=== PATIENT | female | born 2000 | race Caucasian/White ===

== ENCOUNTER 2024-11-19 08:37 | Emergency (ER) | payer OTHER, SELFPAY ==
--- OUTSIDE RECORDS SUMMARY | 2024-11-19 08:40 | XMS_ITS | Data Portability ---
Author Organization [place] - [facility] [employer], [employer] PROJECT COORDIN[employer] [facility] Address [address] [place] [address] Assessment Encounter Date Assessment Date Assessment LastModified by Organization Details LastModified Time 08/30/2024 08/30/2024 ASSESSMENT: Patient is a good candidate for conservative care and the prognosis is for a favorable outcome that achieves the patients' goals. We discussed etiology, activity modifications, home care, and other treatment options. Initially, it is recommended that the patient receive in-office treatment 1 times per week for 8 weeks at which time a re-evaluation will be performed to determine an appropriate change in plan. Initially, treatment will focus on joint manipulation to restore range of motion and reduce pain. We will slowly progress to therapeutic exercises and activities to improve function, strength, and stability may also be used as warranted. If the patient is not responding as expected, more invasive procedures will be discussed along with a referral. All considerations above were discussed with the patient and questions answered to satisfaction. If the patient should have any additional questions, or should the condition evolve or worsen, the patient should not hesitate to contact our office. [email or web address] Not available 08/30/2024 18:44:21 Plan of Treatment Reminders Order Date Submit Date Provider Last Modified By Organization Details Last Modified Time Details Appointments None record ed. Lab None record ed. Referral None record ed. Procedures None record ed. Surgeries None record ed. Imaging None record ed. Medication Orders None record ed. Patient TargetsNo targets recorded. Patient InstructionsNo instructions recorded. Reason for Referral None Reported. Problems Name Problem SNOMED Code Status Onset Date Resolution Date Notes Provider Name and Address Organization Details Recorded Time Thoracic segmental dysfunction 180597380 Active 2024 Denis Bedolla [place] [address] [place], [address], [facility] 18:44:22 Low back pain 701729372 Active 2024 [place] [address], [place], [address], [facility] 18:44:22 Lumbar segmental dysfunction 258498883 Active 2024 [place] [address], [place], [address], [facility] 18:44:22 Somatic dysfunction of sacral spine 075353425 Active 2024 [facility] [place] [address], [place], [address], [facility] 18:44:22 Problem Notes None recorded. Procedures Surgical History Date Name Laterality Status Provider Name and Address Organization Details Recorded Time [address]5490: Spinal manipulation , 3 to 4 regions completed [place], [place] [address], [place], [address], [facility] 08/30/2024 18:45:28 Imaging Results None recorded. Procedure Notes None recorded. Medical Equipment None Reported. Medications Name Sig Start Date Stop Date Status Note LastModified by Organization Details LastModified Time sumatriptan 50 mg tablet Take 1 Tablet (50 mg) by mouth every 2 hours if needed for Migraine. Give at minimum 2 hours apart. Max Dose: 200mg (4 tabs) per 24hrs.* active Not Available Not Available No t Available doxylamine 10 mg-pyridoxine (vit B6) 10 mg tablet,delaye d release active Not Available Not Available No t Available Vitals None Recorded Social History None recorded. Functional Status None recorded. Mental Status None recorded. Family History Nothing Reported. Medical History No medical history recorded. Gynecological HistoryNo gynecological history recorded. Obstetrics History GPAL:G 0 P 0 0 0 0 Past Encounters Encounter ID Performer Location Encounter Start Date Encounter Closed Date Diagnosis/Indication Diagnosis SNOMED-CT Code Diagnosis ICD10 Code Diagnosis Note [id number] [place] [facility] [address] [place] [address] 08/30/2024 12:07:51 08/30/2024 18:54:35 Lumbar segmental dysfunction 968735531 M99.03 Low back pain 637082048 M54.50 Somatic dy sfunction of sacral spine 711555245 M99.04 Thoracic s egmental dysfunction 343800580 M99.02 Health Concerns Section Related Observation LastModified by Organization Detai ls LastModified Time None Recorded Concern Status LastModified by Organization Details LastModified Time None Recorded Advance Directives Directive None Recorded Payers Encounter Date Sequence Insurance Name Policy Number Policy Fong Covered Member ID Fong Member ID Guarantor Name 08/30/2024 1 [employer] [id number] Theodore Ferro [id number] [place] Ferro 08/30/2024 2 [employer] [id number] Singh Rao [id number] Angeles Ferro Notes Date Note Type Note Provider Name and Address Organization Details Recorded Time 08/30/2024 text/html HPI - Lumbar SpineReported bypatient.Location: bilateral Quality:aching Severity:not changing Timing:morning Aggravating Factors:standing Alleviating Factors:ice Patient presents for mid back pain. She was diagnosed with scoliosis 5 years ago. She is currently 17 weeks . Patient was seeing a chiropractor previously. Denis Keven Bedolla DC [address], [place], [address], [facility] [place] - [facility] 08/30/2024 18:47:29 OBGyn Episode No OBEpisode recorded.
--- OUTSIDE RECORDS SUMMARY | 2024-11-19 08:40 | XMS_ITS | Clinical Summary ---
Author Organization [facility] Address [address] [place] [id number] Care Team Providers Care Bag Machine Set Up Operator Name Role Phone NimaSir farrellfelipe Sanchez DO Primary Care Provider [phone] Allergies Active Allergy Reactions Criticality Noted Date Comments Milk Containing Products (Dairy) Headache 06/10/2024 Petrolatum,White *Unknown 09/27/2021 Lips peel, tongue turned white Medications vit 89-tmlv-ftufd-d bravo 27mg iron- 800 mcg-250 mg cap Take by mouth. Activ e ferrous sulfate 325 mg delayed release tabletIndicatio ns:Low ferritin Take one tablet by mouth every other day. 90 Tablet 1 5 Active doxylamine-pyri doxine, vit B6, (Diclegis) 10-10 mg TbECIndications :Nausea and vomiting in (HC) Take 1 Tablet by mouth 2 times daily if needed (nausea and vomiting). 60 Tablet 2 5 Active Breast Pump PurchaseIndicat ions:Lactating mother (HC) Electric breast pump for home use. Gestational age at delivery: TBD weeks. Reason for need: lactating mother. Length of need: 99 months (lifetime use) 1 Each 5 Active Active Problems Problem Noted Date Diagnosed Date Transfusion of blood product declined due to alevism reason 08/21/2024 06/14/2024 Overview (06/14/2024): Estimated Date of Delivery: 02/07/25 Patient's last menstrual period was 05/03/2024 (exact date). GBS: 28wk labs: Last Tdap: 2013 Last Flu vaccine: None OB Labs: ABORH Date Value Ref Range Status 06/10/2024 O Rh Negative Final ANTIBODY SCREEN Date Value Ref Range Status 06/10/2024 Negative Negative Final TREPONEMA PALLIDUM Date Value Ref Range Status 06/10/2024 Non-Reactive Non-Reactive Final RUBELLA AB (IGG), IMMUNE STATUS Date Value Ref Range Status 06/10/2024 3.44 Index Final Comment: Index Interpretation ----- <0.90 Not consistent with immunity 0.90-0.99 Equivocal > or = 1.00 Consistent with immunity HEPATITIS B SURFACE ANTIGEN Date Value Ref Range Status 06/10/2024 NON-REACTIVE NON-REACTIVE Final HEPATITIS C ANTIBODY Date Value Ref Range Status 06/10/2024 NON-REACTIVE NON-REACTIVE Final HIV AG/AB, 4TH GEN Date Value Ref Range Status 06/10/2024 NON-REACTIVE NON-REACTIVE Final VARICELLA ZOSTER VIRUS ANTIBODY (IGG) Date Value Ref Range Status 06/10/2024 1.19 S/CO Final Comment: Signal to Cut-off S/CO Interpretation --------- <1.00 Negative - Antibody not detected > or = 1.00 Positive - Antibody detected HEMOGLOBIN Date Value Ref Range Status 06/10/2024 12.6 11.7 - 15.5 g/dL Final PLATELET COUNT Date Value Ref Range Status 06/10/2024 213 140 - 400 Thousand/uL Final CHLAMYDIA PROBE Date Value Ref Range Status 06/10/2024 Negative Final N GONORRHOEAE PROBE Date Value Ref Range Status 06/10/2024 Negative Final Allergies Allergen Reactions Milk Containing Products (Dairy) Headache Petrolatum,White *Unknown Lips peel, tongue turned white OB History Para Term AB Living 1 0 0 0 0 0 SAB IAB Ectopic Multiple Live Births 0 0 0 0 0 # Outcome Date GA Lbr Ghassan/2nd Weight Sex Type Anes PTL Lv 1 Current Past Medical History: . Date Anemia Anxiety disorder Depression Migraine headache Dairy products seem to casue migraines Past Surgical History: . Laterality Date TYMPANOSTOMY Problems (from 06/10/24 to present) No problems associated with this episode. Isabella Ordaz RN ....06/14/2024 8:11 AM Pap smear for cervical cancer screening 03/05/20 Overview (03/05/2024): 02/2024 NIL Plan: PAP/HPV due 02/2027 Moderate episode of recurrent major depressive d isorder 10/15/2022 Generalized anxiety disorder 10/15/2022 Anxiety and depression 08/07/2018 Estimated Date of Delivery Comme nts Yes 02/07/2025 Based on last me nstrual period of 05/03/2024 (Exact Date) Encounters Date Type Department Care Team Description 11/19/2024 Nurse Triage [facility] Nurse Triage Pcp, No Questions 11/19/20[address] [address] Fani Loving, Dysuria 11/17/2024 3:15 PM CDT OB Encounter [address] [address] Fani Loving, Care (28 weeks 2 days/Still having frequent urination without pain or burning, wondering if baby is head down) 11/17/2024 Travel 11/12/2024 2:15 PM CDT Office Visit [facility] [address] [place] [address] Teto Choudhury MD Urinary Problem (urgency to go to the bathroom/pain comes and goes ) 11/12/2024 Travel 11/12/[address] [address] Nataliia Chavis, DO Lab 11/11/[address] [address] Fani Loving, Questions (Possible Kidney stone or UTI. ) 11/11/2024 Telephone [facility] [address] [place] [address] Nataliia Chavis, Error-please disregard 10/27/2024 2:50 PM CDT Office Visit [facility] [address] [place] [address] Fani Loving, ER Follow up (Possible kidney stone, pain has mostly resolved, having mild back/side pain still.) 10/27/2024 Travel 10/24/2024 12:07 PM CDT - 10/24/2024 1:18 PM CDT Hospital Encounter [facility] [address] [place] [address] Marck Warren MD Discharge Disposition: Home Self Care 10/24/2024 Telephone [facility] [address] [facility] [place] [address] Fani Loving, FOLLOW UP APPOINTMENT 10/24/2024 Hospital Encounter [facility] [address] [place] [address] 10/24/2024 Travel 10/24/2024 Nurse Triage [facility] [address] [place] [address] Nataliia Chavis, Error-please disregard 10/20/2024 2:25 PM CDT OB Encounter [facility] [address] [facility] [place] [address] Fani Loving, Care (24w2d; GTT today; lingering cough sx from one week ago. Has taken some Coricidan as was advised earlier in ) 10/20/2024 Travel 10/06/2024 1:45 PM MANAGER FREELANCE Ancillary Procedure [facility] [address] [place] [address] 10/05/2024 Travel 09/20/2024 4:00 PM MANAGER FREELANCE Ancillary Procedure [facility] [address] [facility] [place] [address] 09/20/2024 3:15 PM MANAGER FREELANCE OB Encounter [facility] [address] [place] [address] Fani Loving, DO Care (20 weeks, still feeling tired, has not started iron supplement, just received in the mail. ) 09/19/2024 Travel 09/16/2024 Orders Only [facility] [address] [place] [address] Fani Loving, DO <No scans attached> 09/14/2024 3:45 PM MANAGER FREELANCE Orders Only [facility] [address] [place] [address] Lab, [facility] 09/14/2024 Travel 09/09/2024 Travel 08/30/2024 Telephone [facility] [address] [place] [address] Fani Loving, DO Questions from Last 3 Months Immunizations Immunization Administration Dates Next Due DTaP 12/15/2006, 3,05/26/2002,03/31,02/02/2002 HIB PRP-T (ActHIB,Hiberix) 03/31/2002,02/02/2002 Hepatitis A (Peds) 03/18/2014 Hepatitis B (Peds) 03/31/2002,02/02/2002 Hepatitis B, Unspecified 12/14/2002 Hib Conjugate, Unspecified 03/06/2003,12/14/2002 Inactivated Polio Vaccine 03/31/2002,02/02/2002 Influenza A (H1N1), Live Intranasal 07/12/2009 MENINGOCOCCAL VACCINE 2 VIAL [id number] (MENVEO) 03/18/2014 MMR 12/15/2006,03/03/2003 Pneumococcal conj 7-Valent (Prevnar 7) 2,03/31/2002,02/02/2002 Pneumococcal, Unspecified 12/14/2002 Polio Virus, Unspecified 12/15/2006,06/03/2003 Tdap 11/17/2024,03/18/2014 Varicella Vaccine 12/15/2006,12/14/2002 Family History Medical History Relation Name Comments Good Health Brother Good Health Father Heart Disease Maternal Aunt 1 Heart valve replacement Unknown Maternal Aunt 2 Heart Disease Maternal Grandfather Arthritis Maternal Grandmother Anxiety disorder Mother Good Health Mother Anxiety disorder Paternal Aunt 1 Unknown Paternal Aunt 2 Good Health Paternal Grandfather Anxiety disorder Paternal Grandmother Depression Paternal Grandmother Mental illness Paternal Grandmother Unknown Paternal Uncle Relation Name Status Comments Brother Alive Father Alive Maternal Aunt 1 Alive Maternal Aunt 2 Alive Maternal Grandfather Alive Maternal Grandmother Alive Mother Alive Paternal Aunt 1 Alive Paternal Aunt 2 Alive Paternal Grandfather Alive Paternal Grandmother Alive Paternal Uncle Alive Social History Tobacco Use Types Packs/Day Years Used Date Smoking Tobacco: Never Smokeless Tobacco: Never Tobacco Cessation:Counseling Given: Not Answered Alcohol Use Standard Drinks/Week Comments Not Currently 0 (1 standard drink = 0.6 oz pur e alcohol) PHQ-2 Answer Date Recorded PHQ-2 TOTAL SCORE 2 02/23/2024 Social Connections Answer Date Recorded Do you often feel lonely or isolated from those around you? 0 02/23/2024 Financial Resource Strain Answer Date R ecorded Difficulty of Paying Living Expenses 3 02/23/2024 Difficulty of Paying Living Expenses Not on file 02/23/2024 Food Insecurity Answer Date Recorded Do you worry your food will run out before you are able to buy more? 1 02/23/2024 Transportation Needs Answer Date Record ed Does lack of transportation keep you from medica l appointments? 1 02/23/2024 Does lack of transportation keep you from work, meetings or getting things that you need? 1 02/23/2024 Housing Stability Answer Date Recorded What is your housing situation today? 1 02/23/2024 Utilities Answer Date Recorded Do you have trouble paying f or utilities (for example, heat, electricity, water, phone)? 1 02/23/2024 Estimated Date of Delivery Comme nts Yes 02/07/2025 Based on last me nstrual period of 05/03/2024 (Exact Date) Sex and Gender Information Value Date Recorded Sex Assigned at Not on file Legal Sex Female 4:27 PM MANAGER FREELANCE Gender Identity Not on file Sexual Orientation Not on file Obstetrics History Para Term AB IAB SAB Ectopic Multiple Livin g Live Births 1 Date Outcome GA Total Labor Labor/2nd/3rd Weight Sex Type Anes PTL Laura A1 A5 Name Clin Current Summary Episode Dates Number of Fetuses Estimated Date of Delivery 06/10/2024 - Present (11/19/2024) 02/07/2025 (set by Belen Padilla RN Student on 06/10/2024 based on Last Menstrual Period on 05/03/2024 (Exact Date)) Dating Summary Based On DEMARCUS GA Diff Last Menstrual Period on 05/03/2024 (Exact Date) 02/07/2025 Working Vitals Pregravid Weight Height TWG (As of 11/19/2024) Pregrav id BMI 1.565 m (5' 1.61) Date GA Fund Present FHR Mvmt BP Weight Edema Alb Glu Ket Dil/ Eff/Sta 5 24w6d Inpatient data not displayed here. See encounter summary. Notes Progress Notes - OB Encounte r - 11/17/2024 - GA:28w2d 11/17/2024 - 28w2d - Fani Loving DO Patient is here for routine care at 28w2d -specific issues: Maternal Rh neg status; blood type Rh neg per NIPT Declines blood products for alevism reasons Low ferritin, on PO iron Concerns today: still experiencing frequent urination. Has sensation of incomplete emptying. No burning, no hematuria. Wonders if she is experiencing urinary frequency due to positioning of fetus. No Contractions, bleeding, loss of fluid. No Headache, vision changes, edema, right upper quadrant pain. Baby is moving well. O: See flowsheet Bedside US: fetus in breech presentation with head on maternal R A/P: TDaP: today Discussed signs/symptoms of labor and when to call Reviewed preeclampsia symptoms Patient experiencing urinary frequency, no infection per review of UA last week. Encouraged her to continue to monitor, may likely be related to gravid uterus and growing fetus. Fani Loving DO .................... 11/17/2024 3:35 PM Progress Notes - OB Encounte r - 10/20/2024 - GA:24w2d 10/20/2024 - 24w2d - Fani Loving DO Patient is here for routine care at 24w2d -specific issues: Maternal Rh neg status; blood type Rh neg per NIPT Declines blood products for alevism reasons Low ferritin, on PO iron Concerns today: having some URI symptoms - lost voice, ear pain, cough. Took Coricidin HBP medication and had been taking Tylenol initially, but now not as much. Still feeling run down. Dad learned that he had history of jaundice at . No Contractions, bleeding, loss of fluid No Headache, vision changes, edema, right upper quadrant pain. Baby is moving well Objective: See flowsheet Gen: alert, pleasant, NAD Head: Normocephalic/atraumatic Eyes: no conjunctival injection, EOMI Ears: external ears normal, canals clear b/l, and TMs dalton with normal light reflex Lungs: CTA B/l, breathing comfortably on room air Heart: RRR, no M/G/R Abdomen: gravid uterus U+4 Assessment/Plan: care - Labs today: GTT, Hgb, Syphilis Discussed signs/symptoms of labor and when to call Reviewed preeclampsia symptoms RTC in 4 weeks, sooner if concerns. URI - Reviewed appropriate supportive cares for including PRN Tylenol, cetirizine, nasal saline or Flonase. Can continue Coricidin as well for symptom relief. If symptoms worsening, recommend follow up. Fani Loving DO .................... 10/20/2024 2:59 PM Progress Notes - OB Encounte r - 09/20/2024 - GA:20w0d 09/20/2024 - 20w0d - Fani Loving DO Patient is here for routine care at 20w0d -specific issues: Rh neg; blood type Rh neg as well Declines blood products for alevism reasons Low ferritin, on PO iron Concerns today: still feeling tired, hasn't started iron supplement yet. Continues to experience periodic nausea - finds that taking Diclegis HS is helpful in preventing AM nausea. No Contractions, bleeding, loss of fluid. No Headache, vision changes, edema, right upper quadrant pain. Baby is moving Discussed signs/symptoms of labor and when to call Reviewed preeclampsia symptoms RTC in 4 weeks, sooner if needed Fani Loving DO .................... 09/20/2024 3:29 PM GER FREELANCE Progress Notes - Orders Only - 09/16/2024 - GA:19w3d 09/16/2024 - 19w3d - Fani Loving DO Rx for PO iron sent to pharmacy for low ferritin. Fani Loving DO .................... 09/16/2024 2:28 PM GER FREELANCE Progress Notes - OB Encounte r - 08/20/2024 - GA:15w4d 08/20/2024 - 15w4d - Fani Loving DO Patient is here for routine care at 15w5d -specific issues: Rh neg status Declines blood products for alevism reasons Concerns today: Doing relatively well. Has had some episodes of vaginal itching that improved with increased hydration, but now having increased urination. No fevers, abdominal pain, or significant changes in vaginal discharge. Declines UA and T/G/C today, but will reach out in the future if she becomes more symptomatic prior to our next appointment. Patient shares that she is Confucianist and declines blood products. Would like to ensure this is noted in her chart. She is discerning whether or not she will receive Rhogam at 28 weeks & delivery. Discussed today. Will attempt to add on blood type to Sai screening. She is okay with medications for baby at , but would decline blood products for baby as well. No contractions, bleeding, loss of fluid. Discussed signs/symptoms of labor and when to call Reviewed preeclampsia symptoms RTC in 4 weeks or sooner if needed. Schedule anatomy scan at 20 weeks. Fani Loving DO .................... 08/21/2024 12:39 PM GER FREELANCE Progress Notes - OB Encounte r - 07/23/2024 - GA:11w4d 07/23/2024 - - Fani Loving DO FIRST OB VISIT HPI: Angeles Ferro is a 23 y.o. female at 11w4d with ya intrauterine here today for a initial OB exam. She is here with her , Theodore Estimated due date is Estimated Date of Delivery: 02/07/25 based on LMP. Nausea/Vomiting: yes, improved with vitamin B6 and doxyalamine Fatigue: yes Bleeding: no Taking vitamins: yes Options of cell-free DNA testing, serum AFP, SMA and CF carrier screeing were discussed. Patient is interested in pursuing testing with cfDNA at this time. AMA: no Previous : n/a No FHX of preeclampsia or eclampsia. MENSTRUAL HISTORY LMP:Patient's last menstrual period was 05/03/24. 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 No history of STIs OB History Para Term AB Living 1 SAB IAB Ectopic Multiple Live Births # Outcome Date GA Lbr Ghassan/2nd Weight Sex Type Anes PTL Lv 1 Current Past Medical History: . Date Anemia Anxiety disorder Depression Migraine headache Dairy products seem to casue migraines Past Surgical History: . Laterality Date TYMPANOSTOMY Family History Problem Relation Age of Onset Anxiety disorder Mother Good Health Mother Good Health Father Good Health Brother Heart Disease Maternal Aunt 50 Heart valve replacement Unknown Maternal Aunt Anxiety disorder Paternal Aunt Unknown Paternal Aunt Unknown Paternal Uncle Arthritis Maternal Grandmother Heart Disease Maternal Grandfather Depression Paternal Grandmother Anxiety disorder Paternal Grandmother Mental illness Paternal Grandmother Good Health Paternal Grandfather Social History Tobacco Use Smoking status: Never Smokeless tobacco: Never Substance Use Topics Alcohol use: Not Currently Current Outpatient Medications Medication Sig Adapalene (Differin) 0.3 % topical gel Apply topically to affected area(s) once daily. ascorbic acid, vitamin C, (Vitamin C) 1,000 mg tablet Take 1,000 mg by mouth once daily. dpjvmni-skwsclvcywikw-sxhojhzw (Excedrin Migraine) 250-250-65 mg Take 1 Tablet by mouth every 6 hours if needed for Headache. Max acetaminophen dose: 4000mg in 24 hrs. cholecalciferol, Vitamin D3, (Vitamin D-3) 5,000 unit tab tablet Take by mouth once daily. clindamycin 1% (CLEOCIN-T) 1 % lotion Apply topically to affected area(s) 2 times daily. doxylamine-pyridoxine, vit B6, (Diclegis) 10-10 mg TbEC Take 1 Tablet by mouth 2 times daily if needed (nausea and vomiting). ferrous sulfate (FeroSuL) 325 mg (65 mg iron) tablet Take 325 mg by mouth once daily with a meal. ketoconazole 2% topical (NIZORAL) cream Apply to areas around the nose twice daily for a month or until clear vit 46-iyie-ekvea-dha 27mg iron- 800 mcg-250 mg cap Take by mouth. pyridoxine, vitamin B6, (Vitamin B-6) 25 mg tablet Take 25 mg by mouth once daily. SUMAtriptan (IMITREX) 50 mg tablet Take 1 Tablet (50 mg) by mouth every 2 hours if needed for Migraine. Give at minimum 2hrs apart. Max Dose: 200mg per 24hrs. No current facility-administered medications for this visit. Medications have been reviewed by me and are current to the best of my knowledge and ability. ALLERGIES Milk containing products (dairy) and Petrolatum,white MENTAL HEALTH HISTORY History of psychiatric diagnosis: depression and anxiety, not currently requiring treatment Current mental health provider: No Currently taking any psychiatric medications? No REVIEW OF SYSTEMS Comprehensive ROS complete and negative other than noted in HPI and on OB Questionnaire. PHYSICAL EXAM BP 101/66 (Cuff Site: Left Arm, Position: Sitting, Cuff Size: Adult Regular) Pulse 72 Wt 52.5 kg (115 lb 12.8 oz) LMP 05/03/2024 (Exact Date) BMI 21.45 kg/m General: Pleasant female in no acute distress, alert and appropriate HEENT: Conjunctiva clear, nares patent, TMs normal, mucous membranes moist Neck: No lymphadenopathy or thyromegaly Heart: Regular rate and rhythm Lungs: Clear to auscultation bilaterally; breathing comfortably on room air Abdomen: Nontender. : patient declined Extremities: No edema Skin: No concerning lesions Psych: normal affect HR: visualized on bedside US Ultrasound #1: 8 weeks DEMARCUS: 02/07/25, based on LMP ASSESSMENT/PLAN Normal first visit. 1. Discussed orientation, general information, lifestyle, nutrition, exercise, warning signs, resources, lab testing, risk screening. Questions answered. 2. Typical remaining course reviewed. 3. Labor signs/warning signs reviewed. 4. Appropriate weight gain during and healthy eating/exercise reviewed at length. 5. Ultrasound for dating reviewed. 6. Reviewed labs. 7. discussed risks versus benefits of risk screening; patient elects to proceed with cfDNA (Sai) collection today 8. Followup in 4 weeks, sooner if needed Hx of scoliosis Anticipate consultation with anesthesia later in as patient anticipates she may want epidural during labor. 30 minutes spent in chart review, cyxj-zo-vkhs with patient, and documentation on day of encounter. GER FREELANCE Progress Notes - OB Encounte r - 06/10/2024 - GA:5w3d 06/10/2024 - 5w3d - Belen Padilla RN Student SUBJECTIVE: Angeles Ferro is a 23 y.o. female, , who presents for confirmation and ob education. Patient presents to the clinic alone. Had positive test at home. This was Planned, Desired. Patient was not on contraception. 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 MENSTRUAL HISTORY: Patient's last menstrual period was 05/03/2024 (exact date).: Cycle Regularity: Irregular. Stopped control (Nuva ring) in July 2023. Had a total of 6 periods since July 2023. Last period 05/03/24. Past Medical History: . Date Anemia Anxiety disorder Depression Migraine headache Dairy products seem to casue migraines OB History Para Term AB Living 1 SAB IAB Ectopic Multiple Live Births # Outcome Date GA Lbr Ghassan/2nd Weight Sex Type Anes PTL Lv 1 Current 5P'S SUBSTANCE ABUSE SCREEN FOR ALCOHOL, DRUGS AND TOBACCO: Did any of your parents have a problem with using alcohol or drugs? No Do any of your friends (peers) have problems with drug or alcohol use? No Does your partner have a problem with drug or alcohol use? No Before you knew you were , how often did you drink beer, wine, wine coolers or liquor or use any kind of drug? Sometimes In the past month, how often did you drink beer, wine, wine coolers or liquor or use any kind of drug? Rarely How much did you smoke, vape or use tobacco or nicotine in any form before you knew you were ? Don't Smoke, Vape or use Tobacco Genetic Screening Genetic Screening/Teratology Counseling- Includes patient, baby's father, or anyone in either family with: Patient's age 35 years or older as of estimated date of delivery: No Thalassemia (Icelandic, Taiwanese, Mediterranean, or background): MCV less than 80: No Neural tube defect (Meningomyelocele, Spina bifida, or Anencephaly): No Congenital heart defect: No Down syndrome: No Gustabo-Sachs (Ashkenazi Islam, Cajun, Puerto Rican Chilean): No Compa disease (Ashkenazi Islam): No Familial dysautonomia (Ashkenazi Islam): No Sickle cell disease or trait (): No Hemophilia or other blood disorders: No Muscular dystrophy: No Cystic fibrosis: No [place]'s chorea: No Intellectual disability and/or autism: No Other inherited genetic or chromosomal disorder: No Maternal metabolic disorder (eg. Type 1 diabetes, PKU): No Patient or baby's father had child with defects not listed above: No Recurrent loss, or a stillbirth: No Medications (including supplements, vitamins, herbs, or OTC drugs)/illicit/recreational drugs/alcohol since last menstrual period: Yes If yes, agent(s) and strength/dosage: 3 drinks since last period, Vit D3, Iron, Vit C, Excedrin x 1 CURRENT MEDICATIONS: Current Outpatient Medications Medication Sig Adapalene (Differin) 0.3 % topical gel Apply topically to affected area(s) once daily. ascorbic acid, vitamin C, (Vitamin C) 1,000 mg tablet Take 1,000 mg by mouth once daily. pqapmre-lemrmxhtjqvoa-mvbqnsvq (Excedrin Migraine) 250-250-65 mg Take 1 Tablet by mouth every 6 hours if needed for Headache. Max acetaminophen dose: 4000mg in 24 hrs. cholecalciferol, Vitamin D3, (Vitamin D-3) 5,000 unit tab tablet Take by mouth once daily. clindamycin 1% (CLEOCIN-T) 1 % lotion Apply topically to affected area(s) 2 times daily. ferrous sulfate (FeroSuL) 325 mg (65 mg iron) tablet Take 325 mg by mouth once daily with a meal. ketoconazole 2% topical (NIZORAL) cream Apply to areas around the nose twice daily for a month or until clear vit 28-nerr-bldat-dha 27mg iron- 800 mcg-250 mg cap Take by mouth. SUMAtriptan (IMITREX) 50 mg tablet Take 1 Tablet (50 mg) by mouth every 2 hours if needed for Migraine. Give at minimum 2hrs apart. Max Dose: 200mg per 24hrs. No current facility-administered medications for this visit. Medications have been reviewed by me and are current to the best of my knowledge and ability. ALLERGIES: Milk containing products (dairy) and Petrolatum,white OBJECTIVE: Ht 1.565 m (5' 1.61) Wt 51.8 kg (114 lb 3.2 oz) LMP 05/03/2024 (Exact Date) BMI 21.15 kg/m ,URINE (no units) Date Value 02/23/2024 Negative ASSESSMENT/PLAN: No diagnosis found. EDUCATION/PATIENT INSTRUCTIONS - Advised patient to start/continue vitamin. - Discussed risk of using alcohol, tobacco, other drugs in . - Discussed healthy lifestyle in . - Provided copy of [facility] book and book inserts, discussed liaf-hpu-ortrtzl medications, and follow up. - Encouraged patient to call clinic at [phone] with any vaginal bleeding, fluid leaking from vagina, severe abdominal pain, nausea with severe vomiting, fever higher than 100.4F, painful urination, headache not relieved by Tylenol, or other concerns - labs completed with today's visit. - Patient informed to schedule 1st trimester dating ultrasound between 7-10 weeks. - Initial OB appointment with FP/OB scheduled. PHQ-9, and COVID-19 vaccine discussion to be completed at this visit. 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 Belen Padilla, TRE Student .................... 06/10/2024 2:52 PM Last Filed Vital Signs Vital Sign Reading Time Taken Comments Blood Pressure 108/72 11/17/2024 3:26 PM CDT Pulse 78 11/17/2024 3:26 PM CDT Temperature 37.1 C (98.8 F) 10/27/2024 3:03 PM CDT Respiratory Rate 20 10/24/2024 12:31 PM CDT Oxygen Saturation 99% 11/12/2024 2:05 PM CDT Inhaled Oxygen Concentration - - Weight 60.8 kg (134 lb) 11/17/2024 3:26 PM CDT Height 156.5 cm (5' 1.61) 06/10/2024 2:03 PM CD T Body Mass Index 24.82 06/10/2024 2:03 PM CDT Plan of Treatment Upcoming Encounters Date Type Department Care Team (Late st Contact Info) Description 11/29/2024 3:15 PM CDT OB Encounter [facility] [address] [place] [address] Fani Loving, [address] [place] [address] 12/15/2024 3:40 PM CDT OB Encounter [facility] [address] [place] [address] Fani Loving DO [address] [facility] [place] [address] 12/29/2024 3:15 PM CDT OB Encounter [facility] [address] [facility] [address] Fani Loving, DO [address] [facility] [address] 01/12/2025 3:40 PM CDT OB Encounter [facility] [address] [place] [address] Fani Loving, DO [address] [place] [address] 01/19/2025 2:25 PM CDT OB Encounter [facility] [address] [facility] [address] Fani Loving, DO [address] [place] [address] 01/26/2025 2:25 PM CDT OB Encounter [facility] [address] [place] [address] Fani Loving, DO [address] [place] [address] 02/02/2025 2:25 PM CDT OB Encounter [facility] [address] [place] [address] Fani Loving, DO [address] [facility] [address] Health Maintenance Due Date Last Done Comments HPV series for age 9-26 (1 - 3-dose series) 2016 COVID-19 vaccine series (2023- season) 2024 07/27/2021, 12/18/2020, 11/27/2020 Depression screening for age 12+ 02/22/2025 02/23/2024, 02/25/2023, 12/19/2022, Additional history exists Influenza Vaccine (Season Ended) 2025 BMI (ht and wt on same day) for age 18+ 06/10/2025 06/10/2024, 02/23/2024, 08/19/2022, Additional history exists Chlamydia for age 16-24 06/10/2025 06/10/2024, 02/22 Pap test for age 21-65 02/22/2027 02/23/2024 Tetanus booster 11/17/2034 11/17/2024, 03/18/2014 Pneumococcal series for age 6-49 Aged Out 12/14/2002, 05/26/2002, 03/31/2002, Additional history exists No longer eligible based on patient's age to complete this topic HIV for age 15-65 Completed 06/10/2024 Hepatitis C screening for age 18-79 Completed 06/10/2024 Tdap Completed 11/17/2024, 03/18/2014 RSV vaccine for adults or (No Doses Required) Completed Procedures Procedure Name Priority Date/Time Associated Diagnosis Comments URINALYSIS MACROSCOPIC - [facility] ONLY POC DIP ([facility]) Routine 11/12/2024 2:17 PM CDT Urinary frequency URINALYSIS MICROSCOPIC Routine 11/12/2024 2:16 PM CDT Urinary frequency URINE CULTURE Routine 11/12/2024 2:16 PM CDT Urinary frequency URINALYSIS MACROSCOPIC - [facility] ONLY POC DIP ([facility]) Routine 10/27/2024 3:32 PM CDT Flank pain URINE CULTURE Routine 10/27/2024 3:31 PM CDT Flank pain URINE CULTURE Add On 10/24/2024 12:50 PM CDT URINALYSIS MICROSCOPIC STAT 10/24/2024 12:50 PM CDT UA W/ SEDIMENT EXAM REFLEXED PER CRITERIA STAT 10/24/2024 12:50 PM CDT TREPONEMA PALLIDUM Routine 10/20/2024 2: 39 PM CDT Encounter for care (HC) GLUCOSE TOLERANCE, GESTATIONAL SCREEN 1H Routine 10/20/2024 2:39 PM CDT Encounter for care (HC) HEMOGLOBIN Routine 10/20/2024 2:39 PM CDT Encounter for care (HC) US OB LIMITED ANY TRI TA Routine 10/06/2024 2:10 PM MANAGER FREELANCE Encounter for care (HC) US OB BASIC ANATOMY SCREEN SINGLE TA Routine 09/20/2024 4:24 PM MANAGER FREELANCE Encounter for supervision of other normal , first trimester (HC) VITAMIN D 25 (DEFICIENCY) Routine 09/14/2024 3:43 PM MANAGER FREELANCE Vitamin D deficiency FERRITIN Routine 09/14/2024 3:43 PM MANAGER FREELANCE Low ferritin HEMOGLOBIN Routine 09/14/2024 3:43 PM MANAGER FREELANCE Low ferritin GC CHLAMYDIA TRACH PROBE Routine 06/10/2024 3:50 PM CDT Encounter for supervision of other normal , first trimester (HC) HIV 1/2 ANTIGEN/ANTIBODY FOURTH GENERATION W/RFL ([facility]) Routine 06/10/2024 3:44 PM CDT Encounter for supervision of other normal , first trimester (HC) ANTI HCV Routine 06/10/2024 3:44 PM CDT Encounter for supervision of other normal , first trimester (HC) ATOMIC SPECTROSCOPIST THIN PREP PAP SCREEN IMAGED Routine 02/23/2024 8:43 AM CDT Screening for cervical cancer from Last 3 Months or Most Recently Relevant to Health Maintenance Results * (ABNORMAL) POCT Urinalysis Dipstick Only [[id number]] (11/12/2024 2:17 PM CDT) Only the most recent of2 resultswithin the time period is included. PH 7.0 5.0 - 8.0 [facility] SPECIFIC GRAVITY 1.020 1.001 - 1.035 [facility] GLUCOSE NEGATIVE NEGATIVE [facility] BILIRUBIN NEGATIVE NEGATIVE [facility] KETONES NEGATIVE NEGATIVE [facility] OCCULT BLOOD NEGATIVE NEGATIVE [facility] PROTEIN NEGATIVE NEGATIVE [facility] NITRITE NEGATIVE NEGATIVE [facility] LEUKOCYTE ESTERASE TRACE(A) NEGATIVE [facility] Urine URINE SPECIMEN / Unknown 11/12/2024 2:17 PM CDT 11/12/2024 2:17 PM CDT us Teto Choudhury MD URINE Final Result [facility] [address] [place] [address], [facility] [address] [place] [address] * URINALYSIS MICROSCOPIC [59228.1] - routine (11/12/2024 2:16 PM CDT) Only the most recent of2 resultswithin the time period is included. RBC 0-2 0-2, None Seen /HPF 11/12/2024 10:28 PM CDT [facility] WBC 0-2 0-2, 3-5, None Seen /HPF 11/12/2024 10:28 PM CDT [facility] BACTERIA None Seen None Seen, Rare, Few Bacteria/ HPF 11/12/2024 10:28 PM CDT [facility] EPITHELIAL CELLS None Seen None Seen, Few Epi/HPF 11/12/2024 10:28 PM CDT [facility] HYALINE CASTS 0-2 0-2, 3-5 /LPF 11/12/2024 10:28 PM CDT [facility] Urine URINE SPECIMEN / Unknown Non-Blood / Unknown 11/12/2024 2:16 PM CDT 11/12/2024 2:17 PM CDT Teto Choudhury MD URINE Final Result Performing Organization Address [facility] Co de Phone Number [facility] [address] [address], [place] * URINE CULTURE [98410.2] (11/12/2024 2:16 PM CDT) Only the most recent of3 resultswithin the time period is included. CULTURE <10,000 CFU/mL multiple organisms 11/14/2024 2:20 PM CDT [facility] Urine URINE SPECIMEN / Unknown Non-Blood / Unknown 11/12/2024 2:16 PM CDT 11/12/2024 2:17 PM CDT Teto Choudhury MD MICROBIOLOGY Final Result Performing Organization Address [facility] Co de Phone Number [facility] [address] [place] [address], [place] * (ABNORMAL) Urinalysis W Reflex Microscopic if Positive (10/24/2024 12:50 PM CDT) COLOR Yellow Yellow Color 10/24/2024 1:03 PM CDT [facility] CLARITY Slightly Cloudy(A) Clear Clarity 10/24/2024 1:03 PM CDT [facility] SPECIFIC GRAVITY,URINE 1.015 1.010, 1.015, 1.020, 1.025 10/24/2024 1:03 PM CDT [facility] PH,URINE >=9.0(A) 6.0, 7.0, 8.0, 5.5, 6.5, 7.5, 8.5 10/24/2024 1:03 PM CDT [facility] UROBILINOGEN, QUALITATIVE Normal Normal EU/dl 10/24/2024 1:03 PM CDT [facility] PROTEIN, URINE 30(A) Negative mg/dL 10/24/2024 1:03 PM CDT [facility] GLUCOSE, URINE Negative Negative mg/dL 10/24/2024 1:03 PM CDT [facility] KETONES,URINE Negative Negative mg/dL 10/24/2024 1:03 PM CDT [facility] BILIRUBIN,URI NE Negative Negative 10/24/2024 1:03 PM CDT [facility] OCCULT BLOOD,URINE Moderate(A) Negative 10/24/2024 1:03 PM CDT [facility] NITRITE Negative Negative 10/24/2024 1:03 PM CDT [facility] LEUKOCYTE ESTERASE Moderate(A) Negative 10/24/2024 1:03 PM CDT [facility] Urine URINE SPECIMEN / Unknown Non-Blood / Unknown 10/24/2024 12:50 PM CDT 10/24/2024 1:00 PM CDT us Marck Warren MD URINE Final Resu lt [facility] [address] [place] [address] * TREPONEMA PALLIDUM (10/20/2024 2:39 PM CDT) TREPONEMA PALLIDUM Non-Reacti ve Non-Reacti ve 10/20/2024 11:46 PM CDT [facility] Blood BLOOD SPECIMEN / Unknown [facility] / Unknown 10/20/2024 2:39 PM CDT 10/20/2024 2:39 PM CDT us Fani Loving DO SEND OUTS Final Resu lt [facility] [address] [place] [address], * HEMOGLOBIN (10/20/2024 2:39 PM CDT) Only the most recent of2 resultswithin the time period is included. HEMOGLOBIN 12.0 11.7 - 15.5 g/dL [facility] Blood BLOOD SPECIMEN / Unknown 10/20/2024 2:39 PM CDT 10/20/2024 2:40 PM CDT Fani Loving DO HEMATOLOGY Final Resu lt Performing Organization Address City/[facility]/ZIP Co de Phone Number [facility] [address] [place] [address], [place] [phone] [facility] [address] [place] [address] * GLUCOSE TOLERANCE, GESTATIONAL SCREEN 1H (10/20/2024 2:39 PM CDT) GLUCOSE, GESTATIONAL SCREEN (50G)-140 CUTOFF 77 <140 mg/dL [facility] Blood BLOOD SPECIMEN / Unknown 10/20/2024 2:39 PM CDT 10/20/2024 2:40 PM CDT Fani Loving DO CHEMISTRY Final Resu lt Performing Organization Address [facility] Co de Phone Number [facility] [address] [place] [address], [place] [phone] [facility] [address] [place] [address] * US OB LIMITED ANY TRI TA (10/06/2024 2:10 PM MANAGER FREELANCE) Anatomical Region Laterality Modality , 2or 3 TRIMESTER, 1ST TRIMESTER Ultrasound 10/07/2024 7:09 AM MANAGER FREELANCE Impressions 10/07/2024 7:09 AM MANAGER FREELANCE Normal face. Dictated by Rex Avila MD @ 10/07/2024 7:09:05 AM (Electronically Signed) Narrative 10/07/2024 7:09 AM MANAGER FREELANCE For Patients: As a result of the 21st Century Cures Act, medical imaging exams and procedure reports are released immediately into your electronic medical record. You may view this report before your referring provider. If you have questions, please contact your health care provider. INDICATION: Incomplete visualization of face, follow-up COMPARISON: 09/20/2024 TECHNIQUE: Real time dalton scale imaging of the fetus was performed. FINDINGS: Sonographic imaging demonstrates a single living intrauterine gestation. Fetus demonstrates a regular cardiac rate of 152 beats per minute. Fetus has a vertex position. The placenta lies posterior fundal without evidence of placenta previa. Amniotic fluid volume appears normal. Single deepest vertical pocket: 4.4 cm. face appears normal. Procedure Note Rex Avila MD - 10/07/2024 For Patients: As a result of the Cures Act, medical imagingexams and procedure reports are released immediately into your electronicmedical record. You may view this report before your referring provider.If you have questions, please contact your health care provider. INDICATION: Incomplete visualization of face, follow-up COMPARISON: 09/20/2024 TECHNIQUE: Real time dalton scale imaging of the fetus was performed. FINDINGS: Sonographic imaging demonstrates a single living intrauterine gestation.Fetus demonstrates a regular cardiac rate of 152 beats per minute. Fetushas a vertex position. The placenta lies posterior fundal without evidenceof placenta previa. Amniotic fluid volume appears normal. Single deepestvertical pocket: 4.4 cm. face appears normal. IMPRESSION: Normal face. Dictated by Rex Avila MD @ 10/07/2024 7:09:05 AM (Electronically Signed) us Fani Loving DO US Final Resu lt * US OB BASIC ANATOMY SCREEN SINGLE TA (09/20/2024 4:24 PM MANAGER FREELANCE) Anatomical Region Laterality Modality , 2or 3 TRIMESTER Ultrasound 09/21/2024 7:25 AM MANAGER FREELANCE Impressions 09/21/2024 7:25 AM MANAGER FREELANCE Concordance of clinical and sonographic dating. Incomplete visualization of the face. Remainder of the anatomic survey normal. Short-term follow-up recommended. Dictated by Rex Avila MD @ 09/21/2024 7:25:38 AM (Electronically Signed) Narrative 09/21/2024 7:25 AM MANAGER FREELANCE For Patients: As a result of the Cures Act, medical imaging exams and procedure reports are released immediately into your electronic medical record. You may view this report before your referring provider. If you have questions, please contact your health care provider. INDICATION: Evaluate anatomy. COMPARISON: none TECHNIQUE: Real time dalton scale imaging of the fetus was performed as well as color Doppler analysis of the umbilical vessels. FINDINGS: Sonographic imaging demonstrates a single living intrauterine gestation. Fetus demonstrates a regular cardiac rate of 146 beats per minute. Fetus has a vertex position. The placenta lies fundal posterior without evidence of placenta previa. Amniotic fluid volume appears normal. Single deepest vertical pocket: 3.9 cm. The cervix is closed and measures 3.1 cm in length. The composite ultrasound gestational age is calculated at 20 weeks 1 day with an estimated sonographic due date of 02/06/2025. The estimated weight is 334 grams which lies at the 53rd %. The following biometric measurements were obtained: Biparietal diameter: 4.7 cm/20 weeks 1 day 54th% Head circumference: 17.0 cm/19 weeks 5 days 25th% Abdominal circumference: 15.1 cm/20 weeks 3 days 57th% Femur length: 3.2 cm/20 weeks 0 days 41st% The HC/AC ratio measures: 1.12 range (1.09-1.26) On anatomic survey, there is a normal appearance of the cerebral ventricles, cavum septi pellucidi, cisterna magna and cerebellum. The nose, lips, and facial profile appear normal. Incomplete visualization of the face view. The cervical, thoracic and lumbar spine are well visualized and appear normal. There is a normal four-chamber heart view and the left and right ventricular outflow tracts appear normal. The diaphragm and stomach appear normal. The kidneys and bladder also appear normal. There is a normal three-vessel cord and cord insertion site. The four extremities appear normal. Procedure Note Rex Avila MD - 09/21/2024 For Patients: As a result of the Cures Act, medical imagingexams and procedure reports are released immediately into your electronicmedical record. You may view this report before your referring provider.If you have questions, please contact your health care provider. INDICATION: Evaluate anatomy. COMPARISON: none TECHNIQUE: Real time dalton scale imaging of the fetus was performed as well as colorDoppler analysis of the umbilical vessels. FINDINGS: Sonographic imaging demonstrates a single living intrauterine gestation.Fetus demonstrates a regular cardiac rate of 146 beats per minute. Fetushas a vertex position. The placenta lies fundal posterior without evidenceof placenta previa. Amniotic fluid volume appears normal. Single deepestvertical pocket: 3.9 cm. The cervix is closed and measures 3.1 cm inlength. The composite ultrasound gestational age is calculated at 20weeks 1 day with an estimated sonographic due date of 02/06/2025. Theestimated weight is 334 grams which lies at the 53rd %. The following biometric measurements were obtained: Biparietal diameter: 4.7 cm/20 weeks 1 day 54th% Head circumference: 17.0 cm/19 weeks 5 days 25th% Abdominal circumference: 15.1 cm/20 weeks 3 days 57th% Femur length: 3.2 cm/20 weeks 0 days 41st% The HC/AC ratio measures: 1.12 range (1.09-1.26) On anatomic survey, there is a normal appearance of the cerebralventricles, cavum septi pellucidi, cisterna magna and cerebellum. Thefetal nose, lips, and facial profile appear normal. Incompletevisualization of the face view. The cervical, thoracic and lumbar spineare well visualized and appear normal. There is a normal four-chamberheart view and the left and right ventricular outflow tracts appearnormal. The diaphragm and stomach appear normal. The kidneys andbladder also appear normal. There is a normal three-vessel cord and fetalcord insertion site. The four extremities appear normal. IMPRESSION: Concordance of clinical and sonographic dating. Incomplete visualization of the face. Remainder of the anatomicsurvey normal. Short-term follow-up recommended. Dictated by Rex Avila MD @ 09/21/2024 7:25:38 AM (Electronically Signed) us Fani Loving DO US Final Resu lt * VITAMIN D 25 (DEFICIENCY) (09/14/2024 3:43 PM MANAGER FREELANCE) VITAMIN D,25-OH,TOTAL,IA 39 30 - 100 ng/mL [facility] Comment: Vitamin D Status 25-OH Vitamin D: Deficiency: <20 ng/mL Insufficiency: 20 - 29 ng/mL Optimal: > or = 30 ng/mL For 25-OH Vitamin D testing on patients on D2-supplementation and patients for whom quantitation of D2 and D3 fractions is required, the QuestAssureD(TM) 25-OH VIT D, (D2,D3), LC/MS/MS is recommended: order code 58036 (patients >2yrs). See Note 1 Note 1 For additional information, please refer to http://education.[employer]/faq/WRH880 (This link is being provided for informational/ educational purposes only.) Blood BLOOD SPECIMEN / Unknown 09/14/2024 3:43 PM MANAGER FREELANCE 09/14/2024 3:44 PM MANAGER FREELANCE Narrative [facility] - 09/15/2024 4:33 AM MANAGER FREELANCE FASTING:NO FASTING: NO us Fani Loving DO SEND OUTS Final Resu lt [facility] [address] [place] [address], [place] [phone] [facility] [address] [facility] [place] [address] * FERRITIN (09/14/2024 3:43 PM MANAGER FREELANCE) FERRITIN 17 16 - 154 ng/mL [facility] Blood BLOOD SPECIMEN / Unknown 09/14/2024 3:43 PM MANAGER FREELANCE 09/14/2024 3:44 PM MANAGER FREELANCE Narrative [facility] - 09/15/2024 4:33 AM MANAGER FREELANCE FASTING:NO FASTING: NO us Fani Loving DO CHEMISTRY Final Resu lt [employer] [facility] [address] [facility] [place] [address], [place] [phone] [facility] [address] [place] [address] * ATOMIC SPECTROSCOPIST PROBE - GC CHLAMYDIA DNA PCR [[id number]] (06/10/2024 3:50 PM CDT) CHLAMYDIA PROBE Negative 2:54 PM CDT [facility] N GONORRHOEAE PROBE Negative 06/11/2024 2:54 PM CDT [facility] Other URINE SPECIMEN / Unknown Non-Blood / Unknown 06/10/2024 3:50 PM CDT 06/10/2024 3:50 PM CDT Fani Loving DO MICROBIOLOGY Final Resu lt [facility] [address] [place] [address], * HIV 1/2 ANTIGEN/ANTIBODY FOURTH GENERATION W/RFL ([facility]) (06/10/2024 3:44 PM CDT) Pathologist [facility] HIV AG/AB, 4TH GEN NON-REACT RHONDA NON-REACT RHONDA [facility] Comment: HIV-1 antigen and HIV-1/HIV-2 antibodies were not detected. There is no laboratory evidence of HIV infection. PLEASE NOTE: This information has been disclosed to you from records whose confidentiality may be protected by state law. If your state requires such protection, then the state law prohibits you from making any further disclosure of the information without the specific written consent of the person to whom it pertains, or as otherwise permitted by law. A general authorization for the release of medical or other information is NOT sufficient for this purpose. For additional information please refer to http://education.[employer].Base CRM/faq/JGR432 (This link is being provided for informational/ educational purposes only.) The performance of this assay has not been clinically validated in patients less than 2 years old. Blood BLOOD SPECIMEN / Unknown 06/10/2024 3:44 PM CDT 06/10/2024 3:45 PM CDT Fani Sherrie Fabienne DO SEND OUTS Final Resu lt Performing Organization Address [facility]/ZIP Co de Phone Number [employer] [facility] [address] [place] [address], [facility] [address] [place] [address] * ANTI HCV (06/10/2024 3:44 PM CDT) HEPATITIS C ANTIBODY NON-REACTI VE NON-REACT RHONDA [facility] Comment: HCV antibody was non-reactive. There is no laboratory evidence of HCV infection. In most cases, no further action is required. However, if recent HCV exposure is suspected, a test for HCV RNA (test code 52231) is suggested. For additional information please refer to http://education.POPVOX/faq/BYK41w7 (This link is being provided for informational/ educational purposes only.) Blood BLOOD SPECIMEN / Unknown 06/10/2024 3:44 PM CDT 06/10/2024 3:45 PM CDT Fani Loving DO SEND OUTS Final Resu lt Performing Organization Address [facility] Co de Phone Number [employer] [facility] [address] [place] [address], [place] [phone] [facility] [address] [place] [address] * ATOMIC SPECTROSCOPIST THIN PREP PAP SCREEN IMAGED [[id number]] (02/23/2024 8:43 AM CDT) Case Report Gynecologic Cytology Report Case: [id number] Authorizing Provider: Nataliia Chavis DO Collected: 02/23/2024 0843 Ordering Location: [facility] Received: 02/23/2024 0917 Clinic First Screen: Shruthi Coleman Specimen: ATOMIC SPECTROSCOPIST ThinPrep Vial Screening, Cervical 03/05/2024 11:44 AM CDT [facility]-C ENTRAL LABORATORY INTERPRETATION/ RESULT NEGATIVE FOR INTRAEPITHELIAL LESION OR MALIGNANCY (NIL) (none) 03/05/2024 11:44 AM CDT [facility]-C ENTRAL LABORATORY at 1144 CDT SPECIMEN ADEQUACY Satisfactory for evaluation Endocervical component present Scant cellularity 03/05/2024 11:44 AM CDT [facility] [employer] LABORATORY-C ENTRAL LABORATORY Date of LMP 12/18/2023 03/05/2024 11:44 AM CDT [facility] [employer] LABORATORY-C ENTRAL LABORATORY Last Pap Date N/A 03/05/2024 11:44 AM CDT [facility] Last Pap Result First Pap/Unknown 11:44 AM CDT [facility] EN[facility]AL LAB[facility] Abnormal Pap or [place] Bx in last 5 years No 03/05/2024 11:44 AM CDT [facility] ENTRAL LABORATORY Menstrual Status Irregular Periods 03/05/2024 11:44 AM CDT [facility] ENTRAL LABORATORY [place] Bx Done Today No 03/05/2024 11:44 AM CDT [facility] ENTRAL LABORATORY Additional Information None given 03/05/2024 11:44 AM CDT [facility] [employer] [facility] ENTRAL LABORATORY Comment: Cytology is screened at [facility], Central Laboratory - [address] [address] and [facility] Laboratory - [address] [place] [address] and [facility] - [address] [place] [address] Interpreted at [facility], Central Laboratory - [address] [address] Automated Review Successful 03/05/2024 11:44 AM CDT [facility] ENTRAL LABORATORY Comment:Specimen processed s uccessfully by automated solar project coordination specialist device, ThinPrep Imaging System, [employer] Note The pap test is a screening technique, not a diagnostic procedure. It is used primarily to screen for squamous cancers and precursor lesions. Published studies have shown that it is subject to both false negative and false positive results. The pap test should not be used as the sole means to diagnose or exclude pre-malignant and malignant lesions. 03/05/2024 11:44 AM CDT [facility] [employer] LABORATORY-C ENTRAL LABORATORY Other (Cervical) Non-Blood / Unknown 02/23/2024 8:43 AM CDT 02/23/2024 9:17 AM CDT Nataliia Chavis DO PATHOLOGY/CYTOLOGY Final Resu lt [facility] LABORATORY-CENTRAL LABORATORY [address] [place] [address], [place] from Last 3 Months or Most Recently Relevant to Health Maintenance Insurance SHARED SERVICES [facility] SHARED SERVICES Care Teams Bag Machine Set Up Operator Relationship Specialty Start Date End Date Nataliia Chavis DO [address] [place], [place] [id number] PCP - General Family Practice 08/19/22
[2024-11-19 08:42] VITALS: BP 119/80; PULSE 82; RESP 16; TEMP 36.7; O2SAT 100; BMI 24.4
[2024-11-19 08:57] LABS: Appearance Urine Slightly Cloudy (Clear); Bilirubin Urine Negative (Negative); Blood Urine 2+ (Negative); Color Urine Yellow (Yellow); Glucose Urine Negative (Negative); Ketones Urine Negative (Negative); Leukocyte Esterase Urine Negative (Negative); Nitrite Urine Negative (Negative); Protein Urine 3+ (Negative); Specific Gravity Urine 1.025 (1.000-1.030); Urobilinogen Urine 0.2 (0.2-1.0)
--- NOTE | 2024-11-19 09:00 | ED.PREGNANCY ---
HPI - General Time Seen by Provider: 09:00 Date Seen: 11/19/24 Chief complaint: Urogenital Problems, Female Stated complaint: burning with urination () Time Seen by Provider: 11/19/24 08:48 Source: patient and RN notes reviewed Mode of arrival: ambulatory Limitations: no limitations History of Present Illness HPI Narrative: This 23-year-old female is coming in with dysuria since last night. She has had urgency symptoms, felt that times like she might have incontinence but has not happened. She notes about a week ago she was feeling more urgency but no dysuria. She has had no fevers, no nausea or vomiting. She is feeling a little left flank pain now. She notes about a month ago they may be thought she might of had a kidney stone. She did not have any imaging or further evaluation for this. She is currently about 28 weeks , is feeling the baby move, no contractions, no abnormal vaginal discharge. She sees Dr. Loving at [facility] for OB. Related Data Home Medications ?Medication ?Instructions ?Recorded ?Confirmed doxylamine 10 mg-pyridoxine (vit tab PO 11/19/24 B6) 10 mg tablet,delayed release ferrous sulfate 324 mg (65 mg 324 mg PO Q1D 11/19/24 11/19/24 iron) tablet,delayed release vit no.95-ferrous 1 tab PO DAILY 11/19/24 11/19/24 fumarate 28 mg-folic acid 800 mcg tablet () Allergies Allergy/AdvReac Type Severity Reaction Status Date / Time No Known Drug Allergies Allergy Verified 11/19/24 08:46 Review of Systems Narrative: As per HPI. PFSH PFS Social History Smoking Status: Never smoker How often do you have a drink containing alcohol: never AUDIT-C Alcohol total score: 0 Non-prescribed substance use: denies use Exam Const: Vital Signs, click to edit/add: Vital Signs - 24 hr 11/19/24 08:42 11/19/24 10:44 11/19/24 12:45 Temperature 98.1 F Pulse Rate 77 68 Pulse Rate [Pulse Oximeter] 82 Respiratory Rate 16 16 12 Blood Pressure 119/80 106/74 Blood Pressure [Ri ght Upper Arm] 119/80 Pulse Oximetry 100 100 99 Oxygen Delivery Me thod Room Air This 23-year-old female is alert, interactive, no apparent distress. Ambulatory into the ED of her own accord. She is afebrile. Sclera clear, symmetric facial function, speech is normal. Lungs are clear, good air entry, no wheezing or crackles, no tachypnea, no accessory muscle use. CV regular rate and rhythm, no murmur, normal S1-S2, no S3-S4. No CVA tenderness. Abdomen is gravid, uterus is nontender. She has no abdominal tenderness on examination. Documenting provider has reviewed patient's vital signs: yes Course Course ED Course: Nursing staff appropriately collected urinalysis on arrival. There are bacteria, some microscopic hematuria. Negative nitrite, negative leukocyte esterase. There are only 0-2 white blood cells, few squamous epithelial cells. There certainly could be infection but do need to consider kidney stones. This urine will obviously be cultured. Will initiate an IV, start with some IV Rocephin. Will look with ultrasound to look at the urinary system. Will confirm top tones as well while here. Reevaluation(s) Time of Reevaluation #1: 10:13 Reevaluation #1: heart tones 130s. Time of Reevaluation #2: 10:33 Reevaluation #2: Have reviewed ultrasound report with patient. She notes the pain on her left side is intensifying. She took 1 500 mg Tylenol about 7:30 a.m. this morning. Will give her 1000 mg oral Tylenol now. If that is not helping with her pain, will move to some narcotic coverage. She is in agreement with this plan. Have paged OB on-call through [facility] [place]. Time of Reevaluation #3: 13:47 Reevaluation #3: Patient was requesting more Tylenol, reviewed with her that she is at her dosing maximum for the time being. She is declining narcotics at this point, she is getting some back massage which seems to be helping some of her symptoms. She will let me know if she changes her mind. We are still awaiting bed placement at [facility]. Consultations Consultation #1: Did speak with Dr. Stover from [facility] whom is on for OB call. We did review case, she requests that I talked to Urology which is certainly appropriate. Reviewed with her that typically urology will not talk to us directly any longer out of the ED. I will try to page Urology. I will keep her updated. Did subsequently ask for urology to be paged the [facility], they were told that Urology will not consult with us. They will be paging the hospitalist. 11:03 a.m.: Did speak with hospitalist Dr. Sierra. He has asked that we talked to OB as well, they will be paging Dr. Varghese and I will update OB on this patient. There are no emergent obstetrical issues at this time. Patient need urology for potential/probable stenting. I am unable to talk to Urology, they will be consulted once patient is up there. Will discuss with this patient whether she prefers ambulance versus private vehicle for transfer. 11:54 a.m.: Did speak with Dr. Jackson perinatology from [facility]. Did update him of patient's situation, no concerning obstetrical complication at this time. Patient is not presumably infected but we have covered with Rocephin at this time. We are waiting urology consultation which will have to happen once she is at the facility. Time: 10:37 Vital Signs Vital signs: Initial Vital Signs Temperature 98.1 F 11/19/24 08:42 Temperature Source Temporal Artery Scan 11/19/24 08:42 Pulse Rate 82 11/19/24 08:42 Respiratory Rate 16 11/19/24 08:42 Blood Pressure 119/80 11/19/24 08:42 Blood Pressure Mean 93 11/19/24 08:42 Blood Pressure Position Sitting 11/19/24 08:42 Pulse Oximetry 100 11/19/24 08:42 Oxygen Delivery Method Room Air 11/19/24 08:42 Vital Signs Temperature 98.1 F 11/19/24 08:42 Pulse Rate 82 11/19/24 08:42 Respiratory Rate 16 11/19/24 08:42 Blood Pressure 119/80 11/19/24 08:42 Pulse Oximetry 100 11/19/24 08:42 Oxygen Delivery Method Room Air 11/19/24 08:42 Temperature 98.1 F 11/19/24 08:42 Pulse Rate 68 11/19/24 12:45 Respiratory Rate 12 11/19/24 12:45 Blood Pressure 106/74 11/19/24 12:45 Pulse Oximetry 99 11/19/24 12:45 Oxygen Delivery Method Room Air 11/19/24 08:42 Medications Administered Medications: Discontinued Medications Generic Name Dose Route Start Last Admin Trade Name Freq PRN Reason Stop Dose Admin Acetaminophen 1,000 mg 11/19/24 10:34 11/19/24 10:42 Acetaminophen 500 Mg Tablet PO 11/19/24 10:35 1,000 mg ONCE ONE Administration Ceftriaxone Sodium 1 gm/ 100 mls @ 200 mls/hr 11/19/24 09:33 11/19/24 10:20 Sodium Chloride IVPB 11/19/24 09:34 Infused ONCE ONE Infusion MDM - OB/Uterine Contractions Lab Data Attestation: I reviewed the patient's lab results. Labs: Lab Results 11/19/24 11/19/24 Range/Units 08:40 09:30 WBC 9.97 (4.50-11.00) K/uL RBC 3.60 L (4.00-5.20) m/uL Hgb 11.3 L (12.0-16.0) gm/dL Hct 33.1 (33.0-51.0) % MCV 92 (80-100) fL MCH 31 (26-34) pg MCHC 34 (32-36) gm/dL RDW Coeff of Rufino 13.1 (11.5-15.5) % Plt Count 135 L (140-440) K/uL Neut % (Auto) 74.2 H (42.0-72.0) % Lymph % (Auto) 18.0 L (20-44) % [place] % (Auto) 5.0 (0.0-11.0) % Eos % (Auto) 0.6 (0.0-7.0) % Baso % (Auto) 0.2 (0.0-3.0) % Neut # (Auto) 7.40 H (1.7-7.0) K/uL Lymph # (Auto) 1.80 (0.90-2.90) K/uL [place] # (Auto) 0.50 (0.00-0.90) K/UL Eos # (Auto) 0.06 (0.00-0.50) K/uL Baso # (Auto) 0.02 (0.00-0.30) K/uL Abs Immat Gran (auto) 0.20 (0.00-0.30) K/uL Imm/Tot Granulo (auto) 2.0 % Sodium 136 (135-149) mmol/L Potassium 3.8 (3.6-5.1) mmol/L Chloride 105 (96-114) mmol/L Carbon Dioxide 24 (20-32) mmol/L Anion Gap 7 (7-15) mEq/L BUN 16 (5-24) mg/dL Creatinine 0.5 (0.5-1.5) mg/dL Estimated Creat Clear 139.58 Estimated GFR 136 ml/min Glucose 92 (60-115) mg/dL Calcium 9.3 (8.4-10.6) mg/dL Urine Color Yellow (Yellow) Urine Appearance Slightly Cloudy A (Clear) Urine pH 7.0 (5.0-8.5) Ur Specific [place] 1.025 (1.000-1.030) Urine Protein 3+ A (Negative) Urine Glucose (UA) Negative (Negative) Urine Ketones Negative (Negative) Urine Blood 2+ A (Negative) Urine Nitrite Negative (Negative) Urine Bilirubin Negative (Negative) Urine Urobilinogen 0.2 (0.2-1.0) Ur Leukocyte Esterase Negative (Negative) Urine RBC 10-25 A (0-2) Urine WBC 0-2 (0-5) Ur Squamous Epith Cells Few (None-Few) Urine Bacteria Moderate A (None) Imaging Data US - abdomen: Attestation: I have reviewed the pertinent imaging results. Radiologist's impression: Patient: RONY ARTEAGA Facility:?[facility] Patient ID:?[id number] Site Patient ID:?[id number]. Site :?[id number] Study:?US-Abdomen Bilateral RENAL AND BLADDER-11/19/2024 10:12:39 AM Ordering Physician:Jamee Patel Final Report: Indication: UTI and flank pain. Twenty-eight weeks Technique: Sonography of the kidneys and bladder was performed. Imaging was provided by grayscale. Color Doppler was also performed. Comparison: None Findings: Right kidney: 11.1 x 4.4 x 4.9 centimeters. Cortex 1.5 centimeters. These measurements are within normal limits. No hydronephrosis, calculus or mass. Left kidney: 14.7 x 5.6 x 6.2 centimeters. Cortex 2 centimeters. These measurements are normal. There is moderate left hydronephrosis. No mass. Left hydroureter is also noted. A proximal stone is noted measuring 5 millimeters and a distal stone near the UVJ is identified measuring 6-7 millimeters which is likely the primary cause of the hydronephrosis and hydroureter. In the bladder, no left ureteral jet was observed. A right ureteral jet was observed Impression: 1. Left hydronephrosis and left hydroureter. This is moderate. There are 2 stones identified. A 5 millimeter stone proximally which is not obstructive in a 6-7 millimeter stone at the left ureterovesical junction which is likely the cause of the obstruction. 2. The right kidney appears normal. 3. In the bladder, a right ureteral jet was observed. There is no left ureteral jet. Dictated by Michi Ugalde MD @ 11/19/2024 10:22:00 AM (Electronic Signature) Discharge Plan Discharge Clinical Impression: Renal colic on left side, Hydronephrosis with renal and ureteral calculus obstruction Patient Disposition: Xfer [facility] Discharge Location: [facility] Condition: Stable Additional Instructions: Your room at [facility] is [place] [address]. Address: [address] [place] [address] Drop off at Door #1 (by [employer]) Park at [address] and either cross street or take skyway (takes longer). Go Past [facility] to [facility]. Third Floor, [place] [address] is your unit. Nurse phone number: [phone] Visiting hours end at 8pm. Prescriptions: No Action doxylamine-pyridoxine (vit B6) 10-10 mg tablet,delayed release (DR/EC) PO ferrous sulfate 324 mg (65 mg iron) tablet,delayed release (DR/EC) 324 mg PO Q1D PNV cmb#95-ferrous fumarate-FA [] 28 mg iron- 800 mcg tablet 1 tab PO DAILY Stand Alone Forms: Winning P[employer] Info Instructions
[2024-11-19 09:11] LABS: Bacteria Urine Moderate; Squamous Epithelial Cell Urine Few (None-Few); WBC Urine 0-2 (0-5)
--- NOTE | 2024-11-19 09:25 | CRLHL7_ITS ---
For Patients: As a result of the Century Cures Act, medical imaging exams and procedure reports are released immediately into your electronic medical record. You may view this report before your referring provider. If you have questions, please contact your health care provider. Indication: UTI and flank pain. Twenty-eight weeks Technique: Sonography of the kidneys and bladder was performed. Imaging was provided by grayscale. Color Doppler was also performed. Comparison: None Findings: Right kidney: 11.1 x 4.4 x 4.9 centimeters. Cortex 1.5 centimeters. These measurements are within normal limits. No hydronephrosis, calculus or mass. Left kidney: 14.7 x 5.6 x 6.2 centimeters. Cortex 2 centimeters. These measurements are normal. There is moderate left hydronephrosis. No mass. Left hydroureter is also noted. A proximal stone is noted measuring 5 millimeters and a distal stone near the UVJ is identified measuring 6-7 millimeters which is likely the primary cause of the hydronephrosis and hydroureter. In the bladder, no left ureteral jet was observed. A right ureteral jet was observed Impression: 1. Left hydronephrosis and left hydroureter. This is moderate. There are 2 stones identified. A 5 millimeter stone proximally which is not obstructive in a 6-7 millimeter stone at the left ureterovesical junction which is likely the cause of the obstruction. 2. The right kidney appears normal. 3. In the bladder, a right ureteral jet was observed. There is no left ureteral jet. Dictated by Michi Uglade MD @ 11/19/2024 10:22:00 AM (Electronically Signed)
[2024-11-19 09:40] LABS: Basophils Absolute Auto 0.02 K/uL (0.00-0.30); Basophils Percent Auto 0.2 % (0.0-3.0); Eosinophils Absolute Auto 0.06 K/uL (0.00-0.50); Eosinophils Percent Auto 0.6 % (0.0-7.0); Hematocrit 33.1 % (33.0-51.0); Hemoglobin* 11.3 gm/dL (12.0-16.0); Mean Corpuscular HGB Conc 34 gm/dL (32-36); Mean Corpuscular Hemoglobin 31 pg (26-34); Mean Corpuscular Volume 92 fL (80-100); Neutrophils Percent Auto 74.2 % (42.0-72.0); Platelet Count* 135 K/uL (140-440); RDW Coefficient of Variation % 13.1 % (11.5-15.5); White Blood Count* 9.97 K/uL (4.50-11.00)
[2024-11-19] MEDS: cefTRIAXone 1 GM in 0.9 % SODIUM CHLORIDE Mini-bag 100 ML IVPB (09:41)
--- OUTSIDE RECORDS SUMMARY | 2024-11-19 09:43 | XMS_ITS | Clinical Summary ---
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 Name Role Phone NimaSir farrellfelipe Sanchez DO Primary Care Provider [phone] Allergies Active Allergy Reactions Criticality Noted Date Comments Milk Containing Products (Dairy) Headache 06/10/2024 Petrolatum,White *Unknown 09/27/2021 Lips peel, tongue turned white Medications vit 70-cvjf-tdsac-d bravo 27mg iron- 800 mcg-250 mg cap [...] Transfusion of blood product declined due to moravian reason 08/21/2024 06/14/2024 Overview (06/14/2024): Estimated Date [...] Department Care Team Description 11/19/2024 Nurse Triage [facility] Nurse Triage Pcp, No Questions 11/19/2024 Nurse [address] [address] Fani Loving, Dysuria 11/17/2024 3:15 PM CDT OB Encounter [address] [address] Fani Loivng, Care (28 weeks 2 days/Still having frequent urination without pain or burning, wondering if baby is head down) 11/17/2024 Travel 11/12/2024 2:15 PM CDT Office Visit [facility] [address] [place] [address] Teto Choudhury MD Urinary Problem (urgency to go to the bathroom/pain comes and goes ) 11/12/2024 Travel 11/12/[address] [address] Nataliia Chavis, DO Lab 11/11/[address] [address] Fani Loving, Questions (Possible Kidney stone or UTI. ) 11/11/2024 Telephone [facility] [address] [place] [address] Nataliia Chavis, Error-please disregard 10/27/2024 2:50 PM CDT Office Visit [facility] [address] [place] [address] Fani Loving, ER Follow up (Possible kidney stone, pain has mostly resolved, having mild back/side pain still.) 10/27/2024 Travel 10/24/2024 12:07 PM CDT - 10/24/2024 1:18 PM CDT Hospital Encounter [facility] [address] [place] [address] Marck Warren MD Discharge Disposition: Home Self Care 10/24/2024 Telephone [facility] [address] [facility] [place] [address] Fani Loving, FOLLOW UP APPOINTMENT 10/24/[address] [facility] [address] [place] [address] 10/24/2024 Travel 10/24/2024 Nurse Triage [facility] [address] [place] [address] Nataliia Chavis, Error-please disregard 10/20/2024 2:25 PM CDT OB Encounter [facility] [address] [place] [address] Fani Loving, Care (24w2d; GTT today; lingering cough sx from one week ago. Has taken some Coricidan as was advised earlier in ) 10/20/2024 Travel 10/06/2024 1:45 PM NIGHT FILLER Ancillary Procedure [facility] [address] [place] [address] 10/05/2024 Travel 09/20/2024 4:00 PM NIGHT FILLER Ancillary Procedure [facility] [address] [place] [address] 09/20/2024 3:15 PM NIGHT FILLER OB Encounter [facility] [address] [place] [address] Fani Loving, DO Care (20 weeks, still feeling tired, has not started iron supplement, just received in the mail. ) 09/19/2024 Travel 09/16/2024 Orders Only [facility] [address] [place] [address] [address] Fani Loving, DO <No scans attached> 09/14/2024 3:45 PM NIGHT FILLER Orders Only [facility] [address] [place] [address] Lab, [facility] 09/14/2024 Travel 09/09/2024 Travel 08/30/2024 Telephone [facility] [address] [place] [address] Fani Loving, DO Questions from Last 3 [...] on file Legal Sex Female 4:27 PM NIGHT FILLER Gender Identity Not on file Sexual Orientation Not on file Obstetrics History Para Term AB IAB SAB Ectopic Multiple Livin g Live Births 1 Date Outcome GA Total Labor Labor/2nd/3rd Weight Sex Type Anes PTL Laura A1 A5 Name Clin Current Summary Episode Dates Number of Fetuses Estimated Date of Delivery 06/10/2024 - Present (11/19/2024) 02/07/2025 (set by Belen Padlila RN Student on 06/10/2024 based on Last [...] neg per NIPT Declines blood products for moravian reasons Low ferritin, on PO iron Concerns [...] neg per NIPT Declines blood products for moravian reasons Low ferritin, on PO iron Concerns [...] neg as well Declines blood products for moravian reasons Low ferritin, on PO iron Concerns [...] Fani Loving DO .................... 09/20/2024 3:29 PM T FILLER Progress Notes - Orders Only - 09/16/2024 - GA:19w3d 09/16/2024 - 19w3d - Fani Loving DO Rx for PO iron sent to pharmacy for low ferritin. Fani Loving DO .................... 09/16/2024 2:28 PM T FILLER Progress Notes - OB Encounte r - 08/20/2024 - GA:15w4d 08/20/2024 - 15w4d - Fani Loving DO Patient is here for routine care at 15w5d -specific issues: Rh neg status Declines blood products for moravian reasons Concerns today: Doing relatively well. Has had some episodes of vaginal itching that improved with increased hydration, but now having increased urination. No fevers, abdominal pain, or significant changes in vaginal discharge. Declines UA and T/G/C today, but will reach out in the future if she becomes more symptomatic prior to our next appointment. Patient shares that she is Gnosticist and declines blood products. Would like to [...] Fani Loving DO .................... 08/21/2024 12:39 PM T FILLER Progress Notes - OB Encounte r - [...] HISTORY LMP:Patient's last menstrual period was 05/03/24. 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 [...] Take 1,000 mg by mouth once daily. ecbzbbb-vgudujterynmg-vewmxakg (Excedrin Migraine) 250-250-65 mg Take 1 Tablet [...] for a month or until clear vit 50-bycb-atkbn-dha 27mg iron- 800 mcg-250 mg cap Take [...] labor. 30 minutes spent in chart review, kzvk-ib-hijd with patient, and documentation on day of encounter. T FILLER Progress Notes - OB Encounte r - [...] of estimated date of delivery: No Thalassemia (Lithuanian, Maltese, Mediterranean, or background): MCV less than 80: No Neural tube defect (Meningomyelocele, Spina bifida, or Anencephaly): No Congenital heart defect: No Down syndrome: No Gustabo-Sachs (Ashkenazi Congregation, Cajun, Lithuanian South African): No Compa disease (Ashkenazi Congregation): No Familial dysautonomia (Ashkenazi Congregation): No Sickle cell disease or trait (): No Hemophilia or other blood disorders: No Muscular dystrophy: No Cystic fibrosis: No [place]'s chorea: No Intellectual disability and/or autism: No [...] Take 1,000 mg by mouth once daily. qtqcfpk-higoefqbtemfd-tzatembg (Excedrin Migraine) 250-250-65 mg Take 1 Tablet [...] for a month or until clear vit 76-oizj-pfjoe-dha 27mg iron- 800 mcg-250 mg cap Take [...] of Beginnings book and book inserts, discussed tjjm-ojp-djmmybd medications, and follow up. - Encouraged patient to call clinic at [phone] with any vaginal bleeding, fluid leaking from [...] Description 11/29/2024 3:15 PM CDT OB Encounter [facility] [address] [place] [place] [address] Fani Loving, [address] [place] [address] 12/15/2024 3:40 PM CDT OB Encounter [facility] [address] [place] [address] Fani Loving DO [address] [place] [address] 12/29/2024 3:15 PM CDT OB Encounter [facility] [address] [facility] [address] Fani Loving, DO [address] [facility] [address] 01/12/2025 3:40 PM CDT OB Encounter [facility] [address] [place] [address] Fani Loving, DO [address] [place] [address] 01/19/2025 2:25 PM CDT OB Encounter [facility] [address] [facility] [address] Fani Loving, DO [address] [place] [address] 01/26/2025 2:25 PM CDT OB Encounter [facility] [address] [place] [address] Fani Loving, DO [address] [place] [address] 02/02/2025 2:25 PM CDT OB Encounter [facility] [address] [place] [address] Fani Loving, DO [address] [facility] [address] Health Maintenance Due Date Last Done Comments [...] ANY TRI TA Routine 10/06/2024 2:10 PM NIGHT FILLER Encounter for care (HC) US OB BASIC ANATOMY SCREEN SINGLE TA Routine 09/20/2024 4:24 PM NIGHT FILLER Encounter for supervision of other normal , first trimester (HC) VITAMIN D 25 (DEFICIENCY) Routine 09/14/2024 3:43 PM NIGHT FILLER Vitamin D deficiency FERRITIN Routine 09/14/2024 3:43 PM NIGHT FILLER Low ferritin HEMOGLOBIN Routine 09/14/2024 3:43 PM NIGHT FILLER Low ferritin GC CHLAMYDIA TRACH PROBE Routine 06/10/2024 3:50 PM CDT Encounter for supervision of other normal , first trimester (HC) HIV 1/2 ANTIGEN/ANTIBODY FOURTH GENERATION W/RFL ([facility]) Routine 06/10/2024 3:44 PM CDT Encounter for supervision of other normal , first trimester (HC) ANTI HCV Routine 06/10/2024 3:44 PM CDT Encounter for supervision of other normal , first trimester (HC) STR[employer] TRADES WORKER THIN PREP PAP SCREEN IMAGED Routine 02/23/2024 8:43 AM CDT Screening for cervical cancer from Last 3 Months or Most Recently Relevant to Health Maintenance Results * (ABNORMAL) POCT Urinalysis Dipstick Only [[id number]] (11/12/2024 2:17 PM CDT) Only the most recent of2 resultswithin the time period is included. PH 7.0 5.0 - 8.0 [facility] SPECIFIC GRAVITY 1.020 1.001 - 1.035 [facility] GLUCOSE NEGATIVE NEGATIVE [facility] BILIRUBIN NEGATIVE NEGATIVE [facility] KETONES NEGATIVE NEGATIVE [facility] OCCULT BLOOD NEGATIVE NEGATIVE [facility] PROTEIN NEGATIVE NEGATIVE [facility] NITRITE NEGATIVE NEGATIVE [facility] LEUKOCYTE ESTERASE TRACE(A) NEGATIVE [facility] Urine URINE SPECIMEN / Unknown 11/12/2024 2:17 PM CDT 11/12/2024 2:17 PM CDT us Teto Choudhury MD URINE Final Result [facility] [address] [place] [address], [facility] [address] [place] [address] * URINALYSIS MICROSCOPIC [39814.1] - routine (11/12/2024 2:16 PM CDT) Only the most recent of2 resultswithin the time period is included. RBC 0-2 0-2, None Seen /HPF 11/12/2024 10:28 PM CDT [facility] WBC 0-2 0-2, 3-5, None Seen /HPF 11/12/2024 10:28 PM CDT [facility] BACTERIA None Seen None Seen, Rare, Few Bacteria/ HPF 11/12/2024 10:28 PM CDT [facility] EPITHELIAL CELLS None Seen None Seen, Few Epi/HPF 11/12/2024 10:28 PM CDT [facility] HYALINE CASTS 0-2 0-2, 3-5 /LPF 11/12/2024 10:28 PM CDT [facility] Urine URINE SPECIMEN / Unknown Non-Blood / Unknown 11/12/2024 2:16 PM CDT 11/12/2024 2:17 PM CDT Teto Choudhury MD URINE Final Result Performing Organization Address [facility] Co de Phone Number [facility] [address] [address], [place] * URINE CULTURE [18818.2] (11/12/2024 2:16 PM CDT) Only the most recent of3 resultswithin the time period is included. CULTURE <10,000 CFU/mL multiple organisms 11/14/2024 2:20 PM CDT [facility] Urine URINE SPECIMEN / Unknown Non-Blood / Unknown 11/12/2024 2:16 PM CDT 11/12/2024 2:17 PM CDT Teto Choudhury MD MICROBIOLOGY Final Result Performing Organization Address [facility] Co de Phone Number [facility] [address] [place] [address], [place] * (ABNORMAL) Urinalysis W Reflex Microscopic if Positive (10/24/2024 12:50 PM CDT) COLOR Yellow Yellow Color 10/24/2024 1:03 PM CDT [facility] CLARITY Slightly Cloudy(A) Clear Clarity 10/24/2024 1:03 PM CDT [facility] SPECIFIC GRAVITY,URINE 1.015 1.010, 1.015, 1.020, 1.025 10/24/2024 1:03 PM CDT [facility] PH,URINE >=9.0(A) 6.0, 7.0, 8.0, 5.5, 6.5, 7.5, 8.5 10/24/2024 1:03 PM CDT [facility] UROBILINOGEN, QUALITATIVE Normal Normal EU/dl 10/24/2024 1:03 PM CDT [facility] PROTEIN, URINE 30(A) Negative mg/dL 10/24/2024 1:03 PM CDT [facility] GLUCOSE, URINE Negative Negative mg/dL 10/24/2024 1:03 PM CDT [facility] KETONES,URINE Negative Negative mg/dL 10/24/2024 1:03 PM CDT [facility] BILIRUBIN,URI NE Negative Negative 10/24/2024 1:03 PM CDT [facility] OCCULT BLOOD,URINE Moderate(A) Negative 10/24/2024 1:03 PM CDT [facility] NITRITE Negative Negative 10/24/2024 1:03 PM CDT [facility] LEUKOCYTE ESTERASE Moderate(A) Negative 10/24/2024 1:03 PM CDT [facility] Urine URINE SPECIMEN / Unknown Non-Blood / Unknown 10/24/2024 12:50 PM CDT 10/24/2024 1:00 PM CDT us Marck Warren MD URINE Final Resu lt [facility] [address] [place] [address] * TREPONEMA PALLIDUM (10/20/2024 2:39 PM CDT) TREPONEMA PALLIDUM Non-Reacti ve Non-Reacti ve 10/20/2024 11:46 PM CDT [facility] Blood BLOOD SPECIMEN / Unknown [facility] / Unknown 10/20/2024 2:39 PM CDT 10/20/2024 2:39 PM CDT us Fani Loving DO SEND OUTS Final Resu lt [facility] [address] [place] [address], * HEMOGLOBIN (10/20/2024 2:39 PM CDT) Only the most recent of2 resultswithin the time period is included. HEMOGLOBIN 12.0 11.7 - 15.5 g/dL [facility] Blood BLOOD SPECIMEN / Unknown 10/20/2024 2:39 PM CDT 10/20/2024 2:40 PM CDT Fani Loving DO HEMATOLOGY Final Resu lt Performing Organization Address City/[facility]/ZIP Co de Phone Number [facility] [address] [place] [address], [place] [phone] [facility] [address] [place] [address] * GLUCOSE TOLERANCE, GESTATIONAL SCREEN 1H (10/20/2024 2:39 PM CDT) GLUCOSE, GESTATIONAL SCREEN (50G)-140 CUTOFF 77 <140 mg/dL [facility] Blood BLOOD SPECIMEN / Unknown 10/20/2024 2:39 PM CDT 10/20/2024 2:40 PM CDT Fani Loving DO CHEMISTRY Final Resu lt Performing Organization Address [facility] Co de Phone Number [facility] [address] [place] [address], [place] [phone] [facility] [address] [place] [address] * US OB LIMITED ANY TRI TA (10/06/2024 2:10 PM NIGHT FILLER) Anatomical Region Laterality Modality , 2or 3 TRIMESTER, 1ST TRIMESTER Ultrasound 10/07/2024 7:09 AM NIGHT FILLER Impressions 10/07/2024 7:09 AM NIGHT FILLER Normal face. Dictated by Rex Avila MD @ 10/07/2024 7:09:05 AM (Electronically Signed) Narrative 10/07/2024 7:09 AM NIGHT FILLER For Patients: As a result of the [...] ANATOMY SCREEN SINGLE TA (09/20/2024 4:24 PM NIGHT FILLER) Anatomical Region Laterality Modality , 2or 3 TRIMESTER Ultrasound 09/21/2024 7:25 AM NIGHT FILLER Impressions 09/21/2024 7:25 AM NIGHT FILLER Concordance of clinical and sonographic dating. Incomplete visualization of the face. Remainder of the anatomic survey normal. Short-term follow-up recommended. Dictated by Rex Avila MD @ 09/21/2024 7:25:38 AM (Electronically Signed) Narrative 09/21/2024 7:25 AM NIGHT FILLER For Patients: As a result of the [...] four extremities appear normal. Procedure Note Rex Avlia MD - 09/21/2024 For Patients: As a [...] VITAMIN D 25 (DEFICIENCY) (09/14/2024 3:43 PM NIGHT FILLER) VITAMIN D,25-OH,TOTAL,IA 39 30 - 100 ng/mL [facility] Comment: Vitamin D Status 25-OH Vitamin D: Deficiency: <20 ng/mL Insufficiency: 20 - 29 ng/mL Optimal: > or = 30 ng/mL For 25-OH Vitamin D testing on patients on D2-supplementation and patients for whom quantitation of D2 and D3 fractions is required, the Quest[facility]ure[facility](TM) 25-OH VIT D, (D2,D3), LC/MS/MS is recommended: order code 18197 (patients >2yrs). See Note 1 Note 1 For additional information, please refer to http://education.RunRev/faq/CBJ142 (This link is being provided for informational/ educational purposes only.) Blood BLOOD SPECIMEN / Unknown 09/14/2024 3:43 PM NIGHT FILLER 09/14/2024 3:44 PM NIGHT FILLER Narrative [facility] - 09/15/2024 4:33 AM NIGHT FILLER FASTING:NO FASTING: NO us Fani Loving DO SEND OUTS Final Resu lt [facility] [address] [place] [address], [place] [phone] [facility] [address] [place] [address] * FERRITIN (09/14/2024 3:43 PM NIGHT FILLER) FERRITIN 17 16 - 154 ng/mL [facility] Blood BLOOD SPECIMEN / Unknown 09/14/2024 3:43 PM NIGHT FILLER 09/14/2024 3:44 PM NIGHT FILLER Narrative [facility] - 09/15/2024 4:33 AM NIGHT FILLER FASTING:NO FASTING: NO us Fani oLving DO CHEMISTRY Final Resu lt [facility] [address] [facility] [address], [place] [phone] [facility] [address] [place] [address] * STRUCTURAL STEEL TRADES WORKER PROBE - GC CHLAMYDIA DNA PCR [[id number]] (06/10/2024 3:50 PM CDT) CHLAMYDIA PROBE Negative 2:54 PM CDT [facility] N GONORRHOEAE PROBE Negative 06/11/2024 2:54 PM CDT [facility] Other URINE SPECIMEN / Unknown Non-Blood / Unknown 06/10/2024 3:50 PM CDT 06/10/2024 3:50 PM CDT Fani Loving DO MICROBIOLOGY Final Resu lt [facility] [address] [place] [address], * HIV 1/2 ANTIGEN/ANTIBODY FOURTH GENERATION W/RFL ([facility]) (06/10/2024 3:44 PM CDT) Pathologist [facility] HIV AG/AB, 4TH GEN NON-REACT RHONDA NON-REACT RHONDA [facility] Comment: HIV-1 antigen and HIV-1/HIV-2 antibodies [...] purpose. For additional information please refer to http://education.Payveris.Manyeta/faq/HVW207 (This link is being provided for informational/ educational purposes only.) The performance of this assay has not been clinically validated in patients less than 2 years old. Blood BLOOD SPECIMEN / Unknown 06/10/2024 3:44 PM CDT 06/10/2024 3:45 PM CDT Fani Sherrie Fabienne DO SEND OUTS Final Resu lt Performing Organization Address [facility]/ZIP Co de Phone Number [facility] [address] [place] [address], [facility] [address] [place] [address] * ANTI HCV (06/10/2024 3:44 PM CDT) HEPATITIS C ANTIBODY NON-REACTI VE NON-REACT RHONDA [facility] Comment: HCV antibody was non-reactive. There is no laboratory evidence of HCV infection. In most cases, no further action is required. However, if recent HCV exposure is suspected, a test for HCV RNA (test code 38754) is suggested. For additional information please refer to http://education.NextHop Technologies/faq/XYK75w0 (This link is being provided for informational/ educational purposes only.) Blood BLOOD SPECIMEN / Unknown 06/10/2024 3:44 PM CDT 06/10/2024 3:45 PM CDT Fani Loving DO SEND OUTS Final Resu lt Performing Organization Address [facility] Co de Phone Number [facility] [address] [place] [address], [place] [phone] [facility] [address] [place] [address] * STRUCTURAL 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 TRADES 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 THIN PREP PAP SCREEN IMAGED [[id number]] (02/23/2024 8:43 AM CDT) Case Report Gynecologic Cytology Report Case: [id number] Authorizing Provider: Nataliia Chavis DO Collected: 02/23/2024 0843 Ordering Location: [facility] Received: 02/23/2024 0917 Clinic First Screen: Shruthi Coleman Specimen: STRUCTURAL STEEL TRADES WORKER ThinPrep Vial Screening, Cervical 03/05/2024 11:44 AM CDT [facility]C ENTRAL LABORATORY INTERPRETATION/ RESULT NEGATIVE FOR INTRAEPITHELIAL LESION OR MALIGNANCY (NIL) (none) 03/05/2024 11:44 AM CDT [facility] ENTRAL LABORATORY at 1144 CDT SPECIMEN ADEQUACY Satisfactory for evaluation Endocervical component present Scant cellularity 03/05/2024 11:44 AM CDT [facility] LAB[facility]-C ENTRAL LABORATORY Date of LMP 12/18/2023 03/05/2024 11:44 AM CDT [facility] LAB[facility]-C ENTRAL LABORATORY Last Pap Date N/A 03/05/2024 11:44 AM CDT [facility] Last Pap Result First Pap/Unknown 11:44 AM CDT [facility] Abnormal Pap or Sullivan Bx in last 5 years No 03/05/2024 11:44 AM CDT [facility] Menstrual Status Irregular Periods 03/05/2024 11:44 AM CDT [facility] Sullivan Bx Done Today No 03/05/2024 11:44 AM CDT [facility] EN[facility] LAB[facility] Additional Information None given 03/05/2024 11:44 AM CDT [facility] ENTRAL LAB[facility]ATORY Comment: Cytology is screened at [facility], Central Laboratory - [address] [address] and [facility] Laboratory - [address] [place] [address] and [facility] - [address] [place] [address] Interpreted at [facility], Central Laboratory - [address] [address] Automated Review Successful 03/05/2024 11:44 AM CDT [facility] ENTRAL LAB[facility]ATORY Comment:Specimen processed s uccessfully by automated tank car repairer device, ThinPrep Imaging System, [employer] Note The pap test is a [...] and malignant lesions. 03/05/2024 11:44 AM CDT [facility] LABORATORY-C ENTRAL LABORATORY Other (Cervical) Non-Blood / Unknown 02/23/2024 8:43 AM CDT 02/23/2024 9:17 AM CDT Nataliia Chavis DO PATHOLOGY/CYTOLOGY Final Resu lt [facility]-CENTRAL LABORATORY [address] [place] [address], [place] from Last 3 Months or Most Recently Relevant to Health Maintenance Insurance SHARED SERVICES [facility] SHARED SERVICES Care Teams Fiber Glass Worker Relationship Specialty Start Date End Date Nataliia Chavis DO [address] [place], [place] [id number] PCP - General Family Practice 08/19/22
[2024-11-19 09:47] LABS: Slide Review Reflex No
[2024-11-19 09:53] LABS: Chloride* 105 mmol/L (96-114); Potassium* 3.8 mmol/L (3.6-5.1); Sodium* 136 mmol/L (135-149)
[2024-11-19 09:56] LABS: Anion Gap 7 mEq/L (7-15); Blood Urea Nitrogen* 16 mg/dL (5-24); Calcium* 9.3 mg/dL (8.4-10.6); Carbon Dioxide* 24 mmol/L (20-32); Creatinine* 0.5 mg/dL (0.5-1.5); Est. Creatinine Clearance* 139.58; Estimated Glomerular Filt Rate 136 ml/min; Glucose* 92 mg/dL (60-115)
[2024-11-19] MEDS: ACETAMINOPHEN 500 MG TABLET 1000 MG PO (10:42)
[2024-11-19 10:44] VITALS: BP 119/80; PULSE 77; RESP 16; O2SAT 100
[2024-11-19 12:45] VITALS: BP 106/74; PULSE 68; RESP 12; O2SAT 99
== END 2024-11-19 14:18 | disposition short-term general hospital (02) ==
PROVIDERS: Emergency Provider Family Medicine; PCP Family Medicine
DX: N23 Unspecified renal colic (principal); N13.2 Hydronephrosis with renal and ureteral calculous obstruction; Z3A.28 28 weeks gestation of pregnancy
CPT/HCPCS: 36415; 76770; 80048; 81001; 85025; 87086; 96365; 99285; A9270; J0696

== ENCOUNTER 2025-02-09 02:35 | Inpatient (IN) | payer OTHER, SELFPAY ==
[2025-02-09] VITALS (91 sets, daily range): BP systolic 90–167; BP diastolic 51–116; PULSE 51–150; RESP 16–20; TEMP 36.5–38.6; O2SAT 93–100; BMI 27.6
[2025-02-09 01:45] LABS: Amnisure Rom* Negative
--- OUTSIDE RECORDS SUMMARY | 2025-02-09 01:52 | XMS_ITS | Continuity of Care Document ---
Author Organization [place] [facility] Address [address] [place] [address] Assessment Encounter Date Assessment Date Assessment LastModified by Organization Details LastModified Time 01/31/2025 01/31/2025 ASSESSMENT: Patient is a good candidate for [...] should not hesitate to contact our office. ecram Not available 01/31/2025 14:57:52 Plan of Treatment Reminders Order Date Submit [...] Organization Details Recorded Time Thoracic segmental dysfunction 689761938 Active 2024 Denis Bedolla DC [address], [place], [address], [place] [facility] 18:44:22 Low back pain 463121429 Active 2024 Denis Bedolla [place] [address], [place], [address], [place] [facility] 5 18:44:22 Lumbar segmental dysfunction 184999134 Active 2024 Denis Bedolla [place] [address], [place], [address], [place] [facility] 18:44:22 Somatic dysfunction of sacral spine 308490167 Active 2024 Denis Bedolla [place] [address], [place], [address], [place] [facility] 5 18:44:22 Thoracic spondylosis 407504737 Active 2024 Kingsley Macias DC [address] [place] [address], [place], [address], [place] [facility] 5 11:33:42 Pain in thoracic spine 762035035 Active 2024 Kingsley Macias DC [address] [place] [address], [place], [address], [place] [facility] 5 11:33:42 Muscle spasm of thoracic back 2133235587329 06 Active 2024 Kingsley Macias DC [address] [place] [address], [place], [address], [place] [facility] 5 11:33:42 Problem Notes None recorded. Procedures Surgical History Date Name Laterality Status Provider Name and Address Organization Details Recorded Time 5 75125: Spinal manipulation , 3 to 4 regions completed Kingsley Macias DC [address], [place], [place], [address], [place] [facility] 02/07/2025 12:01:36 5 [address]64: Spinal manipulation , 3 to 4 regions completed Kingsley Macias, FILI [address], [place], [address], [facility] 02/04/2025 09:38:51 5 [address]4946: Spinal manipulation , 3 to 4 regions completed Kingsley Dipesh Seferino [place] [address], [place], [address], [facility] 01/31/2025 14:57:52 5 45583: Spinal manipulation , 3 to 4 regions completed Kingsley Macias DC [address], [place], [address], [facility] 01/28/2025 09:40:11 5 33295: Spinal manipulation , 3 to 4 regions completed Kingsley Macias DC [address], [place], [address], [facility] 01/24/2025 12:10:02 5 54022: Spinal manipulation , 3 to 4 regions completed Kingsley Macias DC [address], [place], [address], [facility] 01/22/2025 20:11:53 5 37569: Spinal manipulation , 3 to 4 regions completed Kingsley Macias DC [address], [place], [address], [facility] 01/14/2025 11:32:36 5 65151: Spinal manipulation , 3 to 4 regions completed Denis Bedolla [place] [address], [place], [address], [facility] 08/30/2024 18:45:28 Imaging Results None recorded. Procedure [...] per 24hrs.* active Not Available Not Available Not Available clotrimazole 1 % vaginal cream INSERT 1 APPLICATORF UL (APPROXIMAT ESTHER 5 GRAMS) VAGINALLY AT BEDTIME FOR 7 DAYS active Not Available Not Available N ot Available tramadol 50 mg tablet TAKE 0.5-1 TABLETS (25MG-50MG) BY MOUTH EVERY 6 HOURS IF NEEDED FOR PAIN.ONLY USE WHEN PAIN IS SEVERE AND TYLENOL HAS REACHED MAX AMOUNT IN 24 HOURS.PLEAS E USE WITH CAUTION DURING . CALLED YOUR OB FOR FURTHER RECOMMENDAT IONS active Not Available Not Available No t Available tamsulosin 0.4 mg capsule TAKE 1 CAPSULE BY MOUTH ONCE DAILY AFTER A MEAL active Not Available Not Available No t Available cephalexin 500 mg capsule TAKE 1 CAPSULE BY MOUTH 4 TIMES DAILY FOR 3 DAYS active Not Available Not Available N ot Available doxylamine 10 mg-pyridoxin e (vit B6) 10 mg tablet,delay ed release TAKE 1 TABLET BY MOUTH TWICE DAILY NEEDED FOR NAUSEA AND VOMITING active Not Available Not Available No t Available ferrous sulfate 324 mg (65 mg iron) tablet,delay ed release TAKE 1 TABLET BY MOUTH EVERY OTHER DAY active Not Available Not Available No t [...] SNOMED-CT Code Diagnosis ICD10 Code Diagnosis Note [id number] Kingsley Macias DC [facility] [address] [facility] [place] [address] 01/14/2025 11:26:32 01/14/2025 12:21:44 Lumbar segmental dysfunction 991303770 M99.03 Low back pain 896192011 M54.50 Somatic dy sfunction of sacral spine 574235167 M99.04 Thoracic s egmental dysfunction 312248630 M99.02 Pain in th oracic spine 732898171 M54.6 Thoracic spondylosis 387 256776 M47.814 Muscle spa sm of thoracic back 6506018941 15257 M62.830 [id number] Kingsley Macias DC [facility] & [address] [facility] [place] [address] 01/21/2025 11:36:07 01/25/2025 17:06:57 Lumbar segmental dysfunction 815805248 M99.03 Low back pain 410122191 M54.50 Somatic dy sfunction of sacral spine 078624745 M99.04 Thoracic s egmental dysfunction 115628059 M99.02 Pain in th oracic spine 852926452 M54.6 Thoracic spondylosis 387 961875 M47.814 Muscle spa sm of thoracic back 1006825419 11832 M62.830 [id number] Kingsley Macias DC [facility] [address] [place] [address] 01/24/2025 11:32:47 01/25/2025 17:13:44 Lumbar segmental dysfunction 551535054 M99.03 Low back pain 233586835 M54.50 Somatic dy sfunction of sacral spine 021773432 M99.04 Thoracic s egmental dysfunction 088815861 M99.02 Pain in th oracic spine 737394627 M54.6 Thoracic spondylosis 387 802520 M47.814 Muscle spa sm of thoracic back 1818756556 28632 M62.830 [id number] Kingsley Macias DC [address] [place] [address] 01/28/2025 09:32:31 01/28/2025 10:19:23 Lumbar segmental dysfunction 617088848 M99.03 Low back pain 672115634 M54.50 Somatic dy sfunction of sacral spine 152185599 M99.04 Thoracic s egmental dysfunction 050798220 M99.02 Pain in th oracic spine 743054200 M54.6 Thoracic spondylosis 387 507138 M47.814 Muscle spa sm of thoracic back 1996813421 66873 M62.830 [id number] Kingsley Macias DC [facility] [address] [place] [address] 01/31/2025 11:36:58 01/31/2025 15:02:13 Lumbar segmental dysfunction 294694949 M99.03 Low back pain 064671525 M54.50 Somatic dy sfunction of sacral spine 331393996 M99.04 Thoracic s egmental dysfunction 695388534 M99.02 Pain in th oracic spine 986406642 M54.6 Thoracic spondylosis 387 168587 M47.814 Muscle spa sm of thoracic back 5381420790 03216 M62.830 Health Concerns Section Related Observation LastModified by Organization Detai ls LastModified Time None Recorded Concern Status LastModified by Organization Details LastModified Time None Recorded Payers Encounter Date Sequence Insurance Name Policy Number Policy Fong Covered Member ID Fong Member ID Guarantor Name 01/31/2025 1 [employer] [id number] Theodore Ferro [id number] Angeles Ferro 01/31/2025 2 [employer] [id number] Singh Rao [id number] Angeles Ferro Notes Date Note Type Note Provider Name and Address Organization Details Recorded Time 01/31/2025 text/html HPI - Lumbar SpineReported bypatient.Location: bilateral Quality:aching Severity:not changing Timing:morning Aggravating Factors:standing Alleviating Factors:ice Patient presents for mid back pain. She was diagnosed with scoliosis 5 years ago. She is currently 17 weeks . Patient was seeing a chiropractor previously. Kingsley Macias DC [address] [place] [address], [place], [address], [facility] [place] [facility] 01/31/2025 14:58:39 OBGyn Episode No OBEpisode recorded.
--- OUTSIDE RECORDS SUMMARY | 2025-02-09 01:52 | XMS_ITS | Clinical Summary ---
Author Organization [facility] Address [address] [place] [id number] Care Team Providers Care Helmet Hat Sweatband Puncher Name Role Phone Nataliia Chavis DO Primary Care Provider [phone] Allergies Active Allergy Reactions Criticality Noted Date Comments Petrolatum,White *Unknown 09/27/2021 Lips peel, tongue turned white Medications vit 28-vjwh-xzcxf- dha 27mg iron- 800 mcg-250 mg cap Take by mouth. Activ e ferrous sulfate 325 mg delayed release tabletIndicati ons:Low ferritin Take one tablet by mouth every other day. 90 Tablet 1 5 Active doxylamine-pyr idoxine, vit B6, (Diclegis) 10-10 mg TbECIndication s:Nausea and vomiting in (HC) Take 1 Tablet by mouth 2 times daily if needed (nausea and vomiting). 60 Tablet 2 5 Active Breast Pump PurchaseIndica tions:Lactatin g mother (HC) Electric breast pump for home use. Gestational age at delivery: TBD weeks. Reason for need: lactating mother. Length of need: 99 months (lifetime use) 1 Each 5 Active acetaminophen 325 mg tabletIndicati ons:Kidney stone,28 weeks gestation of (HC) Take 2 Tablets (650 mg) by mouth every 4 hours if needed for Pain (For pain.). Max acetaminophen dose: 4000mg in 24 hrs. 5 Active traMADoL 50 mg tabletIndicati ons:Kidney stone Take 0.5-1 Tablets (25-50 mg) by mouth every 6 hours if needed for Pain. Only use when pain is severe and Tylenol has reached max amount in 24 hours. Please use with caution during . Called your OB for further recommendations. 10 Tablet 5 Active tamsulosin 0.4 mg capsuleIndicat ions:Left ureteral stone Take 1 Capsule (0.4 mg) by mouth once daily after a meal. 14 Capsule 1 5 Active Active Problems Problem Noted Date Diagnosed Date Kidney stone 11/19/2024 Transfusion of blood product declined due to rastafari reason 08/21/2024 06/14/2024 Overview (02/01/2025): Estimated Date of Delivery: 02/07/25 Patient's last menstrual period was 05/03/2024 (exact date). Maternal Rh neg status; blood type Rh neg per NIPT Declines blood products for rastafari reasons Low ferritin, on PO iron L ureteral stone, on PO tamsulosin Hx scoliosis (T10-11, 8 degrees and L2-3, 16 degrees) GBS: Vaginal/Rectal OB Strep B PCR Date Value Ref Range Status 01/19/2025 Negative Final 28wk labs: HEMOGLOBIN Date Value Ref Range Status 11/19/2024 11.0 (L) 12.0 - 16.0 g/dL Final HEMOGLOBIN Date Value Ref Range Status 01/19/2025 12.6 11.7 - 15.5 g/dL Final Last Tdap: 11/17/24 Last Flu vaccine: 2008 OB Labs: ABORH Date Value Ref Range [...] Pap smear for cervical cancer screening 03/05/20 24 Overview (03/05/2024): 02/2024 NIL Plan: PAP/HPV due 02/2027 Moderate episode of recurrent major depressive d isorder 10/15/2022 Generalized anxiety disorder 10/15/2022 Anxiety and depression 08/07/2018 Estimated Date of Delivery Comme nts Yes 02/07/2025 Based on last me nstrual period of 05/03/2024 (Exact Date) Encounters Date Type Department Care Team Description 02/08/2025 Travel 02/02/2025 2:25 PM CDT OB Encounter [facility] [address] [facility] [address] Fani Loving, DO Care (39w2d) 02/01/2025 Travel 01/26/2025 2:25 PM CDT OB Encounter [facility] [address] [place] [address] Fani Loving, DO Care (38+2) 01/25/2025 Travel 01/19/2025 2:25 PM CDT OB Encounter [facility] [address] [place] [address] Fani Loving, DO Care (37w2d ) 01/18/2025 Travel 01/12/2025 3:40 PM CDT OB Encounter [facility] [address] [place] [address] Fani Loving, DO Care (36 weeks 2 days) 01/12/2025 Travel 01/07/2025 Travel 12/30/2024 12:49 PM CDT - 12/30/2024 11:59 PM CDT Hospital Encounter [facility] [address] [place] [address] Fani Loving, DO Fundal height low for dates in third trimester (HC) 12/30/2024 Travel 12/29/2024 3:15 PM CDT OB Encounter [facility] [address] [place] [address] Fani Loving, DO Care (34 weeks 2 days;/would like to test kidneys due to prior stone that has not passed. also having some on/off vaginal itching.) 12/28/2024 Travel 12/15/2024 3:40 PM CDT OB Encounter [facility] [address] [place] [address] Fani Loving, DO Care (32weeks) 12/15/2024 Travel 11/29/2024 3:15 PM CDT OB Encounter [facility] [address] [place] [address] Fani Loving DO Care (30 weeks) 11/29/2024 Orders Only [facility] [address] [place] [address] Fani Loving, DO <No scans attached> 11/29/2024 Travel 11/24/2024 E-Cons[address] [facility] [address] [facility] [address] [place] [address] Maryan Johnson, PharmD 11/23/2024 Patient Outreach [facility] Care Management - Advanced Care Team [address] [place] [address] Libia Jules Medication Management (COMPREHENSIVE MEDICATION REVIEW - PROVIDER REFERRAL - not covered) 11/22/2024 11:15 AM CDT Office Visit [facility] [address] [place] [address] Fani Loving, Hospital F/U (ANW-kidney stones) 11/22/2024 Travel 11/19/2024 3:33 PM CDT - 11/20/2024 4:15 PM CDT Hospital Encounter [facility] [address] [place] [address] [facility] Of Francisco Zazueta MD Kidney stone (Primary Dx); 28 weeks gestation of (HC); Bacteriuria during (HC) Discharge Disposition: Home Self Care 11/19/2024 Nurse Triage [facility] Nurse Triage Pcp, No Questions 11/19/2024 Nurse Triage [facility] [address] [place] [address] Fani Loving, Dysuria 11/17/2024 3:15 PM CDT OB Encounter [facility] [address] [facility] [place] [address] Fani Loving DO Care (28 weeks 2 days/Still having frequent urination without pain or burning, wondering if baby is head down) 11/17/2024 Travel 11/12/2024 2:15 PM CDT Office Visit [facility] [address] [place] [address] Teto Choudhury MD Urinary Problem (urgency to go to the bathroom/pain comes and goes ) 11/12/2024 Travel 11/12/2024 Telephone [facility] [address] [place] [address] Nataliia Chavis, DO Lab 11/11/2024 Telephone [facility] [address] [place] [address] Fani Loving, Questions (Possible Kidney stone or UTI. 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 Gender Identity Not on file Sexual Orientation Not on file Obstetrics History Para Term AB IAB SAB Ectopic Multiple Livin g Live Births 1 Date Outcome GA Total Labor Labor/2nd/3rd Weight Sex Type Anes PTL Laura A1 A5 Name Clin Current Summary Episode Dates Number of Fetuses Estimated Date of Delivery 06/10/2024 - Present (02/09/2025) 02/07/2025 (set by Belen Padilla, TRE Student on 06/10/2024 based on Last Menstrual Period on 05/03/2024 (Exact Date)) Dating Summary Based On DEMARCUS GA Diff Last Menstrual Period on 05/03/2024 (Exact Date) 02/07/2025 Working Ultrasound on 07/02/2024 02/09/2025 -2d GA:8w2d Vitals Pregravid Weight Height TWG (As of 02/09/2025) Pregrav id BMI 1.565 m (5' 1.61) Date GA Fund Present FHR Mvmt BP Weight Edema Alb Glu Ket Dil/ Eff/Sta 5 24w6d Inpatient data not displayed here. See encounter summary. 5 28w5d Inpatient data not displayed here. See encounter summary. 5 34w3d Inpatient data not displayed here. See encounter summary. Notes Progress Notes - OB Encounte r - 02/02/2025 - GA:39w2d 02/02/2025 - 39w2d - Fani Loving DO Patient is here for routine care at 39w2d -specific issues: Maternal Rh neg status; blood type Rh neg per NIPT Declines blood products for rastafari reasons Low ferritin, on PO iron L ureteral stone, previously on PO tamsulosin Hx scoliosis (T10-11, 8 degrees and L2-3, 16 degrees) Concerns today: none. Has had some occasional cramping, but still no contractions. Trying to walk more to induced labor. No Contractions, bleeding, loss of fluid. No Headache, vision changes, edema, right upper quadrant pain. Baby is moving well. O: see flowsheet 1. care, first in third trimester (HC) (Primary) Discussed signs/symptoms of labor and when to call Reviewed preeclampsia symptoms Will discuss IOL (elective at 40w vs post-dates at 41 weeks) at our next visit in 1 week. Fani Loving DO .................... 02/02/2025 12:47 PM [facility] GA:38w2d 01/26/2025 - 38w2d - Fani Loving DO Patient is here for routine care at 38w2d -specific issues: Maternal Rh neg status; blood type Rh neg per NIPT Declines blood products for rastafari reasons Low ferritin, on PO iron L ureteral stone, on PO tamsulosin Hx scoliosis (T10-11, 8 degrees and L2-3, 16 degrees) Concerns today: none. Noticing some cramping, particularly at night, that feels similar to period cramps. Otherwise, no Contractions, bleeding, loss of fluid. No Headache, vision changes, edema, right upper quadrant pain. Baby is moving well. Discussed signs/symptoms of term labor and when to call Reviewed preeclampsia symptoms RTC in 1 week, sooner if concerns. Fani Loving DO .................... 01/26/2025 2:54 PM [facility] - GA:37w2d 01/19/2025 - 37w2d - Fani Loving DO Patient is here for routine care at 37w2d -specific issues: Maternal Rh neg status; blood type Rh neg per NIPT Declines blood products for rastafari reasons Low ferritin, on PO iron L ureteral stone, on PO tamsulosin Hx scoliosis (T10-11, 8 degrees and L2-3, 16 degrees) Concerns today: has noticed off and on RUQ pain since last night. No itching, nausea, or vomiting. Doesn't get worse or change with eating. Had headache last week that lasted for about 2 days but improved with meds. No vision changes or swelling. No Contractions, bleeding, loss of fluid. No longer having vaginal itching. Baby is moving well. 1. care, first in third trimester (HC) (Primary) Discussed signs/symptoms of labor and when to call Reviewed preeclampsia symptoms - VAGINAL/RECTAL OB STREP PCR; Future - CBC W PLT NO DIFF; Future - AST (SGOT); Future - ALT (SGPT); Future - CREATININE; Future - PROTEIN/CREAT RATIO,URINE; Future 2. RUQ pain Given RUQ pain, discussed eval with labs as below. Patient was agreeable. - CBC W PLT NO DIFF; Future - AST (SGOT); Future - ALT (SGPT); Future - CREATININE; Future - PROTEIN/CREAT RATIO,URINE; Future RTC in 1 week, sooner if concerns. Fani Loving DO .................... 01/19/2025 2:38 PM Progress Notes - OB Encounte r - 01/12/2025 - GA:36w2d 01/12/2025 - 36w2d - Fani Loving DO Patient is here for routine care at 36w2d -specific issues: Maternal Rh neg status; blood type Rh neg per NIPT Declines blood products for rastafari reasons Low ferritin, on PO iron L ureteral stone, on PO tamsulosin Hx scoliosis (T10-11, 8 degrees and L2-3, 16 degrees) Concerns today: has noticed some low back pain, different from kidney stone pain. Thinks it's -related. Has noticed some residual vaginal itching. Treated for vaginal yeast infection after our last visit 2 weeks ago, finished course last Friday. Still has occasional itching but better than it was. Has had a few episodes of period-like cramps, then would go away. This has been on and off throughout the last week. No Contractions, bleeding, loss of fluid. No Headache, vision changes, edema, right upper quadrant pain. Baby is moving well. Growth US at 34w due to low fundal height showed baby at 78%ile. O: See flowsheet A/P: 1. care, first in third trimester (HC) (Primary) Discussed signs/symptoms of labor and when to call Reviewed preeclampsia symptoms RTC in 1 week. Plan on GBS at that visit. 2. Vaginal itching Improved from prior, but still occasionally present. Plan to recheck at visit next week if still bothersome or sooner if needed based on worsening symptoms. Fani Loving DO .................... 01/12/2025 4:12 PM Progress Notes - OB Encounte r - 12/29/2024 - GA:34w2d 12/29/2024 - 34w2d - Fani Loving DO Patient is here for routine care at 34w2d -specific issues: Maternal Rh neg status; blood type Rh neg per NIPT Declines blood products for rastafari reasons Low ferritin, on PO iron L ureteral stone, on PO tamsulosin Hx scoliosis (T10-11, 8 degrees and L2-3, 16 degrees) Concerns today: noticing vaginal itching on and off. No discharge that she has noticed. Still has not passed kidney stone as far as she is aware. Has stopped straining urine as she has had no pain, not even needing to take Tylenol. Wonders if we should check kidney function today. Urinating normally, frequently. Urine is generally clear, no blood. Has had some mild cramp sensations that went away on their own. No contractions, bleeding, or loss of fluid. No Headache, vision changes, dizziness. Sometimes has swelling in ankles at the end of the day. Noticing swelling in fingers a little bit. Baby is moving well. Noticing worsening heartburn. Feels nauseous with this. Takes Tums and has been taking Unisom as well. O: See flowsheet A/P: 1. care, first in third trimester (HC) (Primary) Discussed signs/symptoms of labor and when to call Reviewed preeclampsia symptoms RTC in 2 weeks for routine OB visit. Will collect GBS swab at that time. 2. Calculus of kidney affecting in third trimester (HC) Noted; continuing to monitor for closely for changes 3. Vaginal itching Patient collected self-swab today - TRICHOMONAS, IMELDA, AND BACTERIAL VAGINOSIS BY BREANN; Future - TRICHOMONAS, IMELDA, AND BACTERIAL VAGINOSIS BY BREANN 4. Fundal height low for dates in third trimester (HC) Fundal height 31 today. Reviewed possible etiologies. Plan to obtain growth US to further evaluate as fundal height measurements have been inconsistent thus far, but generally on low side. - US OB FOLLOW UP ANY TRI SINGLE TA; Future Fani Loving DO .................... 12/29/2024 3:33 PM Progress Notes - OB Encounte r - 12/15/2024 - GA:32w2d 12/15/2024 - 32w2d - Fani Loving DO Patient is here for routine care at 32w2d -specific issues: Maternal Rh neg status; blood type Rh neg per NIPT Declines blood products for rastafari reasons Low ferritin, on PO iron L ureteral stone, on PO tamsulosin Hx scoliosis (T10-11, 8 degrees and L2-3, 16 degrees) Concerns today: feeling fatigued. Still has abdominal pain described as stretching on L side that did not improve with use of belly band. Worse on days when she is more active. Has not passed stone. Did have one day of light urethral blood noted, but nothing persistent. No pain. Hasn't even needed to take tylenol since her last visit. No Contractions, bleeding, loss of fluid No Headache, vision changes, edema, right upper quadrant pain. Baby is moving well 1. care, first in third trimester (HC) (Primary) Fetus in transverse position today with head to maternal R. Discussed possible referral for ECV discussion if this persists by 36, 37 weeks. Can try Spinning Babies techniques. Discussed signs/symptoms of labor and when to call Reviewed preeclampsia symptoms RTC in 2 weeks, sooner if concerns. Fani Loving DO .................... 12/15/2024 4:33 PM Progress Notes - OB Encounte r - 11/29/2024 - GA:30w0d 11/29/2024 - 30w0d - Fani Loving DO Patient is here for routine care at 30w0d -specific issues: Maternal Rh neg status; blood type Rh neg per NIPT Declines blood products for rastafari reasons Low ferritin, on PO iron L ureteral stone, on PO tamsulosin Hx scoliosis Concerns today: hasn't had pain from ureteral stone since our last visit. Took tamsulosin for a few days, then stopped. Now planning to restart. Hasn't needed tramadol or even Tylenol. Has had some left-sided abdominal pain that feels like stretching. Usually occurs earlier in the week, then resolves. No Contractions, bleeding, loss of fluid No Headache, vision changes, edema, right upper quadrant pain. Baby is moving well Labs today: F/up Hgb in setting of anemia and creatinine secondary to presence of ureteral stone. Recommended continuing PO iron at this point. If Hgb continues to decrease, would pursue IV iron. TDaP: 11/17/24 Discussed signs/symptoms of labor and when to call Reviewed preeclampsia symptoms Fani Loving DO .................... 11/29/2024 3:35 PM Progress Notes - Hospital En counter - 11/20/2024 - GA:28w5d 11/20/2024 - wd - Peggy Hart RN Discharge Note Data: Patient has been discharged home with a family/friend. Family/friend's name /mom at 1615 via wheelchair accompanied by Family. Action: Written discharge/follow-up instructions were provided to patient. Prescriptions were written and sent with patient. Belongings and medications from home sent with patient. Home equipment: none Patient is being discharged with the following new lines and drains: None. Is patient being discharged with a wound, dressing, or incision site? No. DISCHARGE CONTACT INFORMATION Phone number to reach the patient within the next 72 hours after discharge?: (not recorded) May staff leave a detailed message at this number? : (not recorded) Response: Patient verbalized understanding of discharge instructions, reason for discharge, and necessary follow-up appointments. 11/20/2024 - 28w5maxine - Andra Durbin PA UROLOGY PROGRESS NOTE SUBJECTIVE: Did well overnight. Started to have mild increase in pain now this morning. Peeing frequently, scantly bloody from time to time. Smaller voids. AVSS. Creatinine 0.43--pending OBJECTIVE: BP 109/58 (Cuff Size: Adult Regular) Pulse 73 Temp 98.3 F (36.8 C) Resp 16 LMP 05/03/2024 (Exact Date) SpO2 98% Intake/Output Summary (Last 24 hours) at 11/20/2024 1119 Last data filed at 11/20/2024 0600 Gross per 24 hour Intake 2110.42 ml Output 400 ml Net 1710.42 ml General appearance shows no deformaties and good grooming. EYES: No icterus, EOM intact. HEAD, EARS, NOSE, MOUTH, AND THROAT: Atraumatic, normocephalic. NECK: Supple. CARDIAC: Perfusing well. RESPIRATORY: Breathing unlabored, no signs of respiratory distress. ABDOMEN: gravid SKIN/HAIR/NAILS: No visible rashes. NEUROLOGIC: No focal deficits. PSYCHIATRIC: Speech: Normal; Mood: Normal; Affect: Normal. Recent Labs 11/12/24 1417 10/27/24 1532 10/24/24 1250 COLOR -- -- Yellow CLARITY -- -- Slightly Cloudy A SPECGRAV 1.020 < > 1.015 PHURINE 7.0 < > >=9.0 A UROBILINOGEN -- -- Normal PROTEINUA NEGATIVE < > 30 A < > = values in this interval not displayed. Recent Labs 11/12/24 1417 GLUCOSEUA NEGATIVE KETONESUA NEGATIVE BILIURINE NEGATIVE BLOODUA NEGATIVE NITRITE NEGATIVE LEUKOCYTE TRACE A No results found for: PSASCREEN, PSANUM, PSADIAGNOSTI, PSATOTALDIAG, PSASCRDIAGLC HEMOGLOBIN (g/dL) Date Value 11/19/2024 11.0 (L) CREATININE (mg/dL) Date Value 11/19/2024 0.43 (L) 11/19/2024 0.43 (L) ASSESSMENT/PLAN: 23 year old female, 28w5d gestation of , admitted with left renal colic/abdominal pain due to probable 7 mm left UVJ stone with associated hydronephrosis Will check creatinine now. As long as stable, no need for repeat imaging at this time. Has been getting antibiotics here. Urine culture was at [facility]. Continue to strain urine. Good hydration. Okay for diet. We discussed potential intervention again today. Ideally can hold off. If she were to experience severe pain, worsening hydronephrosis, worsening creatinine then may need to place PCN. Pain control per primary. Recommend follow up labs next week with PCP/OB. Addendum 1 pm Creatinine back, 0.45 Okay to discharge from urology standpoint. Andra Durbin PA-C [place] [facility] Page the travel accommodation inspector urologist for ANW patient questions. 11/20/2024 - 28w5d - Karla Baez RN Nursing Shift Care Plan Summary Note Pain/Comfort:denies pain ASSESSMENT FINDINGS/INTERVENTIONS/EVALUATION for Active Problems during this hospitalization: Active Problems: Kidney stone Assessment/Interventions: VSS on RA, no c/o n/v/d, NS running, monitoring done mother and fetus doing well, voiding wnl, still straining urine no stones found Progress:coping Goals/Barriers: Patient Goals for Next Shift: monitoring and pain mgt Discharge Plan/Barriers to Discharge:tbd Karla Baez RN .................... 11/20/2024 5:31 AM 11/19/2024 - - Belen Peterson RN Nursing Shift Care Plan Summary Note Pain/Comfort:3/4 Left flank pain. ASSESSMENT FINDINGS/INTERVENTIONS/EVALUATION for Active Problems during this hospitalization: Active Problems: Obstructing Kidney Stones, Left Flank Pain Assessment/Interventions: 28W4D , A&Ox4, VSS on RA, Active BS, Voiding clear yellow/straw urine - strained - no apparent stones/sediment. BP 107/59 (Cuff Size: Adult Regular) Pulse 76 Temp 98.3 F (36.8 C) Resp 20 LMP 05/03/2024 (Exact Date) SpO2 98% Progress:stable, able to make needs known Additional Nursing Focus Areas (include assessment, interventions and evaluation details as appropriate): IND, Nutrition: Reg diet, NPO @ Midnight, and Skin: See Flowsheet Goals/Barriers: Patient Goals for Next Shift: observation Discharge Plan/Barriers to Discharge:pending Belen Petreson RN .................... 11/19/2024 6:52 PM 11/19/2024 - - Kim Rubin PharmD Pharmacist Admission Medication History Prior to admission medications were reviewed with: Patient's [facility] Medication history interview completed: by phone Concerns about patient compliance: None Concerns about accuracy of the list: None Pertinent information and/or recommendations: No changes, list is up to date Patient mentioned she takes her medications at night, orders were acted on. Will match that upon verification Pharmacist has collected and clarified current medication list and updated this in [facility], including prescription and vjgy-wqc-xiahcng medications, dietary and herbal supplements. This information may be limited by what the patient/family reports. Skyler Rubin PharmD 11/19/2024 CCM [employer] or SecureChat Prior to Admission medications Medication Sig Last Dose Breast Pump Purchase Electric breast pump for home use. Gestational age at delivery: TBD weeks. Reason for need: lactating mother. Length of need: 99 months (lifetime use) doxylamine-pyridoxine, vit B6, (Diclegis) 10-10 mg TbEC Take 1 Tablet by mouth 2 times daily if needed (nausea and vomiting). 11/07/2024 ferrous sulfate 325 mg delayed release tablet Take one tablet by mouth every other day. 11/17/2024 Evening vit 08-lgza-ojxon-dha 27mg iron- 800 mcg-250 mg cap Take by mouth. 11/18/2024 Evening Progress Notes - OB Encounte r - 11/17/2024 - GA:28w2d 11/17/2024 - - Fani Loving DO Patient is here for routine care at 28w2d -specific issues: Maternal Rh neg status; blood type Rh neg per NIPT Declines blood products for rastafari reasons Low ferritin, on PO iron Concerns [...] r - 10/20/2024 - GA:24w2d 10/20/2024 - - Fani Loving DO Patient is here for routine care at 24w2d -specific issues: Maternal Rh neg status; blood type Rh neg per NIPT Declines blood products for rastafari reasons Low ferritin, on PO iron Concerns [...] neg as well Declines blood products for rastafari reasons Low ferritin, on PO iron Concerns [...] Fani Loving DO .................... 09/20/2024 3:29 PM STRIAL RECRUITER Progress Notes - Orders Only - 09/16/2024 - GA:19w3d 09/16/2024 - 19w3d - Fani Loving DO Rx for PO iron sent to pharmacy for low ferritin. Fani Loving DO .................... 09/16/2024 2:28 PM STRIAL RECRUITER Progress Notes - OB Encounte r - 08/20/2024 - GA:15w4d 08/20/2024 - 15w4d - Fani Loving DO Patient is here for routine care at 15w5d -specific issues: Rh neg status Declines blood products for rastafari reasons Concerns today: Doing relatively well. Has had some episodes of vaginal itching that improved with increased hydration, but now having increased urination. No fevers, abdominal pain, or significant changes in vaginal discharge. Declines UA and T/G/C today, but will reach out in the future if she becomes more symptomatic prior to our next appointment. Patient shares that she is Pentecostalism and declines blood products. Would like to [...] Fani Loving DO .................... 08/21/2024 12:39 PM STRIAL RECRUITER Progress Notes - OB Encounte r - 07/23/2024 - GA:11w4d 07/23/2024 - - Fani Loving DO FIRST OB VISIT HPI: Rony Arteaga is a 23 y.o. female at 11w4d [...] HISTORY LMP:Patient's last menstrual period was 05/03/24. 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 [...] Take 1,000 mg by mouth once daily. lvfhrkg-eehtzzabstljr-qrlzhbae (Excedrin Migraine) 250-250-65 mg Take 1 Tablet [...] for a month or until clear vit 20-yfqt-fjcca-dha 27mg iron- 800 mcg-250 mg cap Take [...] labor. 30 minutes spent in chart review, dhjs-vv-bocm with patient, and documentation on day of encounter. STRIAL RECRUITER Progress Notes - OB Encounte r - 06/10/2024 - GA:5w3d 06/10/2024 - 5w3d - Belen Padilla RN SUBJECTIVE: Rony Arteaga is a 23 y.o. female, , who [...] of estimated date of delivery: No Thalassemia (Ghanaian, Arabic, Mediterranean, or background): MCV less than 80: No Neural tube defect (Meningomyelocele, Spina bifida, or Anencephaly): No Congenital heart defect: No Down syndrome: No Gustabo-Sachs (Ashkenazi Sikhism, Cajun, Kazakh [place]): No Compa disease (Ashkenazi Sikhism): No Familial dysautonomia (Ashkenazi Sikhism): No Sickle cell disease or trait (): No Hemophilia or other blood disorders: No Muscular dystrophy: No Cystic fibrosis: No Braxton's chorea: No Intellectual disability and/or autism: No [...] Take 1,000 mg by mouth once daily. sxyxbqr-nhirtwbsiooqj-dcucldec (Excedrin Migraine) 250-250-65 mg Take 1 Tablet [...] for a month or until clear vit 74-faew-lwriv-dha 27mg iron- 800 mcg-250 mg cap Take [...] of Beginnings book and book inserts, discussed hhcg-sql-kkylexj medications, and follow up. 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 Belen Padilla, TRE Student .................... 06/10/2024 2:52 PM Last Filed Vital Signs Vital Sign Reading Time Taken Comments Blood Pressure 113/74 02/02/2025 2:31 PM CDT Pulse 75 02/02/2025 2:31 PM CDT Temperature 36.8 C (98.2 F) 11/20/2024 3:34 PM CDT Respiratory Rate 16 11/20/2024 3:34 PM CDT Oxygen Saturation 99% 01/26/2025 2:28 PM CDT Inhaled Oxygen Concentration - - Weight 66.3 kg (146 lb 3.2 oz) 02/02/2025 2:31 P M CDT Height 156.5 cm (5' 1.61) 06/10/2024 2:03 PM CD T Body Mass Index 27.08 06/10/2024 2:03 PM CDT Plan of Treatment Upcoming Encounters Date Type Department Care Team (Late st Contact Info) Description 02/09/2025 11:15 AM CDT OB Encounter [facility] [address] [place] [address] Fani Loving, [address] [place] [address] Health Maintenance Due Date Last Done Comments HPV series for age 9-26 (1 - 3-dose series) 2016 COVID-19 vaccine series ( season) 2024 Depression screening for age 12+ 02/22/2025 02/23/2024, 02/25/2023, 12/19/2022, Additional history exists Influenza Vaccine (#1) 2025 BMI (ht and wt on same day) for age 18+ 06/10/2025 06/10/2024, 02/23/2024, 08/19/2022, Additional history exists Chlamydia for age 16-24 06/10/2025 06/10/2024, 02/22 Pap test for age 21-65 02/22/2027 02/23/2024 Tetanus booster 11/17/2034 11/17/2024, 03/18/2014 Hepatitis B series for 19+ Completed 12/14, 03/31/2002, 02/02/2002 Pneumococcal series for age 6-49 Aged Out 12/14/2002, 05/26/2002, 03/31/2002, Additional history exists No longer eligible based on patient's age to complete this topic HIV for age 15-65 Completed 06/10/2024 Hepatitis C screening for age 18-79 Completed 06/10/2024 RSV vaccine for adults or (No Doses Required) Completed Procedures Procedure Name Priority Date/Time Associated Diagnosis Comments VAGINAL/RECTAL OB STREP PCR Routine 01/19/2025 3:21 PM CDT care, first in third trimester (HC) CBC W PLT NO DIFF Routine 01/19/2025 3:1 6 PM CDT care, first in third trimester (HC) RUQ pain AST (SGOT) Routine 01/19/2025 3:16 PM CDT care, first in third trimester (HC) RUQ pain ALT (SGPT) Routine 01/19/2025 3:16 PM CDT care, first in third trimester (HC) RUQ pain CREATININE Routine 01/19/2025 3:16 PM CDT care, first in third trimester (HC) RUQ pain PROTEIN/CREAT RATIO,URINE Routine 01/19/2025 3:13 PM CDT care, first in third trimester (HC) RUQ pain US OB FOLLOW UP ANY TRI SINGLE TA Routine 12/30/2024 1:39 PM CDT Fundal height low for dates in third trimester (HC) TRICHOMONAS, IMELDA, AND BACTERIAL VAGINOSIS BY BERANN Routine 12/29/2024 4:17 PM CDT Vaginal itching HEMOGLOBIN Routine 11/29/2024 4:00 PM CDT Anemia during in third trimester (HC) CREATININE Routine 11/29/2024 4:00 PM CDT Left ureteral stone Calculus of kidney affecting in third trimester (HC) SCAN CORRESP-IMAGING 11/22/2024 3:33 PM CDT CREATININE Today 11/20/2024 12:21 PM CDT WHITE BLOOD COUNT Early AM 11/20/2024 5:1 1 AM CDT NONSTRESS TEST Routine 11/20/2024 12:43 AM CDT CREATININE ANA 11/19/2024 4:01 PM CDT BASIC METABOLIC PANEL Timed 11/19/2024 4:01 PM CDT CBC W PLT NO DIFF Today 11/19/2024 4:0 1 PM CDT URINALYSIS MACROSCOPIC - [facility] ONLY POC DIP ([facility]) Routine 11/12/2024 2:17 PM CDT Urinary frequency URINALYSIS MICROSCOPIC Routine 11/12/2024 2:16 PM CDT Urinary frequency URINE CULTURE Routine 11/12/2024 2:16 PM CDT Urinary frequency GC CHLAMYDIA TRACH PROBE Routine 06/10/2024 3:50 PM CDT Encounter for supervision of other normal , first trimester (HC) HIV 1/2 ANTIGEN/ANTIBODY FOURTH GENERATION W/RFL ([facility]) Routine 06/10/2024 3:44 PM CDT Encounter for supervision of other normal , first trimester (HC) ANTI HCV Routine 06/10/2024 3:44 PM CDT Encounter for supervision of other normal , first trimester (HC) SUPERVISOR BLAST FURNACE THIN PREP PAP SCREEN IMAGED Routine 02/23/2024 8:43 AM CDT Screening for cervical cancer from Last 3 Months or Most Recently Relevant to Health Maintenance Results * VAGINAL/RECTAL OB STREP PCR (01/19/2025 3:21 PM CDT) Pathologist [facility] Vaginal/Rectal OB Strep B PCR Negative 01/21/2025 10:22 AM CDT [facility] TRAL [facility]AT[facility] Other (Vaginal/Rectal) Non-Blood / Unknown 01/19/2025 3:21 PM CDT 01/19/2025 3:21 PM CDT us Fani Loving DO MICROBIOLOGY Final Resu lt [facility] [address] [place] [address], * CBC W PLT NO DIFF (01/19/2025 3:16 PM CDT) Only the most recent of2 resultswithin the time period is included. WHITE BLOOD CELL COUNT 10.5 3.8 - 10.8 Thousand/u L [facility] RED BLOOD CELL COUNT 4.05 3.80 - 5.10 Million/uL [facility] HEMOGLOBIN 12.6 11.7 - 15.5 g/dL [facility] HEMATOCRIT 37.2 35.0 - 45.0 % [facility] MCV 91.9 80.0 - 100.0 fL [facility] MCH 31.1 27.0 - 33.0 pg [facility] MCHC 33.9 32.0 - 36.0 g/dL [facility] Comment: For adults, a slight decrease in the calculated MCHC value (in the range of 30 to 32 g/dL) is most likely not clinically significant; however, it should be interpreted with caution in correlation with other red cell parameters and the patient's clinical condition. RDW 13.0 11.0 - 15.0 % [facility] PLATELET COUNT 149 140 - 400 Thousand/u L [facility] MPV 11.2 7.5 - 12.5 fL [facility] Blood BLOOD SPECIMEN / Unknown 01/19/2025 3:16 PM CDT 01/19/2025 3:17 PM CDT us Fani Loving DO HEMATOLOGY Final Resu lt Performing Organization Address City/[facility]/ZIP Co de Phone Number [employer] [facility] [address] [facility] [place] [address], [facility] [address] [place] [address] * (ABNORMAL) CREATININE (01/19/2025 3:16 PM CDT) Only the most recent of4 resultswithin the time period is included. CREATININE 0.40(L) 0.50 - 0.96 mg/dL [facility] EGFR 143 > OR = 60 mL/min/1.73 m2 [facility] Blood BLOOD SPECIMEN / Unknown 01/19/2025 3:16 PM CDT 01/19/2025 3:17 PM CDT us Fani Loving DO CHEMISTRY Final Resu lt [employer] [facility] [address] [facility] [address], [place] [phone] [facility] [address] [place] [address] * ALT (SGPT) (01/19/2025 3:16 PM CDT) Pathologist [facility] ALT 15 6 - 29 U/L [facility] Blood BLOOD SPECIMEN / Unknown 01/19/2025 3:16 PM CDT 01/19/2025 3:17 PM CDT Fani Sherrie Loving CHEMISTRY Final Resu lt Performing Organization Address City/[facility]/ZIP Co de Phone Number [facility] [address] [address], [place] [phone] [facility] [address] * AST (SGOT) (01/19/2025 3:16 PM CDT) Pathologist [facility] AST 20 10 - 30 U/L [facility] [employer] Blood BLOOD SPECIMEN / Unknown 01/19/2025 3:16 PM CDT 01/19/2025 3:17 PM CDT Fani Loving DO CHEMISTRY Final Resu lt Performing Organization Address [facility]/ZIP Co de Phone Number [employer] [address] [address], [place] [address] * PROTEIN/CREAT RATIO,URINE (01/19/2025 3:13 PM CDT) Pathologist [facility] PROTEIN QUANT,RAND URINE 6 1 - 14 mg/dL 01/19/2025 10:42 PM CDT [facility] CREAT,RANDOM URINE 48.2 28.0 - 217.0 mg/dL 01/19/2025 10:42 PM CDT [facility] PROT/CREAT RATIO,UR 0.1 <0.2 01/19/2025 10:42 PM CDT [facility] Urine URINE SPECIMEN / Unknown Non-Blood / Unknown 01/19/2025 3:13 PM CDT 01/19/2025 3:14 PM CDT us Fani Loving DO URINE Final Resu lt [facility]-C[facility]AL LAB[facility]ATORY [address] [place] [address], [place] * US OB FOLLOW UP ANY TRI SINGLE TA (12/30/2024 1:39 PM CDT) Anatomical Region Laterality Modality , 2or 3 TRIMESTER Ultrasound 12/31/2024 6:56 AM CDT Impressions 12/31/2024 6:56 AM CDT 1. Current ultrasound dating 35 weeks 2 days, DEMARCUS 02/01/2025 2. Given LMP 05/03/2024. Dating by LMP 34 weeks 3 days. 3. Estimated weight 2715 grams, 78th percentile. Dictated by Adriane Lara MD @ 12/31/2024 6:56:17 AM (Electronically Signed) Narrative 12/31/2024 6:56 AM CDT For Patients: As a result of the Cures Act, medical imaging exams and procedure reports are released immediately into your electronic medical record. You may view this report before your referring provider. If you have questions, please contact your health care provider. INDICATION: Evaluate growth. Fundal height less than dates. TECHNIQUE: Ultrasound OB pelvis transabdominal. Real-time dalton-scale imaging of the fetus was performed. Color Doppler and spectral Doppler analysis of the umbilical artery. COMPARISON: 10/06/2024 07/02/2024. FINDINGS: Sonographic imaging demonstrates a single living intrauterine gestation. Fetus demonstrates a regular cardiac rate of 144 beats per minute. Fetus has a cephalic orientation. The placenta lies posterior fundal without evidence of placenta previa. Amniotic fluid volume appears normal. Single deepest vertical pocket: 4.3 cm. Cervix not visualized. The composite ultrasound gestational age is calculated at 35 weeks 2 days with an estimated sonographic due date of 02/01/2025. The estimated weight is 2715 grams which lies at the 78%. The following biometric measurements were obtained: Biparietal diameter: 8.5 cm, 34 weeks 1 day, 39 percentile. Head circumference: 32.1 cm, 36 weeks 2 days, 62 percentile. Abdominal circumference: 32.8 cm, 36 weeks 5 days, 97th percentile. Femur length: 6.5 cm, 33 weeks 4 days, 20 percentile. Procedure Note Jose Lara MD - 12/31/2024 For Patients: As a result of the Century Cures Act, medical imagingexams and procedure reports are released immediately into your electronicmedical record. You may view this report before your referring provider.If you have questions, please contact your health care provider. INDICATION: Evaluate growth. Fundal height less than dates. TECHNIQUE: Ultrasound OB pelvis transabdominal. Real-time dalton-scale imaging of thefetus was performed. Color Doppler and spectral Doppler analysis of theumbilical artery. COMPARISON: 10/06/2024 07/02/2024. FINDINGS: Sonographic imaging demonstrates a single living intrauterine gestation.Fetus demonstrates a regular cardiac rate of 144 beats per minute. Fetushas a cephalic orientation. The placenta lies posterior fundal withoutevidence of placenta previa. Amniotic fluid volume appears normal. Singledeepest vertical pocket: 4.3 cm. Cervix not visualized. The composite ultrasound gestational age is calculated at 35 weeks 2 dayswith an estimated sonographic due date of 02/01/2025. The estimated fetalweight is 2715 grams which lies at the 78%. The following biometric measurements were obtained: Biparietal diameter: 8.5 cm, 34 weeks 1 day, 39 percentile. Head circumference: 32.1 cm, 36 weeks 2 days, 62 percentile. Abdominal circumference: 32.8 cm, 36 weeks 5 days, 97th percentile. Femur length: 6.5 cm, 33 weeks 4 days, 20 percentile. IMPRESSION: 1. Current ultrasound dating 35 weeks 2 days, DEMARCUS 02/01/2025 2. Given LMP 05/03/2024. Dating by LMP 34 weeks 3 days. 3. Estimated weight 2715 grams, 78th percentile. Dictated by Adriane Lara MD @ 12/31/2024 6:56:17 AM (Electronically Signed) us Fani Loving DO US Final Resu lt * (ABNORMAL) TRICHOMONAS, IMELDA, AND BACTERIAL VAGINOSIS BY BREANN (12/29/2024 4:17 PM CDT) IMELDA SPECIES Positive(A) Negative 12/31/19 12:37 PM CDT [facility] IMELDA GLABRATA Negative Negative 12/30/2024 12:37 PM CDT [facility] TRICHOMONAS VVA Negative Negative 12:37 PM CDT [facility] BACTERIAL VAGINOSIS Negative Negative 12/30/2024 12:37 PM CDT [facility] Other VAGINAL SWAB / Unknown Non-Blood / Unknown 12/29/2024 4:17 PM CDT 12/29/2024 4:17 PM CDT Fani Loving DO MICROBIOLOGY Final Resu lt Performing Organization Address City/[facility]/ZIP Co de Phone Number [facility] [address] [place] [address], [place] * HEMOGLOBIN (11/29/2024 4:00 PM CDT) HEMOGLOBIN 12.0 11.7 - 15.5 g/dL [facility] Blood BLOOD SPECIMEN / Unknown 11/29/2024 4:00 PM CDT 11/29/2024 4:00 PM CDT Fani Loving DO HEMATOLOGY Final Resu lt [employer] [facility] [address] [place] [address], [place] [phone] [facility] [address] [place] [address] * SCAN CORRESP-IMAGING (11/22/2024 3:33 PM CDT) Anatomical Region Laterality Modality Other Narrative 11/22/2024 3:33 PM CDT Ordered by an unspecified provider. Other Clinical Staff OTHER Final Resul t * WBC AM (11/20/2024 5:11 AM CDT) WHITE BLOOD COUNT 10.0 4.5 - 11.0 thou/cu mm 11/20/2024 5:26 AM CDT [facility] NRBC 0.0 % 11/20/2024 5:26 AM CDT [facility] ABS NRBC 0.0 thou /cu mm 11/20/2024 5:26 AM CDT [facility] Blood BLOOD SPECIMEN / Unknown Venipuncture / Unknown 11/20/2024 5:11 AM CDT 11/20/2024 5:18 AM CDT [place] [facility] [place]avy Zazueta MD HEMATOLOGY Final Result [facility] [address] [place] [address], [place] * NONSTRESS TEST (11/20/2024 12:43 AM CDT) Narrative Sanjiv Martin III, MD - 11/20/2024 12:43 AM CDT Sanjiv Martin III, MD 11/24/2024 2:56 PM HEART RATE TRACING INTERPRETATION Patient: Rony Arteaga : 2000 Date of test: 11/20/2024 Strip Time Segment: 2347 to 0018 KVNG/Acct: [id number] Admitting Physician: Tessa Ketanists [facility] Gestational Age: 28w5d DEMARCUS of 02/07/2025, by Last Menstrual Period Reason for Non-Stress test: kidney stones Is Patient Having Contractions?: No Movement: Present Baseline FHR: 135 Baseline Variability: Moderate Accelerations: Present Age Appropriate Accelerations: 15 X 15;2 in 20 Decelerations / Type: None Acoustic Stimulator: No Nonstress Test Interpretation: Reactive Result: Expected result Pt transferred from [place] to [facility] for urology evaluation. No surgical intervention recommended by Urology at this time. Conservative management. States that she is just taking Tylenol po for pain. Pt denies any uterine contractions. Denies any LOF or bleeding. Plan BID monitoring with a qd NST while at [facility]. Pt reassured with testing. . Regina Velázquez RN .................... 11/20/2024 12:42 AM us Sanjiv Martin III, MD OB PROCEDURE ORD Fi nal Result * (ABNORMAL) Basic metabolic panel TODAY (11/19/2024 4:01 PM CDT) SODIUM 138 136 - 145 mmol/L 11/19/2024 4:46 PM CDT [facility] TRAL LABORATORY POTASSIUM 3.6 3.5 - 5.1 mmol/L 11/19/2024 4:46 PM CDT [facility] CHLORIDE 104 98 - 107 mmol/L 11/19/2024 4:46 PM CDT [facility] CO2,TOTAL 19(L) 22 - 29 mmol/L 11/19/2024 4:46 PM CDT [facility] ANION GAP 15 5 - 18 11/19/2024 4:46 PM CDT [facility] GLUCOSE 75 70 - 99 mg/dL 11/19/2024 4:46 PM CDT [facility] CALCIUM 8.6(L) 8.8 - 10.4 mg/dL 11/19/2024 4:46 PM CDT [facility] Comment: Reference ranges for this test were updated on 06/15/2024 to reflect our healthy population more accurately. Reference range changes are not retroactively applied to results, but previous results using the same methodology can be interpreted in the context of the new reference range. BUN 11 6 - 20 mg/dL 11/19/2024 4:46 PM CDT [facility] CREATININE 0.43(L) 0.50 - 0.90 mg/dL 11/19/2024 4:46 PM CDT [facility] BUN/CREAT RATIO 26(H) 10 - 20 4:46 PM CDT [facility] eGFR >90 >90 mL/min/1. 73m2 11/19/2024 4:46 PM CDT [facility] Comment:As of 2021, eG FR is calculated by the CKD-EPI creatinine equation without race adjustment. eGFR can be influenced by muscle mass, exercise, and diet. The reported eGFR is an estimation only and is only applicable if the renal function is stable. Blood BLOOD SPECIMEN / Unknown Butterfly / Unknown 11/19/2024 4:01 PM CDT 11/19/2024 4:16 PM CDT Francisco Zazueta MD CHEMISTRY Final Result [facility]-C[facility]TRAL LABORATORY [address] [place] [address], [place] * (ABNORMAL) POCT Urinalysis Dipstick Only [[id number]] (11/12/2024 2:17 PM CDT) PH 7.0 5.0 - 8.0 [facility] SPECIFIC GRAVITY 1.020 1.001 - 1.035 [facility] GLUCOSE NEGATIVE NEGATIVE [facility] BILIRUBIN NEGATIVE NEGATIVE [facility] KETONES NEGATIVE NEGATIVE [facility] OCCULT BLOOD NEGATIVE NEGATIVE [facility] PROTEIN NEGATIVE NEGATIVE [facility] NITRITE NEGATIVE NEGATIVE [facility] LEUKOCYTE ESTERASE TRACE(A) NEGATIVE [facility] Urine URINE SPECIMEN / Unknown 11/12/2024 2:17 PM CDT 11/12/2024 2:17 PM CDT Teto Choudhury MD URINE Final Result Performing Organization Address City/[facility]/ZIP Co de Phone Number [facility] [address] [place] [address], [place] [phone] [facility] [address] [place] [address] * URINALYSIS MICROSCOPIC [64787.1] - routine (11/12/2024 2:16 PM CDT) RBC 0-2 0-2, None Seen /HPF 11/12/2024 10:28 PM CDT [facility] WBC 0-2 0-2, 3-5, None Seen /HPF 11/12/2024 10:28 PM CDT [facility] BACTERIA None Seen None Seen, Rare, Few Bacteria/ HPF 11/12/2024 10:28 PM CDT [facility] EPITHELIAL CELLS None Seen None Seen, Few Epi/HPF 11/12/2024 10:28 PM CDT [facility] HYALINE CASTS 0-2 0-2, 3-5 /LPF 11/12/2024 10:28 PM CDT [facility] Urine URINE SPECIMEN / Unknown Non-Blood / Unknown 11/12/2024 2:16 PM CDT 11/12/2024 2:17 PM CDT Teto Choudhury MD URINE Final Result Performing Organization Address City/[facility]/ZIP Co de Phone Number [facility] [address] [place] [address], [place] * URINE CULTURE [08373.2] (11/12/2024 2:16 PM CDT) CULTURE <10,000 CFU/mL multiple organisms 11/14/2024 2:20 PM CDT [facility] Urine URINE SPECIMEN / Unknown Non-Blood / Unknown 11/12/2024 2:16 PM CDT 11/12/2024 2:17 PM CDT Teto Choudhury MD MICROBIOLOGY Final Result [facility] [address] [place] [address], [place] * SUPERVISOR BLAST FURNACE PROBE - GC CHLAMYDIA DNA PCR [[id number]] (06/10/2024 3:50 PM CDT) CHLAMYDIA PROBE Negative 2:54 PM CDT [facility] N GONORRHOEAE PROBE Negative 06/11/2024 2:54 PM CDT [facility] Other URINE SPECIMEN / Unknown Non-Blood / Unknown 06/10/2024 3:50 PM CDT 06/10/2024 3:50 PM CDT us Fani Loving DO MICROBIOLOGY Final Resu lt [facility]AL LAB[facility]AT[facility] [address] [place] [address], [place] * HIV 1/2 ANTIGEN/ANTIBODY FOURTH GENERATION W/RFL ([employer]) (06/10/2024 3:44 PM CDT) HIV AG/AB, 4TH GEN NON-REACT RHONDA NON-REACT RHONDA [facility] Comment: HIV-1 antigen and HIV-1/HIV-2 antibodies were [...] purpose. For additional information please refer to http://education.RealMatch.SCI Marketview/faq/PWV213 (This link is being provided for informational/ educational purposes only.) The performance of this assay has not been clinically validated in patients less than 2 years old. Blood BLOOD SPECIMEN / Unknown 06/10/2024 3:44 PM CDT 06/10/2024 3:45 PM CDT us Fani Loving DO SEND OUTS Final Resu lt Performing Organization Address City/[facility]/ZIP Co de Phone Number [employer] [address] [address], [facility] [address] [place] [address] * ANTI HCV (06/10/2024 3:44 PM CDT) HEPATITIS C ANTIBODY NON-REACTI VE NON-REACT RHONDA [facility] Comment: HCV antibody was non-reactive. There is no laboratory evidence of HCV infection. In most cases, no further action is required. However, if recent HCV exposure is suspected, a test for HCV RNA (test code 02371) is suggested. For additional information please refer to http://education.Lumatic/faq/ZGO21j8 (This link is being provided for informational/ educational purposes only.) Blood BLOOD SPECIMEN / Unknown 06/10/2024 3:44 PM CDT 06/10/2024 3:45 PM CDT Fani Loving DO SEND OUTS Final Resu lt [employer] [facility] [address] [place] [address], [facility] [address] [place] [address] * SUPERVISOR BLAST FURNACE THIN PREP PAP SCREEN IMAGED [[id number]] (02/23/2024 8:43 AM CDT) Case Report Gynecologic Cytology Report Case: [id number] Authorizing Provider: Nataliia Chavis DO Collected: 02/23/2024 0843 Ordering Location: [facility] Received: 02/23/2024 0917 Clinic First Screen: Shruthi Coleman Specimen: SUPERVISOR BLAST FURNACE ThinPrep Vial Screening, Cervical 03/05/2024 11:44 AM CDT [facility] INTERPRETATION/ RESULT NEGATIVE FOR INTRAEPITHELIAL LESION OR MALIGNANCY (NIL) (none) 03/05/2024 11:44 AM CDT [facility] at 1144 CDT SPECIMEN ADEQUACY Satisfactory for evaluation Endocervical component present Scant cellularity 03/05/2024 11:44 AM CDT [facility] EN[facility] Date of LMP 12/18/2023 03/05/2024 11:44 AM CDT [facility] EN[facility] Last Pap Date N/A 03/05/2024 11:44 AM CDT [facility] EN[facility] LABOR[facility]ORY Last Pap Result First Pap/Unknown 11:44 AM CDT [facility] ENTRAL LABORATORY Abnormal Pap or [place] Bx in last 5 years No 03/05/2024 11:44 AM CDT [facility] EN[facility] LABOR[facility]ORY Menstrual Status Irregular Periods 03/05/2024 11:44 AM CDT [facility] [place] Bx Done Today No 03/05/2024 11:44 AM CDT [facility] ENTRNY LABORATORY Additional Information None given 03/05/2024 11:44 AM CDT [facility] ENTRAL LABORATORY Comment: Cytology is screened at [facility] - [address], [place] [address] and [facility] - [address] [place] [address] and [facility] - [address] [place] [address] Interpreted at [facility] - [address], [place] [address] Automated Review Successful 03/05/2024 11:44 AM CDT [facility] ENTRAL LABORATORY Comment:Specimen processed s uccessfully by automated factory hand device, ThinPrep Imaging System, [employer] Note The pap test is a [...] and malignant lesions. 03/05/2024 11:44 AM CDT [facility] ENTRAL LABORATORY Other (Cervical) Non-Blood / Unknown 02/23/2024 8:43 AM CDT 02/23/2024 9:17 AM CDT us Nataliia Chavis DO PATHOLOGY/CYTOLOGY Final Resu lt [facility]-CENTRAL LABORATORY [address] [place] [address], [place] from Last 3 Months or Most Recently Relevant to Health Maintenance Insurance [facility] Member Subscriber Plan / Payer (Ef fective 2024-Present) Name:Rony Arteaga Relation to Subscriber:Child Name:JOSEPÉREZ Date of :1978 Address: [address] [place] [address] Payer ID:[id number] (NAIC) Type:Not on file Address: [address] [employer] Advance Directives Documents on File Type Date Recorded Patient Housing Coordinator Expl anation Healthcare Directive 12/16/2024 025 * Full Code (Latest Code Status on File) Date Activated Date Inactivated Comments 11/19/2024 4:26 PM 11/20/2024 6:45 PM Question Answer Comments Code Status Discussion: Reviewed Preferences Care Teams Helmet Hat Sweatband Puncher Relationship Specialty Start Date End Date Nataliia Chavis DO [address] [place] [address] PCP - General Family Practice 08/19/22
--- OUTSIDE RECORDS SUMMARY | 2025-02-09 01:52 | XMS_ITS | Continuity of Care Document ---
Author Organization [place] [facility] Address [address] [facility] [address] [place] [address] Assessment Encounter Date Assessment Date Assessment LastModified by Organization Details LastModified Time 01/14/2025 01/14/2025 ASSESSMENT: Patient is a good candidate for [...] to contact our office. ecram Not available 01/14/2025 11:32:36 Plan of Treatment Reminders Order Date Submit [...] Organization Details Recorded Time Thoracic segmental dysfunction 493112786 Active 2024 Denis Bedolla DC [address] [facility], [place], [address], [facility] 18:44:22 Low back pain 883227331 Active 2024 Denis Bedolla [place] [address] [facility], [place], [address], [facility] 5 18:44:22 Lumbar segmental dysfunction 695391040 Active 2024 Denis Bedolla [place] [address] [facility], [place], [address], [facility] 18:44:22 Somatic dysfunction of sacral spine 411324835 Active 2024 Denis Bedolla [place] [address] [facility], [place], [address], [facility] 5 18:44:22 Thoracic spondylosis 410986607 Active 2024 Kingsley Macias DC [address] [place] [address], [place], [address], [place] [facility] 5 11:33:42 Pain in thoracic spine 230952212 Active 2024 Kingsley Macias DC [address] [place] [address], [place], [address], [place] [facility] 5 11:33:42 Muscle spasm of thoracic back 1648458943563 06 Active 2024 Kingsley Macias DC [address] [place] [address], [place], [address], [place] [facility] 5 11:33:42 Problem Notes None recorded. Procedures Surgical History Date Name Laterality Status Provider Name and Address Organization Details Recorded Time 5 94616: Spinal manipulation , 3 to 4 regions completed Kingsley Macias DC [address] [facility], [place], [place], [address], [facility] 02/07/2025 12:01:36 5 52718: Spinal manipulation , 3 to 4 regions completed Kingsley Macias, FILI [address] [facility], [place], [address], [facility] 02/04/2025 09:38:51 5 88032: Spinal manipulation , 3 to 4 regions completed Kingsley Dipesh Seferino [place] [address] [facility], [place], [address], [facility] 01/31/2025 14:57:52 5 22546: Spinal manipulation , 3 to 4 regions completed Kingsley Macias DC [address] [facility], [place], [address], [facility] 01/28/2025 09:40:11 5 93042: Spinal manipulation , 3 to 4 regions completed Kingsley Macias DC [address] [facility], [place], [address], [facility] 01/24/2025 12:10:02 5 58307: Spinal manipulation , 3 to 4 regions completed Kingsley Macias DC [address] [facility], [place], [address], [facility] 01/22/2025 20:11:53 5 45936: Spinal manipulation , 3 to 4 regions completed Kingsley Macias DC [address] [facility], [place], [address], [facility] 01/14/2025 11:32:36 5 02804: Spinal manipulation , 3 to 4 regions completed Denis Bedolla [place] [address] [facility], [place], [address], [facility] 08/30/2024 18:45:28 Imaging Results None recorded. [...] SNOMED-CT Code Diagnosis ICD10 Code Diagnosis Note [id number] Kingsley Macias DC [facility] [address] [place] [address] [place] [address] 01/14/2025 11:26:32 01/14/2025 12:21:44 Lumbar segmental dysfunction 747635086 M99.03 Low back pain 808199271 M54.50 Somatic dy sfunction of sacral spine 487842692 M99.04 Thoracic s egmental dysfunction 225065772 M99.02 Pain in th oracic spine 936465774 M54.6 Thoracic spondylosis 387 438758 M47.814 Muscle spa sm of thoracic back 8497547435 28366 M62.830 Health Concerns Section Related Observation LastModified by Organization Detai ls LastModified Time None Recorded Concern Status LastModified by Organization Details LastModified Time None Recorded Payers Encounter Date Sequence Insurance Name Policy Number Policy Fong Covered Member ID Fong Member ID Guarantor Name 01/14/2025 1 UMR [id number] Theodore Ferro [id number] Angeles Ferro 01/14/2025 2 UMR [id number] Singh Rao [id number] Angeles Ferro Notes Date Note Type Note Provider Name and Address Organization Details Recorded Time 01/14/2025 text/html HPI - Lumbar SpineReported bypatient.Location: bilateral Quality:aching Severity:not changing Timing:morning Aggravating Factors:standing Alleviating Factors:ice Patient presents for mid back pain. She was diagnosed with scoliosis 5 years ago. She is currently 17 weeks . Patient was seeing a chiropractor previously. Kingsley Macias, FILI [address] [place] [address], [place], [address], [facility] 01/14/2025 11:34:40 OBGyn Episode No OBEpisode recorded.
--- OUTSIDE RECORDS SUMMARY | 2025-02-09 01:53 | XMS_ITS | Continuity of Care Document ---
Author Organization [facility] Address [address] [facility] [address] [place] [address] Assessment Encounter Date Assessment Date Assessment LastModified by Organization Details LastModified Time 01/28/2025 01/28/2025 ASSESSMENT: Patient is a good candidate for [...] to contact our office. ecram Not available 01/28/2025 09:40:11 Plan of Treatment Reminders Order Date Submit [...] Organization Details Recorded Time Thoracic segmental dysfunction 221991370 Active 2024 Denis Bedolla DC [address] [facility], [place], [address], [facility] 18:44:22 Low back pain 034436328 Active 2024 Denis Bedolla [place] [address] [facility], [place], [address], [facility] 5 18:44:22 Lumbar segmental dysfunction 336269891 Active 2024 Denis Bedolla [place] [address] [facility], [place], [address], [facility] 18:44:22 Somatic dysfunction of sacral spine 087878448 Active 2024 Denis Bedolla [place] [address] [facility], [place], [address], [facility] 5 18:44:22 Thoracic spondylosis 826228070 Active 2024 Kingsley Macias DC [address] [place] [address], [place], [address], [facility] 5 11:33:42 Pain in thoracic spine 967591736 Active 2024 Kingsley Macias DC [address] [place] [address], [place], [address], [facility] 5 11:33:42 Muscle spasm of thoracic back 9841383773094 06 Active 2024 Kingsley Macias DC [address] [place] [address], [place], [address], [facility] 5 11:33:42 Problem Notes None recorded. Procedures Surgical History Date Name Laterality Status Provider Name and Address Organization Details Recorded Time 5 09927: Spinal manipulation , 3 to 4 regions completed Kingsley Macias DC [address] [facility], [place], [place], [address], [facility] 02/07/2025 12:01:36 5 51120: Spinal manipulation , 3 to 4 regions completed Kingsley Macias, FILI [address] [facility], [place], [address], [facility] 02/04/2025 09:38:51 5 21519: Spinal manipulation , 3 to 4 regions completed Kingsley Dipesh Seferino [place] [address] [facility], [place], [address], [facility] 01/31/2025 14:57:52 5 26470: Spinal manipulation , 3 to 4 regions completed Kingsley Macias DC [address] [facility], [place], [address], [facility] 01/28/2025 09:40:11 5 95221: Spinal manipulation , 3 to 4 regions completed Kingsley Macias DC [address] [facility], [place], [address], [facility] 01/24/2025 12:10:02 5 30950: Spinal manipulation , 3 to 4 regions completed Kingsley Macias DC [address] [facility], [place], [address], [facility] 01/22/2025 20:11:53 5 62313: Spinal manipulation , 3 to 4 regions completed Kingsley Macias DC [address] [facility], [place], [address], [facility] 01/14/2025 11:32:36 5 58672: Spinal manipulation , 3 to 4 regions completed Denis Bedolla [place] [address] [facility], [place], [address], [facility] 08/30/2024 18:45:28 Imaging Results None recorded. [...] SNOMED-CT Code Diagnosis ICD10 Code Diagnosis Note [id number] Kingsley Mac[facility] & [address] [facility] [place] [address] 01/14/2025 11:26:32 01/14/2025 12:21:44 Lumbar segmental dysfunction 766215647 M99.03 Low back pain 857307042 M54.50 Somatic dy sfunction of sacral spine 128900704 M99.04 Thoracic s egmental dysfunction 429149267 M99.02 Pain in th oracic spine 930129590 M54.6 Thoracic spondylosis 387 382965 M47.814 Muscle spa sm of thoracic back 9058957178 69323 M62.830 [id number] Kingsley Macias DC [facility] & [address] [facility] [place] [address] 01/21/2025 11:36:07 01/25/2025 17:06:57 Lumbar segmental dysfunction 859019335 M99.03 Low back pain 059970771 M54.50 Somatic dy sfunction of sacral spine 853434940 M99.04 Thoracic s egmental dysfunction 161624538 M99.02 Pain in th oracic spine 191474218 M54.6 Thoracic spondylosis 387 424647 M47.814 Muscle spa sm of thoracic back 3646463159 54857 M62.830 [id number] Kingsley Macias DC [facility] [address] [facility] [place] [address] 01/24/2025 11:32:47 01/25/2025 17:13:44 Lumbar segmental dysfunction 307489304 M99.03 Low back pain 076060533 M54.50 Somatic dy sfunction of sacral spine 341465724 M99.04 Thoracic s egmental dysfunction 778735847 M99.02 Pain in th oracic spine 211380843 M54.6 Thoracic spondylosis 387 251798 M47.814 Muscle spa sm of thoracic back 8874806856 78958 M62.830 [id number] Kingsley Macias DC [facility] & [address] [place] [address] 01/28/2025 09:32:31 01/28/2025 10:19:23 Lumbar segmental dysfunction 232454081 M99.03 Low back pain 752144502 M54.50 Somatic dy sfunction of sacral spine 167028966 M99.04 Thoracic s egmental dysfunction 594468065 M99.02 Pain in th oracic spine 175730922 M54.6 Thoracic spondylosis 387 667959 M47.814 Muscle spa sm of thoracic back 5436780624 67462 M62.830 Health Concerns Section Related Observation LastModified by Organization Detai ls LastModified Time None Recorded Concern Status LastModified by Organization Details LastModified Time None Recorded Payers Encounter Date Sequence Insurance Name Policy Number Policy Fong Covered Member ID Fong Member ID Guarantor Name 01/28/2025 1 UMR [id number] Theodore Ferro [id number] Angeles Ferro 01/28/2025 2 UMR [id number] Singh Rao [id number] Angeles Ferro Notes Date Note Type Note Provider Name and Address Organization Details Recorded Time 01/28/2025 text/html HPI - Lumbar SpineReported bypatient.Location: bilateral Quality:aching Severity:not changing Timing:morning Aggravating Factors:standing Alleviating Factors:ice Patient presents for mid back pain. She was diagnosed with scoliosis 5 years ago. She is currently 17 weeks . Patient was seeing a chiropractor previously. Kingsley Macias DC [address] [place] [address], [place], [address], [facility] 01/28/2025 09:54:52 OBGyn Episode No OBEpisode recorded.
--- OUTSIDE RECORDS SUMMARY | 2025-02-09 01:53 | XMS_ITS | Continuity of Care Document ---
Author Organization [facility] Address [address] [facility] [address] [place] [address] Assessment Encounter Date Assessment Date Assessment LastModified by Organization Details LastModified Time 02/04/2025 02/04/2025 ASSESSMENT: Patient is a good candidate for [...] to contact our office. ecram Not available 02/04/2025 09:38:51 Plan of Treatment Reminders Order Date Submit [...] Organization Details Recorded Time Thoracic segmental dysfunction 859585069 Active 2024 Denis Bedolla DC [address] [facility], [place], [address], [facility] 18:44:22 Low back pain 354736380 Active 2024 Denis Bedolla [place] [address] [facility], [place], [address], [facility] 5 18:44:22 Lumbar segmental dysfunction 305707852 Active 2024 Denis Bedolla [place] [address] [facility], [place], [address], [facility] 18:44:22 Somatic dysfunction of sacral spine 562400132 Active 2024 Denis Bedolla [place] [address] [facility], [place], [address], [facility] 5 18:44:22 Thoracic spondylosis 502775544 Active 2024 Kingsley Macias DC [address] [place] [address], [place], [address], [facility] 5 11:33:42 Pain in thoracic spine 786335746 Active 2024 Kingsley Macias DC [address] [place] [address], [place], [address], [facility] 5 11:33:42 Muscle spasm of thoracic back 8008673993866 06 Active 2024 Kingsley Macias DC [address] [place] [address], [place], [address], [facility] 5 11:33:42 Problem Notes None recorded. Procedures Surgical History Date Name Laterality Status Provider Name and Address Organization Details Recorded Time 5 47486: Spinal manipulation , 3 to 4 regions completed Kingsley Macias DC [address] [facility], [place], [place], [address], [facility] 02/07/2025 12:01:36 5 98557: Spinal manipulation , 3 to 4 regions completed Kingsley Macias, FILI [address] [facility], [place], [address], [facility] 02/04/2025 09:38:51 5 20924: Spinal manipulation , 3 to 4 regions completed Kingsley Dipesh Seferino [place] [address] [facility], [place], [address], [facility] 01/31/2025 14:57:52 5 70427: Spinal manipulation , 3 to 4 regions completed Kingsley Macias DC [address] [facility], [place], [address], [facility] 01/28/2025 09:40:11 5 17044: Spinal manipulation , 3 to 4 regions completed Kingsley Macias DC [address] [facility], [place], [address], [facility] 01/24/2025 12:10:02 5 28903: Spinal manipulation , 3 to 4 regions completed Kingsley Macias DC [address] [facility], [place], [address], [facility] 01/22/2025 20:11:53 5 85960: Spinal manipulation , 3 to 4 regions completed Kingsley Macias DC [address] [facility], [place], [address], [facility] 01/14/2025 11:32:36 5 18963: Spinal manipulation , 3 to 4 regions completed Denis Bedolla [place] [address] [facility], [place], [address], [facility] 08/30/2024 18:45:28 Imaging Results None recorded. Procedure [...] SNOMED-CT Code Diagnosis ICD10 Code Diagnosis Note [id number] Kingsley Macias DC [facility] & [address] [facility] [place] [address] 01/14/2025 11:26:32 01/14/2025 12:21:44 Lumbar segmental dysfunction 795521607 M99.03 Low back pain 874861424 M54.50 Somatic dy sfunction of sacral spine 446754063 M99.04 Thoracic s egmental dysfunction 086705855 M99.02 Pain in th oracic spine 990698704 M54.6 Thoracic spondylosis 387 274210 M47.814 Muscle spa sm of thoracic back 2901355615 53890 M62.830 [id number] Kingsley Macias DC [facility] & [address] [facility] [place] [address] 01/21/2025 11:36:07 01/25/2025 17:06:57 Lumbar segmental dysfunction 601014205 M99.03 Low back pain 472159391 M54.50 Somatic dy sfunction of sacral spine 895963229 M99.04 Thoracic s egmental dysfunction 962934966 M99.02 Pain in th oracic spine 531475625 M54.6 Thoracic spondylosis 387 475643 M47.814 Muscle spa sm of thoracic back 9512876728 45031 M62.830 [id number] Kingsley Macias DC [facility] & [address] [place] [address] 01/24/2025 11:32:47 01/25/2025 17:13:44 Lumbar segmental dysfunction 629501142 M99.03 Low back pain 106541344 M54.50 Somatic dy sfunction of sacral spine 079563683 M99.04 Thoracic s egmental dysfunction 019096068 M99.02 Pain in th oracic spine 050041560 M54.6 Thoracic spondylosis 387 904639 M47.814 Muscle spa sm of thoracic back 6752702881 42618 M62.830 [id number] Kingsley Macias DC [address] [place] [address] 01/28/2025 09:32:31 01/28/2025 10:19:23 Lumbar segmental dysfunction 977917970 M99.03 Low back pain 791478713 M54.50 Somatic dy sfunction of sacral spine 910713477 M99.04 Thoracic s egmental dysfunction 785031401 M99.02 Pain in th oracic spine 769199430 M54.6 Thoracic spondylosis 387 646077 M47.814 Muscle spa sm of thoracic back 8594529605 06114 M62.830 [id number] Kingsley Macias DC [facility] & [address] [place] [address] 01/31/2025 11:36:58 01/31/2025 15:02:13 Lumbar segmental dysfunction 412582253 M99.03 Low back pain 998974893 M54.50 Somatic dy sfunction of sacral spine 337192169 M99.04 Thoracic s egmental dysfunction 633786665 M99.02 Pain in th oracic spine 218541970 M54.6 Thoracic spondylosis 387 103081 M47.814 Muscle spa sm of thoracic back 3034026480 89079 M62.830 [id number] FILI Otto [facility] [address] [facility] [place] [address] 02/04/2025 09:38:04 02/04/2025 09:51:00 Lumbar segmental dysfunction 173976911 M99.03 Low back pain 489579358 M54.50 Somatic dy sfunction of sacral spine 409237165 M99.04 Thoracic s egmental dysfunction 316287669 M99.02 Pain in th oracic spine 954566337 M54.6 Thoracic spondylosis 387 458903 M47.814 Muscle spa sm of thoracic back 8473647714 77994 M62.830 Health Concerns Section Related Observation LastModified by Organization Detai ls LastModified Time None Recorded Concern Status LastModified by Organization Details LastModified Time None Recorded Payers Encounter Date Sequence Insurance Name Policy Number Policy Fong Covered Member ID Fong Member ID Guarantor Name 02/04/2025 1 UMR [id number] Theodore Ferro [id number] Angeles Ferro 02/04/2025 2 UMR [id number] Singh Rao [id number] Angeles Ferro Notes Date Note Type Note Provider Name and Address Organization Details Recorded Time 02/04/2025 text/html HPI - Lumbar SpineReported bypatient.Location: bilateral Quality:aching Severity:not changing Timing:morning Aggravating Factors:standing Alleviating Factors:ice Patient presents for mid back pain. She was diagnosed with scoliosis 5 years ago. She is currently 17 weeks . Patient was seeing a chiropractor previously. Kingsley Macias DC [address] [facility], [place], [address], [facility] 02/04/2025 09:41:13 OBGyn Episode No OBEpisode recorded.
--- OUTSIDE RECORDS SUMMARY | 2025-02-09 01:53 | XMS_ITS | Continuity of Care Document ---
Author Organization [place] [facility] Address [address] [facility] [address] [place] [address] Assessment Encounter Date Assessment Date Assessment LastModified by Organization Details LastModified Time 02/07/2025 02/07/2025 ASSESSMENT: Patient is a good candidate for [...] to contact our office. ecram Not available 02/07/2025 12:01:36 Plan of Treatment Reminders Order Date Submit [...] Organization Details Recorded Time Thoracic segmental dysfunction 471057257 Active 2024 Denis Bedolla DC [address] [facility], [place], [address], [place] [facility] 18:44:22 Low back pain 915595923 Active 2024 Denis Bedolla [place] [address] [facility], [place], [address], [place] [facility] 5 18:44:22 Lumbar segmental dysfunction 275560996 Active 2024 Denis Bedolla [place] [address] [facility], [place], [address], [place] [facility] 18:44:22 Somatic dysfunction of sacral spine 235149144 Active 2024 Deins Bedolla [place] [address] [facility], [place], [address], [place] [facility] 5 18:44:22 Thoracic spondylosis 796085424 Active 2024 Kingsley Macias DC [address] [place] [address], [place], [address], [place] [facility] 5 11:33:42 Pain in thoracic spine 519686862 Active 2024 Kingsley Macias DC [address] [place] [address], [place], [address], [place] [facility] 5 11:33:42 Muscle spasm of thoracic back 6647871708317 06 Active 2024 Kingsley Macias DC [address] [place] [address], [place], [address], [place] [facility] 5 11:33:42 Problem Notes None recorded. Procedures Surgical History Date Name Laterality Status Provider Name and Address Organization Details Recorded Time 5 80341: Spinal manipulation , 3 to 4 regions completed Kingsley Macias DC [address] [facility], [place], [place], [address], [place] [facility] 02/07/2025 12:01:36 5 21028: Spinal manipulation , 3 to 4 regions completed Kingsley Macias, FILI [address] [facility], [place], [address], [facility] 02/04/2025 09:38:51 5 31531: Spinal manipulation , 3 to 4 regions completed Kingsley Dipesh Seferino [place] [address] [facility], [place], [address], [facility] 01/31/2025 14:57:52 5 40633: Spinal manipulation , 3 to 4 regions completed Kingsley Macias DC [address] [facility], [place], [address], [facility] 01/28/2025 09:40:11 5 03681: Spinal manipulation , 3 to 4 regions completed Kingsley Macias DC [address] [facility], [place], [address], [facility] 01/24/2025 12:10:02 5 66549: Spinal manipulation , 3 to 4 regions completed Kingsley Macias DC [address] [facility], [place], [address], [facility] 01/22/2025 20:11:53 5 44960: Spinal manipulation , 3 to 4 regions completed Kingsley Macias DC [address] [facility], [place], [address], [facility] 01/14/2025 11:32:36 5 93869: Spinal manipulation , 3 to 4 regions completed Denis Bedolla [place] [address] [facility], [place], [address], [facility] 08/30/2024 18:45:28 Imaging Results None [...] SNOMED-CT Code Diagnosis ICD10 Code Diagnosis Note [id number] Kingsley Macias DC [facility] & [address] [facility] [place] [address] 01/14/2025 11:26:32 01/14/2025 12:21:44 Lumbar segmental dysfunction 739702768 M99.03 Low back pain 417977613 M54.50 Somatic dy sfunction of sacral spine 643596300 M99.04 Thoracic s egmental dysfunction 339153010 M99.02 Pain in th oracic spine 768046207 M54.6 Thoracic spondylosis 387 454383 M47.814 Muscle spa sm of thoracic back 2861162797 79188 M62.830 [id number] Kingsley Macias DC [facility] & [address] [facility] [place] [address] 01/21/2025 11:36:07 01/25/2025 17:06:57 Lumbar segmental dysfunction 890143801 M99.03 Low back pain 256960111 M54.50 Somatic dy sfunction of sacral spine 555511011 M99.04 Thoracic s egmental dysfunction 726363113 M99.02 Pain in th oracic spine 693189274 M54.6 Thoracic spondylosis 387 655102 M47.814 Muscle spa sm of thoracic back 0798925308 62089 M62.830 [id number] Kingsley Macias DC [facility] & [address] [place] [address] 01/24/2025 11:32:47 01/25/2025 17:13:44 Lumbar segmental dysfunction 519418766 M99.03 Low back pain 797183569 M54.50 Somatic dy sfunction of sacral spine 311261686 M99.04 Thoracic s egmental dysfunction 634208573 M99.02 Pain in th oracic spine 277824756 M54.6 Thoracic spondylosis 387 609235 M47.814 Muscle spa sm of thoracic back 9272844113 64965 M62.830 [id number] Kingsley Macias DC [address] [place] [address] 01/28/2025 09:32:31 01/28/2025 10:19:23 Lumbar segmental dysfunction 130543758 M99.03 Low back pain 587732532 M54.50 Somatic dy sfunction of sacral spine 336368107 M99.04 Thoracic s egmental dysfunction 425862124 M99.02 Pain in th oracic spine 510817988 M54.6 Thoracic spondylosis 387 238731 M47.814 Muscle spa sm of thoracic back 6773633995 18033 M62.830 [id number] Kingsley Macias DC [facility] & [address] [place] [address] 01/31/2025 11:36:58 01/31/2025 15:02:13 Lumbar segmental dysfunction 841936227 M99.03 Low back pain 924288856 M54.50 Somatic dy sfunction of sacral spine 115934827 M99.04 Thoracic s egmental dysfunction 848699917 M99.02 Pain in th oracic spine 278884111 M54.6 Thoracic spondylosis 387 215655 M47.814 Muscle spa sm of thoracic back 5109633888 90164 M62.830 [id number] Kingsley Macias DC [facility] & [address] [place] [address] 02/04/2025 09:38:04 02/04/2025 09:51:00 Lumbar segmental dysfunction 732416528 M99.03 Low back pain 694492396 M54.50 Somatic dy sfunction of sacral spine 199061751 M99.04 Thoracic s egmental dysfunction 478477579 M99.02 Pain in th oracic spine 404006634 M54.6 Thoracic spondylosis 387 042102 M47.814 Muscle spa sm of thoracic back 5720344735 56288 M62.830 Kingsley Macias DC [address] [place] [address] 02/07/2025 11:36:10 02/07/2025 12:02:38 Lumbar segmental dysfunction 895925328 M99.03 Low back pain 237548598 M54.50 Somatic dy sfunction of sacral spine 456834436 M99.04 Thoracic s egmental dysfunction 542765770 M99.02 Pain in th oracic spine 617868328 M54.6 Thoracic spondylosis 387 491812 M47.814 Muscle spa sm of thoracic back 5113352832 90220 M62.830 Health Concerns Section Related Observation LastModified by Organization Detai ls LastModified Time None Recorded Concern Status LastModified by Organization Details LastModified Time None Recorded Payers Encounter Date Sequence Insurance Name Policy Number Policy Fong Covered Member ID Fong Member ID Guarantor Name 02/07/2025 1 UMR [id number] Theodore Ferro [id number] [place] Ferro 02/07/2025 2 UMR [id number] Singh Rao [id number] [place] Ferro Notes Date Note Type Note Provider Name and Address Organization Details Recorded Time 02/07/2025 text/html HPI - Lumbar SpineReported bypatient.Location: bilateral Quality:aching Severity:not changing Timing:morning Aggravating Factors:standing Alleviating Factors:ice Patient presents for mid back pain. She was diagnosed with scoliosis 5 years ago. She is currently 17 weeks . Patient was seeing a chiropractor previously. Kingsley Macias DC [address] [place] [address], [place], [address], [facility] 02/07/2025 12:02:28 OBGyn Episode No OBEpisode recorded.
--- OUTSIDE RECORDS SUMMARY | 2025-02-09 01:53 | XMS_ITS | Data Portability ---
Author Organization [place] [facility] [employer] [facility] Address [address] [facility] [address] [place] [address] Assessment Encounter Date Assessment Date Assessment LastModified by Organization Details LastModified Time 01/24/2025 01/24/2025 ASSESSMENT: Patient is a good candidate for [...] to contact our office. ecram Not available 01/24/2025 12:10:02 01/28/2025 01/28/2025 ASSESSMENT: Patient is a good [...] our office. ecram Not available 01/28/2025 09:40:11 01/31/2025 01/31/2025 ASSESSMENT: Patient is a good [...] our office. ecram Not available 01/31/2025 14:57:52 02/04/2025 02/04/2025 ASSESSMENT: Patient is a good [...] our office. ecram Not available 02/04/2025 09:38:51 02/07/2025 02/07/2025 ASSESSMENT: Patient is a good [...] Organization Details Recorded Time Thoracic segmental dysfunction 494690940 Active [address], [place], [address], [facility] 18:44:22 Low back pain 290663964 Active 2024 [place], [place] [address], [place], [address], [facility] 18:44:22 Lumbar segmental dysfunction 924310792 Active 2024 [place], [place] [address], [place], [address], [facility] 18:44:22 Somatic dysfunction of sacral spine 242163559 Active 2024 Denis Bedolla, FILI [address], [place], [address], [facility] 18:44:22 Thoracic spondylosis 826130213 Active 2024 Kingsley Macias FILI [address], [place], [address], [facility] 11:33:42 Pain in thoracic spine 754531657 Active 2024 Kingsley Landon María Elenaalison FILI [address], [place], [address], [facility] 11:33:42 Muscle spasm of thoracic back 6963311263055 06 Active 2024 Kingsley Landon María ElenaalisonFILI [address], [place], [address], [facility] 11:33:42 Problem Notes None recorded. Procedures Surgical History Date Name Laterality Status Provider Name and Address Organization Details Recorded Time 04781: Spinal manipulation , 3 to 4 regions completed Kingsley Macias DC [address], [place], [address], [facility] 02/07/2025 12:01:36 5 71473: Spinal manipulation , 3 to 4 regions completed Kingsley Macias DC [address], [place], [address], [facility] 02/04/2025 09:38:51 5 87672: Spinal manipulation , 3 to 4 regions completed Kingsley Macias DC [address], [place], [address], [facility] 01/31/2025 14:57:52 5 07688: Spinal manipulation , 3 to 4 regions completed Kingsley Macias DC [address], [place], [address], [facility] 01/28/2025 09:40:11 5 99027: Spinal manipulation , 3 to 4 regions completed Kingsley Macias, [place] [address], [place], [address], [facility] 01/24/2025 12:10:02 5 87889: Spinal manipulation , 3 to 4 regions completed Kingsley Macias, [place] [address], [place], [address], [facility] 01/22/2025 20:11:53 5 85145: Spinal manipulation , 3 to 4 regions completed Kingsley Macias, [place] [address], [place], [address], [facility] 01/14/2025 11:32:36 5 94529: Spinal manipulation , 3 to 4 regions completed Denis Bedolla, [place] [address], [place], [address], [facility] 08/30/2024 18:45:28 Imaging Results None recorded. [...] SNOMED-CT Code Diagnosis ICD10 Code Diagnosis Note [id number] Denis Bedolla DC [facility] & [address] [place] [address] 08/30/2024 12:07:51 08/30/2024 18:54:35 Lumbar segmental dysfunction 385283030 M99.03 Low back pain 195129975 M54.50 Somatic dy sfunction of sacral spine 942172308 M99.04 Thoracic s egmental dysfunction 275402510 M99.02 [id number] Kingsley Macias DC [address] [place] [address] 01/14/2025 11:26:32 01/14/2025 12:21:44 Lumbar segmental dysfunction 585043293 M99.03 Low back pain 184703156 M54.50 Somatic dy sfunction of sacral spine 016737147 M99.04 Thoracic s egmental dysfunction 314147050 M99.02 Pain in th oracic spine 295537089 M54.6 Thoracic spondylosis 387 506136 M47.814 Muscle spa sm of thoracic back 5626255136 31614 M62.830 [id number] Kingsley Macias DC [facility] & [address] [facility] [address] 01/21/2025 11:36:07 01/25/2025 17:06:57 Lumbar segmental dysfunction 234753461 M99.03 Low back pain 406972064 M54.50 Somatic dy sfunction of sacral spine 044199000 M99.04 Thoracic s egmental dysfunction 392427284 M99.02 Pain in th oracic spine 854123451 M54.6 Thoracic spondylosis 387 574295 M47.814 Muscle spa sm of thoracic back 5582812254 91873 M62.830 [id number] Kingsley Macias DC [address] [place] [address] 01/24/2025 11:32:47 01/25/2025 17:13:44 Lumbar segmental dysfunction 803283656 M99.03 Low back pain 914420258 M54.50 Somatic dy sfunction of sacral spine 714224968 M99.04 Thoracic s egmental dysfunction 158622172 M99.02 Pain in th oracic spine 986147189 M54.6 Thoracic spondylosis 387 466826 M47.814 Muscle spa sm of thoracic back 4325786873 69292 M62.830 [id number] Kingsley Macias DC [address] [place] [address] 01/28/2025 09:32:31 01/28/2025 10:19:23 Lumbar segmental dysfunction 198272202 M99.03 Low back pain 308232114 M54.50 Somatic dy sfunction of sacral spine 948196515 M99.04 Thoracic s egmental dysfunction 602774689 M99.02 Pain in th oracic spine 206042354 M54.6 Thoracic spondylosis 387 148540 M47.814 Muscle spa sm of thoracic back 3035357390 00173 M62.830 [id number] Kingsley Macias DC [address] [place] [address] 01/31/2025 11:36:58 01/31/2025 15:02:13 Lumbar segmental dysfunction 147815428 M99.03 Low back pain 973938172 M54.50 Somatic dy sfunction of sacral spine 489181797 M99.04 Thoracic s egmental dysfunction 732787436 M99.02 Pain in th oracic spine 711187220 M54.6 Thoracic spondylosis 387 747402 M47.814 Muscle spa sm of thoracic back 9423520936 58171 M62.830 [id number] Kingsley Macias DC [facility] [address] [place] [address] 02/04/2025 09:38:04 02/04/2025 09:51:00 Lumbar segmental dysfunction 595508257 M99.03 Low back pain 171655994 M54.50 Somatic dy sfunction of sacral spine 495550241 M99.04 Thoracic s egmental dysfunction 862463335 M99.02 Pain in th oracic spine 697078961 M54.6 Thoracic spondylosis 387 323498 M47.814 Muscle spa sm of thoracic back 6897920706 62210 M62.830 Kingsley Macias DC [facility] [address] [place] [address] 02/07/2025 11:36:10 02/07/2025 12:02:38 Lumbar segmental dysfunction 522281476 M99.03 Low back pain 051879825 M54.50 Somatic dy sfunction of sacral spine 160116056 M99.04 Thoracic s egmental dysfunction 936640416 M99.02 Pain in th oracic spine 099481838 M54.6 Thoracic spondylosis 387 692915 M47.814 Muscle spa sm of thoracic back 0682476421 90641 M62.830 Health Concerns Section Related Observation LastModified by Organization Detai ls LastModified Time None Recorded Concern Status LastModified by Organization Details LastModified Time None Recorded Advance Directives Directive None Recorded Payers Insurance Date Sequence Insurance Name Policy Number Policy Fong Covered Member ID Fong Member ID Guarantor Name 02/05/2025 1 UMR [id number] Theodore Ferro [id number] [place] Ferro 02/05/2025 2 UMR [id number] Singh Rao [id number] [place] Ferro Notes Date Note Type Note Provider Name and Address Organization Details Recorded Time 01/24/2025 text/html HPI - Lumbar SpineReported bypatient.Location: bilateral Quality:aching Severity:not changing Timing:morning Aggravating Factors:standing Alleviating Factors:ice Patient presents for mid back pain. She was diagnosed with scoliosis 5 years ago. She is currently 17 weeks . Patient was seeing a chiropractor previously. Kingsley Dipesh Macias DC [address], [place], [address], [facility] 01/24/2025 12:10:57 01/28/2025 text/html HPI - Lumbar SpineReported bypatient.Location: bilateral Quality:aching Severity:not changing Timing:morning Aggravating Factors:standing Alleviating Factors:ice Patient presents for mid back pain. She was diagnosed with scoliosis 5 years ago. She is currently 17 weeks . Patient was seeing a chiropractor previously. Kingsley Dipesh Macias DC [address], [place], [address], [facility] 01/28/2025 09:54:52 01/31/2025 text/html HPI - Lumbar SpineReported bypatient.Location: bilateral Quality:aching Severity:not changing Timing:morning Aggravating Factors:standing Alleviating Factors:ice Patient presents for mid back pain. She was diagnosed with scoliosis 5 years ago. She is currently 17 weeks . Patient was seeing a chiropractor previously. Kingsley Macias DC [address], [place], [address], [facility] 01/31/2025 14:58:39 02/04/2025 text/html HPI - Lumbar SpineReported bypatient.Location: bilateral Quality:aching Severity:not changing Timing:morning Aggravating Factors:standing Alleviating Factors:ice Patient presents for mid back pain. She was diagnosed with scoliosis 5 years ago. She is currently 17 weeks . Patient was seeing a chiropractor previously. Kingsley Macias DC [address], [place], [address], [facility] 02/04/2025 09:41:13 02/07/2025 text/html HPI - Lumbar SpineReported bypatient.Location: bilateral Quality:aching Severity:not changing Timing:morning Aggravating Factors:standing Alleviating Factors:ice Patient presents for mid back pain. She was diagnosed with scoliosis 5 years ago. She is currently 17 weeks . Patient was seeing a chiropractor previously. Kingsley Macias DC [address], [place], [address], [facility] [place] [facility] 02/07/2025 12:02:28 OBGyn Episode No OBEpisode recorded.
--- OUTSIDE RECORDS SUMMARY | 2025-02-09 01:53 | XMS_ITS | Continuity of Care Document ---
Author Organization [place] [facility] Address [address] [facility] [address] [place] [address] Assessment Encounter Date Assessment Date Assessment LastModified [...] our office. ecram Not available 01/24/2025 12:10:02 Plan of Treatment Reminders Order Date Submit [...] Organization Details Recorded Time Thoracic segmental dysfunction 625231759 Active 2024 Denis Bedolla DC [address] [facility], [place], [address], [facility] 18:44:22 Low back pain 977165720 Active 2024 Denis Bedolla [place] [address] [facility], [place], [address], [place] [facility] 5 18:44:22 Lumbar segmental dysfunction 450769006 Active 2024 Denis Bedolla HI [address] [facility], [place], [address], [place] [facility] 18:44:22 Somatic dysfunction of sacral spine 417596855 Active 2024 Denis Bedolla HI [address] [facility], [place], [address], [place] [facility] 5 18:44:22 Thoracic spondylosis 941157029 Active 2024 Kingsley Macias DC [address] [place] [address], [place], [address], [place] [facility] 5 11:33:42 Pain in thoracic spine 493969138 Active 2024 Kingsley Macias DC [address] [place] [address], [place], [address], [place] [facility] 5 11:33:42 Muscle spasm of thoracic back 4477173390436 06 Active 2024 Kingsley Macias DC [address] [place] [address], [place], [address], [place] [facility] 5 11:33:42 Problem Notes None recorded. Procedures Surgical History Date Name Laterality Status Provider Name and Address Organization Details Recorded Time 5 90162: Spinal manipulation , 3 to 4 regions completed Kingsley Macias DC [address] [facility], [place], [place], [address], [place] [facility] 02/07/2025 12:01:36 5 15864: Spinal manipulation , 3 to 4 regions completed Kingsley Macias, FILI [address] [facility], [place], [address], [facility] 02/04/2025 09:38:51 5 73632: Spinal manipulation , 3 to 4 regions completed Kingsley Dipesh Seferino HI [address] [facility], [place], [address], [facility] 01/31/2025 14:57:52 5 50863: Spinal manipulation , 3 to 4 regions completed Kingsley Macias DC [address] [facility], [place], [address], [facility] 01/28/2025 09:40:11 5 69488: Spinal manipulation , 3 to 4 regions completed Kingsley Macias DC [address] [facility], [place], [address], [facility] 01/24/2025 12:10:02 5 94010: Spinal manipulation , 3 to 4 regions completed Kingsley Macias DC [address] [facility], [place], [address], [facility] 01/22/2025 20:11:53 5 25064: Spinal manipulation , 3 to 4 regions completed Kingsley Macias DC [address] [facility], [place], [address], [facility] 01/14/2025 11:32:36 5 60382: Spinal manipulation , 3 to 4 regions completed Denis Bedolla HI [address] [facility], [place], [address], [facility] 08/30/2024 18:45:28 Imaging Results None recorded. Procedure [...] SNOMED-CT Code Diagnosis ICD10 Code Diagnosis Note [id number] Kingsley Macias DC [facility] & [address] [facility] [place] [address] 01/14/2025 11:26:32 01/14/2025 12:21:44 Lumbar segmental dysfunction 566914724 M99.03 Low back pain 881822651 M54.50 Somatic dy sfunction of sacral spine 021939497 M99.04 Thoracic s egmental dysfunction 713383753 M99.02 Pain in th oracic spine 257070323 M54.6 Thoracic spondylosis 387 309458 M47.814 Muscle spa sm of thoracic back 5479504620 04120 M62.830 [id number] Kingsley Macias DC [facility] & [address] [facility] [place] [address] 01/21/2025 11:36:07 01/25/2025 17:06:57 Lumbar segmental dysfunction 318208773 M99.03 Low back pain 890038110 M54.50 Somatic dy sfunction of sacral spine 875036107 M99.04 Thoracic s egmental dysfunction 501242516 M99.02 Pain in th oracic spine 094802402 M54.6 Thoracic spondylosis 387 987386 M47.814 Muscle spa sm of thoracic back 5842276190 88548 M62.830 [id number] Kingsley Macias DC [facility] [address] [facility] [place] [address] 01/24/2025 11:32:47 01/25/2025 17:13:44 Lumbar segmental dysfunction 088778863 M99.03 Low back pain 380022525 M54.50 Somatic dy sfunction of sacral spine 121116091 M99.04 Thoracic s egmental dysfunction 224208105 M99.02 Pain in th oracic spine 831718060 M54.6 Thoracic spondylosis 387 773918 M47.814 Muscle spa sm of thoracic back 9554053994 17218 M62.830 Health Concerns Section Related Observation LastModified by Organization Detai ls LastModified Time None Recorded Concern Status LastModified by Organization Details LastModified Time None Recorded Payers Encounter Date Sequence Insurance Name Policy Number Policy Fong Covered Member ID Fong Member ID Guarantor Name 01/24/2025 1 UMR [id number] Theodroe Ferro [id number] Angeles Ferro 01/24/2025 2 UMR [id number] Singh Rao [id number] Angeles Ferro Notes Date Note Type Note Provider Name and Address Organization Details Recorded Time 01/24/2025 text/html HPI - Lumbar SpineReported bypatient.Location: bilateral Quality:aching Severity:not changing Timing:morning Aggravating Factors:standing Alleviating Factors:ice Patient presents for mid back pain. She was diagnosed with scoliosis 5 years ago. She is currently 17 weeks . Patient was seeing a chiropractor previously. Kingsley Macias DC [address] [facility], [address], [facility] 01/24/2025 12:10:57 OBGyn Episode No OBEpisode recorded.
--- OUTSIDE RECORDS SUMMARY | 2025-02-09 01:53 | XMS_ITS | Continuity of Care Document ---
Author Organization [place] [facility] Address [address] [facility] [address] [place] [address] Assessment Encounter Date Assessment Date Assessment LastModified by Organization Details LastModified Time 01/21/2025 01/21/2025 ASSESSMENT: Patient is a good candidate for [...] to contact our office. ecram Not available 01/22/2025 20:11:53 Plan of Treatment Reminders Order Date Submit [...] Organization Details Recorded Time Thoracic segmental dysfunction 418759513 Active 2024 Denis Bedolla DC [address] [facility], [place], [address], [facility] 18:44:22 Low back pain 558397648 Active 2024 Denis Bedolla [place] [address] [facility], [place], [address], [place] [facility] 5 18:44:22 Lumbar segmental dysfunction 954061764 Active 2024 Denis Bedolla [place] [address] [facility], [place], [address], [place] [facility] 18:44:22 Somatic dysfunction of sacral spine 800964502 Active 2024 Denis Bedolla [place] [address] [facility], [place], [address], [place] [facility] 5 18:44:22 Thoracic spondylosis 428155442 Active 2024 Kingsley Macias DC [address] [place] [address], [place], [address], [place] [facility] 5 11:33:42 Pain in thoracic spine 601088338 Active 2024 Kingsley Macias DC [address] [place] [address], [place], [address], [place] [facility] 5 11:33:42 Muscle spasm of thoracic back 0254110498138 06 Active 2024 Kingsley Macias DC [address] [place] [address], [place], [address], [place] [facility] 5 11:33:42 Problem Notes None recorded. Procedures Surgical History Date Name Laterality Status Provider Name and Address Organization Details Recorded Time 5 33601: Spinal manipulation , 3 to 4 regions completed Kingsley Macias DC [address] [facility], [place], [place], [address], [facility] 02/07/2025 12:01:36 5 31190: Spinal manipulation , 3 to 4 regions completed Kingsley Macias, FILI [address] [facility] [address], [place], [address], [facility] 02/04/2025 09:38:51 5 39815: Spinal manipulation , 3 to 4 regions completed Kingsley Dipesh Seferino [place] [address] [facility] [address], [place], [address], [facility] 01/31/2025 14:57:52 5 29837: Spinal manipulation , 3 to 4 regions completed Kingsley Macias DC [address] [facility] [address], [place], [address], [facility] 01/28/2025 09:40:11 5 60342: Spinal manipulation , 3 to 4 regions completed Kingsley Macias DC [address] [facility], [place], [address], [facility] 01/24/2025 12:10:02 5 76106: Spinal manipulation , 3 to 4 regions completed Kingsley Macias DC [address] [facility], [place], [address], [facility] 01/22/2025 20:11:53 5 20312: Spinal manipulation , 3 to 4 regions completed Kingsley Macias DC [address] [facility] [address], [place], [address], [facility] 01/14/2025 11:32:36 5 19208: Spinal manipulation , 3 to 4 regions completed Denis Bedolla OK [address] [facility], [place], [address], [facility] 08/30/2024 18:45:28 Imaging Results None recorded. [...] SNOMED-CT Code Diagnosis ICD10 Code Diagnosis Note [id number] Kingsley Macias DC [facility] & [address] [facility] [place] [address] 01/14/2025 11:26:32 01/14/2025 12:21:44 Lumbar segmental dysfunction 889846576 M99.03 Low back pain 526669482 M54.50 Somatic dy sfunction of sacral spine 159383662 M99.04 Thoracic s egmental dysfunction 291819641 M99.02 Pain in th oracic spine 280477580 M54.6 Thoracic spondylosis 387 014033 M47.814 Muscle spa sm of thoracic back 7205995082 17219 M62.830 [id number] Kingsley Macias DC [facility] & [address] [facility] [place] [address] 01/21/2025 11:36:07 01/25/2025 17:06:57 Lumbar segmental dysfunction 162736088 M99.03 Low back pain 513856429 M54.50 Somatic dy sfunction of sacral spine 047540931 M99.04 Thoracic s egmental dysfunction 341107050 M99.02 Pain in th oracic spine 957539453 M54.6 Thoracic spondylosis 387 735612 M47.814 Muscle spa sm of thoracic back 0934078300 57964 M62.830 Health Concerns Section Related Observation LastModified by Organization Detai ls LastModified Time None Recorded Concern Status LastModified by Organization Details LastModified Time None Recorded Payers Encounter Date Sequence Insurance Name Policy Number Policy Fong Covered Member ID Fong Member ID Guarantor Name 01/21/2025 1 UMR [id number] Theodore Ferro [id number] Angeles Ferro 01/21/2025 2 UMR [id number] Singh Rao [id number] Angeles Ferro Notes Date Note Type Note Provider Name and Address Organization Details Recorded Time 01/21/2025 text/html HPI - Lumbar SpineReported bypatient.Location: bilateral Quality:aching Severity:not changing Timing:morning Aggravating Factors:standing Alleviating Factors:ice Patient presents for mid back pain. She was diagnosed with scoliosis 5 years ago. She is currently 17 weeks . Patient was seeing a chiropractor previously. Kingsley Macias DC [address] [place] [address], [place], [address], [facility] - [facility] 01/22/2025 20:12:59 OBGyn Episode No OBEpisode recorded.
[2025-02-09 03:06] LABS: Hematocrit 38.9 % (33.0-51.0); Hemoglobin* 13.4 gm/dL (12.0-16.0); Immature Granulocytes Pct Auto 0.7 %; Mean Corpuscular HGB Conc 34 gm/dL (32-36); Mean Corpuscular Hemoglobin 31 pg (26-34); Mean Corpuscular Volume 90 fL (80-100); RDW Coefficient of Variation % 13.1 % (11.5-15.5); Red Blood Count 4.34 m/uL (4.00-5.20); White Blood Count* 15.43 K/uL (4.50-11.00)
[2025-02-09 03:08] LABS: Immature Granulocytes Abs Auto 0.10 K/uL (0.00-0.30); Lymphocytes Absolute Auto 2.70 K/uL (0.90-2.90); Slide Review Reflex No
[2025-02-09] MEDS: CALCIUM CARBONATE 500 MG CHEW PO (05:52)
[2025-02-09] MEDS: LACTATED RINGERS 1000 ML 1,000 ML 1200 ML IV (06:11)
--- NOTE | 2025-02-09 06:32 | PM.OBHPLI ---
OB - H&P: HPI Labor/Induction History of Present Illness Date Seen: 02/09/25 Chief Complaint: The patient is a 24 year old 1 para 0 at 40.2 weeks gestation by LMP c/w first trimester US, who presents with uterine contractions. Chief complaint: Maternity : 1 Para: 0 Date of last menstrual period: 05/03/24 Estimated date of delivery: 02/07/25 Gestational age based on last menstrual period: 40 Narrative: Angeles Ferro is a 24 year old at 40.2 weeks' gestation who presents from home with uterine contractions. Start radha at home on 02/08/25 around 20:30. Presented to Center shortly after 01:00 on 02/09/25. Has been radha regularly since then and coping well with labor. course notable for maternal Rh negative status. Fetus is Rh negative as well per NIPT and patient declined Rhogam. She declines blood products for taoism reasons. She has hx of low ferritin and was on PO iron during . She was admitted for symptomatic L ureteral stones at [facility] at 28 weeks' gestation. She has a 5 mm and 6-7 mm stone in L ureter per abdominal US on 11/19/24. Was on PO tamsulosin for a period of time following this, ultimately discontinued as patients renal colic improved. Stones have not yet passed but they are not currently symptomatic. She also has a hx of scoliosis (t10-11, 8 degrees & L2-3, 16 degrees). History of Present Dating criteria: based on LMP care: good care Labs Blood type: 0 (-) negative Rubella: immune RPR/VDLR: nonreactive GBS status: negative HBsAG: negative Meds Home Medications and Allergies Home Medications ?Medication ?Instructions ?Recorded ?Confirmed ?Type doxylamine 10 mg-pyridoxine (vit 1 tab PO DAILY 11/19/24 02/09/25 History B6) 10 mg tablet,delayed release ferrous sulfate 324 mg (65 mg 324 mg PO Q1D 11/19/24 02/09/25 History iron) tablet,delayed release vit no.95-ferrous 1 tab PO DAILY 11/19/24 02/09/25 History fumarate 28 mg-folic acid 800 mcg tablet () Allergies Allergy/AdvReac Type Severity Reaction Status Date / Time No Known Drug Allergies Allergy Verified 02/09/25 01:51 OB - H&P: Exam Physical Exam: Vital signs: Temp Pulse Resp BP Pulse Ox 98.1 F 73 16 103/69 98 02/09/25 05:12 02/09/25 05:12 02/09/25 05:12 02/09/25 05:12 02/09/25 05:12 Narrative: Gen: alert, pleasant, NAD. Appears uncomfortable during contractions. Heart: RRR, no murmurs Lungs: CTA b/l, breathing comfortably on room air Abd: gravid, nontender to palpation : deferred at this time. last check /+1 at 03:50 per RN Extremities: no pitting edema Fetus (Single): Heart Rate Baseline: 120 Monitor Accelerations: Present Monitor Decelerations: None OB - Results Labs Labs: Short CBC 02/09/25 Range/Units 03:01 WBC 15.43 H (4.50-11.00) K/uL Hgb 13.4 (12.0-16.0) gm/dL Hct 38.9 (33.0-51.0) % Plt Count 163 (140-440) K/uL OB - Problem Based A/P Additional Plan (1) 40 weeks gestation of : Status: Acute (2) Active labor at term: Status: Acute Plan Pt requesting epidural. Anesthesia at bedside following my visit with patient. Plan on AROM following epidural placement. Anticipate . Delivery/Labor/Induction Plan Plan: expectant management Induction method: AROM
[2025-02-09] MEDS: BUPIVACAINE 0.25% PF 10 ML 10 ML ML EPIDURAL (06:52)
[2025-02-09] MEDS: ROPIVACAINE 0.2% 100 ml 100 ML 12 MG EPIDURAL ×2 (06:54→14:12)
[2025-02-09] MEDS: PHENYLEPHRINE 100 MCG/ML SYRINGE IVP ×2 (07:09→07:35)
[2025-02-09] MEDS: ONDANSETRON 2 MG/ML inj 4 MG IV ×2 (07:44→13:12)
[2025-02-09] MEDS: LACTATED RINGERS 1000 ML 1,000 ML 125 ML IV (09:06)
[2025-02-09] MEDS: OXYTOCIN 30 unit/500 ML in NS 30 UNIT/500 ML BAG IVPB (09:20)
--- NOTE | 2025-02-09 11:49 | PM.OBPNL ---
Subjective Date Seen: 02/09/25 Narrative: Pt reporting increased pressure. Requesting exam. Objective Exam: Gen: alert, comfortable with epidural Resp: breathing comfortably on RA : blood show; 9 cm/90%/1+ Vital Signs: Last Vital Signs Temp 98.1 F 02/09/25 10:58 Pulse 86 02/09/25 11:36 Resp 16 02/09/25 07:00 BP 118/76 02/09/25 11:36 Pulse Ox 100 02/09/25 08:05 Pelvic Exam Dilation (cm): 9 Effacement (%): 90 Station: +1 Contractions Monitor mode: External Contraction Frequency: Q2-3 min Contraction pattern: Regular Pitocin Rate (mU/min): 4 Assessment Station: +1 Amniotic Membrane Status: AROM Heart Rate Baseline: 120 Senior Care Variability: Moderate (6-25) Monitor Accelerations: Present Monitor Decelerations: None Plan Plan: Continue expectant management. Anticipate .
[2025-02-09] MEDS: miSOPROStoL 800 MCG/4 TABLET PR (15:02)
--- NOTE | 2025-02-09 15:20 | W.PM.VAGD1_ITS ---
Procedure Procedure Done: Global Events: Meconium Stained Fluid Intrapartal Events: Labor Augmentation Delivery augmentation: rupture of membranes and pitocin Delivery monitor: external FHT Route of delivery: Laceration description: Vaginal - 1st Degree Estimated blood loss (mL): 150 Anesthesia type: Epidural Narrative: Angeles Ferro is a 24 yo G1 now P1 who presented in active labor around 01:00 earlier this morning. She progressed in labor naturally to 6 cm, then required AROM and Pitocin for augmentation. She had a lip/rim around 1300 that was easily reduced with one contraction. Meconium-stained fluid was noted shortly after she began pushing. She pushed effectively and delivered a viable male at 14:49. APGARs pending. There was a nuchal cord x1. She had a R vaginal side wall tear that was hemostatic and did not require repair. Placenta delivered spontaneously and intact. She had low uterine tone following bimanual massage and Pitocin as well as a slow flow of vaginal bleeding, so rectal cytotec was administered. , she was noted to have a severe-range blood pressure an d had several elevated during second stage of labor as well. Pre-eclampsia labs are pending. Infant Infant Gender: Male presentation: vertex Placental Delivery Description: Spontaneous Cord Description: 3 Vessels and Nuchal Cord
[2025-02-09 16:20] LABS: Hematocrit 39.9 % (33.0-51.0); Hemoglobin* 13.6 gm/dL (12.0-16.0); Mean Corpuscular HGB Conc 34 gm/dL (32-36); Mean Corpuscular Hemoglobin 31 pg (26-34); Mean Corpuscular Volume 90 fL (80-100); Red Blood Count 4.44 m/uL (4.00-5.20); White Blood Count* 23.39 K/uL (4.50-11.00)
[2025-02-09 16:23] LABS: Slide Review Reflex No
[2025-02-09 16:39] LABS: Alanine Aminotransferase* 30 U/L (4-35); Aspartate Amino Transferase* 45 U/L (12-35); Blood Urea Nitrogen* 9 mg/dL (5-24); Creatinine* 0.5 mg/dL (0.5-1.5); Est. Creatinine Clearance* 132.05; Estimated Glomerular Filt Rate 135 ml/min
[2025-02-09] MEDS: ACETAMINOPHEN 500 MG TABLET 1000 MG PO (20:04)
[2025-02-09 20:40] LABS: Hematocrit 37.0 % (33.0-51.0); Hemoglobin* 12.7 gm/dL (12.0-16.0); Immature Granulocytes Abs Auto 0.10 K/uL (0.00-0.30); Immature Granulocytes Pct Auto 0.3 %; Lymphocytes Absolute Auto 3.10 K/uL (0.90-2.90); Mean Corpuscular HGB Conc 34 gm/dL (32-36); Mean Corpuscular Hemoglobin 31 pg (26-34); Mean Corpuscular Volume 90 fL (80-100); RDW Coefficient of Variation % 13.0 % (11.5-15.5); Red Blood Count 4.12 m/uL (4.00-5.20); Slide Review Reflex No; White Blood Count* 23.44 K/uL (4.50-11.00)
[2025-02-09 20:54] LABS: Appearance Urine Slightly Cloudy (Clear)
[2025-02-09] MEDS: IBUPROFEN 600 MG TABLET PO (22:50)
[2025-02-10 00:17] VITALS: BP 106/68; PULSE 81; RESP 18; TEMP 36.6; O2SAT 97
[2025-02-10] MEDS: ACETAMINOPHEN 500 MG TABLET 1000 MG PO ×3 (02:51→17:21)
[2025-02-10 04:35] VITALS: BP 92/56; PULSE 81; RESP 16; TEMP 36.6; O2SAT 96
[2025-02-10 06:35] LABS: Hemoglobin* 11.6 gm/dL (12.0-16.0)
[2025-02-10] MEDS: IBUPROFEN 600 MG TABLET PO ×3 (06:50→20:46)
[2025-02-10 07:59] VITALS: BP 104/74; PULSE 80; RESP 16; TEMP 36.7; O2SAT 97
--- NOTE | 2025-02-10 08:47 | PM.OBPNVD1 ---
OB - PN:Subj Subjective Date Seen: 02/10/25 Interval history: Doing well this morning. Having cramping with but pain is well controlled with Tylenol and ibuprofen. Had small BM. Lochia appropriate. Working on establishing . OB - PN: Obj Exam Physical Exam: Vital signs: Temp Pulse Resp BP Pulse Ox O2 Del Method 98.1 F 80 16 104/74 97 Room Air 02/10/25 07:59 02/10/25 07:59 02/10/25 07:59 02/10/25 07:59 02/10/25 07:59 02/10/25 07:59 Narrative: Gen: alert, pleasant, NAD Resp: CTA b/l Heart: RRR, no murmurs Abd: fundus firm and below umbilicus Extremities: no peripheral edema OB - PN: Obj Data Labs Labs: Laboratory Results - last 24 hr 02/09/25 02/09/25 02/09/25 16:12 20:30 20:34 WBC 23.39 H 23.44 H RBC 4.44 4.12 Hgb 13.6 12.7 Hct 39.9 37.0 MCV 90 90 MCH 31 31 MCHC 34 34 RDW Coeff of Rufino 13.0 Plt Count 145 166 Neut % (Auto) 81.7 H Lymph % (Auto) 13.1 L Gosper % (Auto) 4.8 Eos % (Auto) 0.0 Baso % (Auto) 0.1 Neut # (Auto) 19.20 H Lymph # (Auto) 3.10 H Gosper # (Auto) 1.10 H Eos # (Auto) 0.00 Baso # (Auto) 0.00 Abs Immat Gran (auto) 0.10 Imm/Tot Granulo (auto) 0.3 BUN 9 Creatinine 0.5 Estimated Creat Clear 132.05 Estimated GFR 135 AST 45 H ALT 30 Urine Color Red A Urine Appearance Slightly Cloudy A Urine pH 7.5 Ur Specific [place] 1.020 Urine Protein 2+ A Urine Glucose (UA) Negative Urine Ketones 1+ A Urine Blood 3+ A Urine Nitrite Negative Urine Bilirubin Negative Urine Urobilinogen 0.2 Ur Leukocyte Esterase 1+ A Urine RBC 5-10 A Urine WBC 25-50 A Ur Squamous Epith Cells Few Urine Bacteria Moderate A Fine Granular Casts Few A 02/10/25 05:59 WBC RBC Hgb 11.6 L Hct MCV MCH MCHC RDW Coeff of Rufino Plt Count Neut % (Auto) Lymph % (Auto) Gosper % (Auto) Eos % (Auto) Baso % (Auto) Neut # (Auto) Lymph # (Auto) Gosper # (Auto) Eos # (Auto) Baso # (Auto) Abs Immat Gran (auto) Imm/Tot Granulo (auto) BUN Creatinine Estimated Creat Clear Estimated GFR AST ALT Urine Color Urine Appearance Urine pH Ur Specific [place] Urine Protein Urine Glucose (UA) Urine Ketones Urine Blood Urine Nitrite Urine Bilirubin Urine Urobilinogen Ur Leukocyte Esterase Urine RBC Urine WBC Ur Squamous Epith Cells Urine Bacteria Fine Granular Casts OB - PN: A/P Delivery Assessment and Plan (1) 40 weeks gestation of : Status: Acute (2) Active labor at term: Status: Acute Plan day: 1 Plan: routine care Comments: Plan to discharge home 02/11/25.
[2025-02-10 12:30] VITALS: BP 112/74; PULSE 80; RESP 16; TEMP 36.9; O2SAT 97
[2025-02-10 16:45] VITALS: BP 114/78; PULSE 78
[2025-02-10 20:00] VITALS: BP 120/80; PULSE 65; RESP 18; TEMP 37.2; O2SAT 97
[2025-02-11] MEDS: ACETAMINOPHEN 500 MG TABLET 1000 MG PO (04:32)
[2025-02-11 04:44] VITALS: BP 121/75; PULSE 66; RESP 20; TEMP 36.6; O2SAT 98
[2025-02-11 07:48] VITALS: BP 108/69; RESP 16; TEMP 36.6; O2SAT 97
--- NOTE | 2025-02-11 08:09 | PM.OBDSVD1 ---
DS: Providers Provider Date Seen: 02/11/25 Date of admission: 02/09/25 02:35 Primary care physician: Fani Loving DO Admitting Clinician: Vilma Malik MD Attending Physician on discharge: Vilma Malik MD DS: Diagnosis Discharge Diagnosis (1) (normal spontaneous vaginal delivery): Status: Acute Exam Narrative: Exam Narrative: Gen: No acute distress Ext: Warm, dry, 2+ pedal pulses, no edema bilaterally. Calves non-tender to palpation. Const: Vital Signs, click to edit/add: Vital Signs - 24 hr 02/10/25 12:30 02/10/25 16:45 02/10/25 20:00 Temperature 98.4 F 98.9 F Pulse Rate [Pulse Oximeter] 80 78 65 Respiratory Rate 16 18 Blood Pressure [Le ft Arm] 114/78 120/80 Blood Pressure [Ri ght Arm] 112/74 Pulse Oximetry 97 97 Oxygen Delivery Me thod Room Air Room Air 02/11/25 04:44 02/11/25 07:48 Temperature 97.8 F 97.9 F Pulse Rate [Pulse Oximeter] 66 Respiratory Rate 20 16 Blood Pressure [Le ft Arm] Blood Pressure [Ri ght Arm] 121/75 108/69 Pulse Oximetry 98 97 Oxygen Delivery Me thod Room Air Room Air OB - DS: Summary Hospital Course Hospital Course: The patient is a 24 year old G 1 P 1 at 40.2 weeks gestation that was admitted to the Center on 02/09/25 for spontaneous labor. She had an uncomplicated vaginal delivery. She delivered a viable male . Patient had severe range BP in Stage II. Patient was shaking, once shaking stopped BPs normalized. No further concern for preEclampsia. She is breast feeding. the patient has done well. Infant Gender: Male Status at Discharge Functional status at discharge: independent ambulation Overall status at discharge: patient is progressing back to baseline Time Spent with Patient Time attestation: Total time spent providing and/or coordinating discharge services: Discharge Plan Discharge Disposition: Home, Self-Care Date of Admission: 02/09/25 02:35 Primary Care Provider: Fani Lovnig Condition: Stable Anticipated Discharge Date/Time: 02/11/25 08:14 Discharge Medications: Continued PNV cmb#95-ferrous fumarate-FA [] 28 mg iron- 800 mcg tablet 1 tab PO DAILY Discontinued doxylamine-pyridoxine (vit B6) 10-10 mg tablet,delayed release (DR/EC) 1 tab PO DAILY ferrous sulfate 324 mg (65 mg iron) tablet,delayed release (DR/EC) 324 mg PO Q1D Discharge Orders: Discharge Order (Routine); Ordered 02/11/25 Ordered By: Pilar Edmonds Patient Education: OB Over the Counter Medication Information, OB Vaginal/Breast Feeding Follow Up Appointments: Fani Loving DO [Primary Care Provider, [facility]] Forms[facility] Inst[facility] DS:Data Additional Comments Additional comments: - Pelvic rest for 6 weeks (no intercourse, tampons or douching), or until one week after vaginal bleeding stops. - Daily activities for the first week should be limited to taking care of patient and her baby, and only as tolerated. - Call MD if fever > 100.4 degrees, bleeding more than 1 pad / hour, foul-smelling discharge, passage of golf-ball sized blood clots, or worsening of pain not controlled by medications.
== END 2025-02-11 10:57 | disposition home or self-care (01) | DRG 806 ==
LOC: OB OUT 02:35 → OB 02:35
PROVIDERS: Family Medicine; Admitting Provider Family Medicine; PCP Family Medicine; Visit Provider Family Medicine
DX: O26.893 Other specified pregnancy related conditions, third trimester (principal); N20.1 Calculus of ureter; Z37.0 Single live birth; O99.892 Other specified diseases and conditions complicating childbirth; Z67.41 Type O blood, Rh negative; O77.0 Labor and delivery complicated by meconium in amniotic fluid; O70.0 First degree perineal laceration during delivery; M41.85 Other forms of scoliosis, thoracolumbar region; Z3A.40 40 weeks gestation of pregnancy
CPT/HCPCS: 36415; 81001; 81003; 82565; 84112; 84450; 84460; 84520; 85018; 85025; 85027; 86592; 86850; 86900; 86901; 87086; A9270; J0665; J2405; J2795; J3010; J7120